=== PATIENT | female | born 1965 | race Caucasian/White ===

== ENCOUNTER → 2022-12-29 07:23 | Outpatient (BNVA) | payer MEDICARE, MEDICAID, SELFPAY | PROVIDERS: PCP Nurse Practitioner Family; Visit Provider Student in an Organized Health Care Education/Training Program | DX: L40.50 Arthropathic psoriasis, unspecified (principal); Z13.1 Encounter for screening for diabetes mellitus | CPT/HCPCS: 36415; 80053; 80061; 83036; 84550; 85025; 85652; 86140; 86481; 86704; 86706; 86709; 86803; 87340; 99202 ==

== ENCOUNTER 2022-12-29 08:34 | Outpatient (REF) | payer MEDICARE, MEDICAID, SELFPAY ==
[2022-12-29 11:01] LABS: MANUAL DIFF FLAG NO
[2022-12-29 11:20] LABS: Basophils Percent Auto 0.7 % (0-2); Eosinophils Absolute Auto 0.2 X10*3/uL (0.0-0.4); Eosinophils Percent Auto 2.5 % (0-4); Hematocrit 38.2 % (37.0-47.0); Hemoglobin 12.5 g/dl (12.0-16.0); Imm Gran Abs Auto 0.02 X10*3/uL (0.00-0.03); Imm Gran Pct Auto 0.3 % (0.0-0.4); Lymphocytes Absolute Auto 1.8 X10*3/uL (1.2-4.9); Mean Corpuscular HGB Conc 32.7 g/dl (31.0-35.0); Mean Corpuscular Hemoglobin 28.5 pg (27.0-33.0); Mean Platelet Volume 12.1 fL (9.4-12.3); Monocytes Absolute Auto 0.6 X10*3/uL (0.1-1.2); Monocytes Percent Auto 9.3 % (2-11); Neutrophils Absolute Auto 3.6 x10*3/uL (2.0-8.3); Neutrophils Percent Auto 58.2 % (45-73); Platelet Count 246 X10*3/uL (160-400); Red Blood Count 4.39 X10*6/uL (4.20-5.50); Red Cell Distribution Width 13.4 % (11.0-16.0); White Blood Count 6.1 X10*3/uL (4.8-10.8)
[2022-12-29 11:36] LABS: Alanine Aminotransferase 24 U/L (0-31); Albumin Level 4.2 g/dL (3.5-5.0); Alkaline Phosphatase 118 U/L (39-117); Anion Gap 12 (12-20); Aspartate Amino Transferase 32 U/L (5-31); Bilirubin Total 0.5 mg/dL (0.0-1.0); Blood Urea Nitrogen 9 mg/dL (9-16); C Reactive Protein 0.36 mg/dL (< or = 0.50); Calcium 9.9 mg/dL (8.4-10.2); Carbon Dioxide 32 mmol/L (22-29); Chloride 103 mmol/L (96-108); Cholesterol 156 mg/dL; Estimated Glomerular Filt Rate > 60; Glucose Random 85 mg/dL (60-115); HDL Cholesterol 38 mg/dL; LDL Cholesterol Calculated 93 mg/dl; Sodium 143 mmol/L (135-145); Total Protein 6.7 g/dL (6.5-8.0); Triglycerides 126 mg/dL; Uric Acid 6.5 mg/dL (2.4-5.7)
[2022-12-29 11:57] LABS: Estimated Average Glucose 103 mg/dL; Hemoglobin A1c % 5.2 %
[2022-12-29 12:01] LABS: Erythrocyte Sedimentation Rate 20 MM/HR (0-20)
[2022-12-29 12:13] LABS: HBS Num1 0.11 mIU/mL (0-7.99); HBc Num1 0.11 S/CO (0.00-0.79); Hepatitis A Antibody IgM 0.19 Index (0-0.79); Hepatitis B Core Antibody Nonreactive (Nonreactive); Hepatitis B Surface Antigen Negative (Negative); ~HepC Num1 0.06 S/CO (0.00-0.79); ~Hepatitis A Antibody IgM Nonreactive (Nonreactive); ~Hepatitis B Surface Antibody NONREACTIVE (Nonreactive); ~Hepatitis C Antibody Nonreactive (Nonreactive)
[2023-01-01 07:54] LABS: TS Negative Control Passed; TS Panel A 0; TS Panel B 2; TS Positive Control Passed; TSpotTB Negative (Negative)
== END 2022-12-29 08:35 | disposition home or self-care (01) ==
LOC: HO.10HDL 08:34
PROVIDERS: Visit Provider Student in an Organized Health Care Education/Training Program
DX: Z13.89 Encounter for screening for other disorder (principal)
CPT/HCPCS: 36415; 80053; 80061; 83036; 84550; 85025; 85652; 86140; 86481; 86704; 86706; 86709; 86803; 87340

== ENCOUNTER 2023-06-09 10:27 | Outpatient (AMB) | payer MEDICARE, MEDICAID, SELFPAY ==
[2023-06-09 10:31] VITALS: BP 142/84; PULSE 77; TEMP 36.7; O2SAT 99; BMI 40.0
--- NOTE | 2023-06-09 10:31 | MHC.OFFVIS ---
Intake Vital Signs 06/09/23 10:31 Height 5 ft 4 in Weight 232 lb 12.93 oz BMI 40.0 BP 142/84 H Position Sitting Pulse 77 Pulse Source Pulse Oximeter Temp 98.1 F Pulse Oximetry (%) 99 Oxygen Delivery Method Room Air Intake Visit Reasons: PsA Intake Note: Pt presents in office as a f/u PsA. pt states hands are very stiff. 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 Required: No Allergies fluticasone Allergy (Intermediate, Verified 06/09/23 10:36) bloody nose NSAIDS (Non-Steroidal Anti-Inflamma Allergy (Intermediate, Verified 06/09/23 10:36) hyperkalemia Seasonal Allergies Allergy (Unknown, Verified 06/09/23 10:36) Unknown amlodipine Adverse Reaction (Severe, Verified 06/09/23 10:36) Swelling Sulfa (Sulfonamide Antibiotics) Adverse Reaction (Mild, Verified 06/09/23 10:36) Unknown Medication List - Last Reconciled 06/09/23 by Gelacio Callahan MD acetaminophen (Tylenol Extra Strength) 1,000 mg PO Q6H PRN albuterol sulfate 90 mcg/actuation (ProAir HFA) 2 puffs inhalation Q6H PRN apremilast (Otezla) 30 mg PO BID azelastine 1 spray intranasal BID PRN calcium carbonate-vitamin D3 600 mg-10 mcg (400 unit) (Calcium 600 + D(3)) 1 tab PO DAILY cholecalciferol (vitamin D3) 25 mcg PO DAILY docusate sodium 100 mg PO BID epinephrine (EpiPen) 0.3 mg IM Q4H PRN furosemide 20 mg PO DAILY hydromorphone 2 mg PO Q6H PRN ipratropium bromide 2 sprays intranasal BID ketotifen fumarate 0.025%(0.035%) (Allergy Eye (ketotifen)) 1 drp ophthalmic (eye) BID levocetirizine 5 mg PO DAILY levothyroxine 112 mcg PO DAILY lidocaine 5% 1 patch topical DAILY naloxone 4 mg/actuation (Narcan) 4 mg intranasal Q2M PRN polyethylene glycol 3350 (Miralax) 17 grams PO DAILY potassium chloride ER 10 mEq PO DAILY prednisone 3 mg PO DAILY pregabalin (Lyrica) 300 mg PO BID ropinirole 0.5 mg PO BEDTIME sennosides (senna) 17.2 mg PO DAILY tofacitinib ER (Xeljanz XR) 11 mg PO DAILY trospium 20 mg PO BID HPI HPI Comments History of Present Illness Details 58 year old female with psoriasis and psoriatic arthritis presents for follow-up. Patient had her right hip replaced back in January and went for a revision in February. States that her right hip is doing well currently. She was off the Otezla around the time of the surgery and her psoriasis came back. Her psoriasis improved as soon as she resumed Otezla. She has been taking Xeljanz regularly for the past 4 months or so. Continues to have pain, swelling and stiffness in her fingers. Initial history: This is a 57-year-old female with the complex past medical history presents for evaluation of psoriatic arthritis. 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 Patient was diagnosed with psoriasis around 2002 and describes numerous therapies including PUVA as well as biologics including Humira and Stelara. Patient states she could not do the injectable drugs. She is currently on Otezla 30 mg Twice daily with good control of her psoriasis. She was diagnosed with psoriatic arthritis in 2019. She failed or could not tolerate leflunomide, methotrexate and sulfasalazine. She had been on Xeljanz with relative good control of her psoriatic arthritis however it was discontinued since July 2022 prior to her left hip replacement it has not been resumed. Patient states that she has been having bilateral hand pain and morning stiffness lasting more than 1 hour. [facility] Medical History Acquired hypothyroidism Adrenal cortical hypofunction Aneurysm, splenic artery Anxiety Asthma CKD (chronic kidney disease), stage IV CTS (carpal tunnel syndrome) GERD (gastroesophageal reflux disease) Glaucoma Hypertension Hypogammaglobulinemia Iron deficiency anemia Low back pain Manic bipolar I disorder Mitral valve regurgitation Morbid obesity DENISE (obstructive sleep apnea) Osteopenia Psoriasis Schizo affective schizophrenia Screening for viral disease Spondylosis Zenker diverticulum Surgical History Deviated septum H/O total knee replacement History of appendectomy History of back surgery History of eyelid surgery History of hip replacement History of tonsillectomy Hx of breast surgery Hx of elbow surgery Hx of foot surgery Family History Father Diabetes Prostate cancer Dementia Lung cancer Brother Asthma Glaucoma Bladder cancer Mother Hypertension Arthritis Social History Household Members: Family Alcohol intake: current Alcohol intake frequency: does not drink Patient Tobacco Use Status: Former Tobacco user Quit Date: 25-30 years Current occupational status: employed 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 Review of Systems [facility] [place] Reports arthralgias, Reports joint swelling and Reports stiffness Physical Exam Vital Signs: Last Vital Signs Temp 98.1 F 06/09/23 10:31 Pulse 77 06/09/23 10:31 BP 142/84 H 06/09/23 10:31 Pulse Ox 99 06/09/23 10:31 Oxygen Delivery Method Room Air 06/09/23 10:31 BMI result Body Mass Index 40.0 Const General: cooperative, healthy appearing and comfortable Nutritional Appearance: obese morbidly obese Orientation/consciousness: patient oriented x3 Limitations: ambulation with cane HEENT Head: Yes normocephalic and Yes atraumatic Mouth: moist mucous membranes Resp Effort & Inspection: normal respiratory effort and able to speak in complete sentences Neuro General: patient oriented x3 Extrem Other: Osteoarthritic changes of both hands with prominent Denise's and Heberden's nodes Puffiness of all patient's fingers tenderness on palpation of her PIP is diffusely. Difficulty to flex all her fingers. Few tender MTPs bilaterally Assessment & Plan Assessment & Plan (1) Psoriatic arthritis: Comment: Diagnosed 2020 Leflunomide ineffective SSZ ineffective & might have caused anemia Methotrexate cause transaminitis with resolution after discontinuation Code(s): L40.50 - Arthropathic psoriasis, unspecified Plan: This is a 57-year-old female with the complex past medical history including psoriasis (dx 2002) and psoriatic arthritis, CKD, chronic anemia (undetermined origin s/p bone marrow biopsy per patient) who presents for psoriatic arthritis follow-up. Patient is currently on Xeljanz and Otezla with very good control of her psoriasis however she continues to have active synovitis affecting her fingers and toes. Will need to change DMARDs. Discussed risks and benefits of Rinvoq. Will DC Xeljanz and start prior authorization for Rinvoq. Continue Otezla 30 mg bid Check x-rays of hands and feet for erosive disease. Labs today and before next visit in 3 month Plan I spent 26 minutes reviewing patient's chart, evaluating patient, ordering diagnostic workup, counseling patient and documenting in the chart Orders: Orders XR hand wrist LT Today L40.50 - Arthropathic psoriasis, unspecified XR hand wrist RT Today L40.50 - Arthropathic psoriasis, unspecified XR ankle LT min 3V Today L40.50 - Arthropathic psoriasis, unspecified XR ankle RT min 3V Today L40.50 - Arthropathic psoriasis, unspecified XR foot LT min 3V Today L40.50 - Arthropathic psoriasis, unspecified XR foot RT min 3V Today L40.50 - Arthropathic psoriasis, unspecified Comprehensive Met. Panel 3 Months L40.50 - Arthropathic psoriasis, unspecified C Reactive Protein 3 Months L40.50 - Arthropathic psoriasis, unspecified Complete Blood Count Auto Diff 3 Months L40.50 - Arthropathic psoriasis, unspecified Erythrocyte Sedimentation Rate 3 Months L40.50 - Arthropathic psoriasis, unspecified Coding Level of Care Code Est Pt Level 4 (34425) Diagnoses Psoriatic arthritis L40.50
== END 2023-06-09 11:10 | disposition home or self-care (01) ==
PROVIDERS: PCP Nurse Practitioner Family; Visit Provider Student in an Organized Health Care Education/Training Program
DX: L40.50 Arthropathic psoriasis, unspecified (principal)
CPT/HCPCS: 99214

== ENCOUNTER → 2023-06-09 10:27 | Outpatient (BNVA) | payer MEDICARE, MEDICAID, SELFPAY | PROVIDERS: Visit Provider Student in an Organized Health Care Education/Training Program | DX: L40.50 Arthropathic psoriasis, unspecified (principal) | CPT/HCPCS: 99212 ==

== ENCOUNTER 2023-06-27 13:59 | Outpatient (REF) | payer MEDICARE, MEDICAID, SELFPAY ==
--- NOTE | ~2023-06-27 | XR_ITS ---
EXAMINATION: Bilateral hand and wrist x-rays CLINICAL INFORMATION: Psoriatic arthritis COMPARISON: None TECHNIQUE: 4 views of each hand and wrist FINDINGS: Right: Bone alignment is normal. No fracture or dislocation. Arthritis at the IP joints with joint space narrowing and osteophyte formation. Mild arthritis at the first MCP and DETENTION joints with joint space narrowing. Soft tissues are unremarkable. Left: Bone alignment is normal. No fracture or dislocation is seen. Osteoarthritis at the IP joints with joint space narrowing and osteophyte formation. Mild osteoarthritis with joint space and small osteophytes narrowing at the first MCP, and first DETENTION joints. There is also joint space narrowing at the second through fifth MCP joints. Soft tissues are unremarkable. 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 There is also joint space narrowing at the left MCP joints.
--- NOTE | ~2023-06-27 | XR_ITS ---
EXAMINATION: XR FOOT, RIGHT XR FOOT, LEFT XR ANKLE, RIGHT XR Ankle, left CLINICAL INFORMATION: Psoriatic arthritis. COMPARISON: None. TECHNIQUE: 3 views of each foot and ankle. FINDINGS: LEFT FOOT: There is surgical hardware post arthrodesis of the 2nd and 3rd MTP joints. There is ulnar deviation of the 2nd and 3rd toes at the MTP joints. Bone alignment is otherwise normal. No fracture or dislocation. Large calcaneal spurs. LEFT ANKLE: Bone alignment is normal. No fracture or dislocation. Normal ankle mortise. Normal soft tissues. RIGHT FOOT: There is mild hallux valgus deformity at the 1st MTP joint. There is ulnar deviation of the 2nd and 3rd toes at the MTP joints. Bone alignment is otherwise normal. There is mild joint space narrowing at the 1st MTP joint. Joint spaces are otherwise normal. Old healed fracture of the proximal phalanx of the 5th toe. No acute fracture. Large calcaneal spurs. RIGHT ANKLE: Bone alignment is normal. No fracture or dislocation. Normal ankle mortise. Normal soft tissues. XR/XR ankle LT min 3V IMPRESSION: Left foot and ankle: Postsurgical arthrodesis of the 2nd and 3rd MTP joints. Ulnar deviation of the 2nd and 3rd toes at the MTP joints. Large calcaneal spurs. Right foot and ankle: Mild hallux valgus deformity and degenerative change at the 1st MTP joint. Ulnar deviation of the 2nd and 3rd toes at the MTP joint. Healed proximal phalanx 5th toe fracture. Large calcaneal spurs.
--- NOTE | ~2023-06-27 | XR_ITS ---
EXAMINATION: XR FOOT, RIGHT XR FOOT, LEFT XR ANKLE, RIGHT XR Ankle, left CLINICAL INFORMATION: Psoriatic arthritis. COMPARISON: None. TECHNIQUE: 3 views of each foot and ankle. FINDINGS: LEFT FOOT: There is surgical hardware post arthrodesis of the 2nd and 3rd MTP joints. There is ulnar deviation of the 2nd and 3rd toes at the MTP joints. Bone alignment is otherwise normal. No fracture or dislocation. Large calcaneal spurs. LEFT ANKLE: Bone alignment is normal. No fracture or dislocation. Normal ankle mortise. Normal soft tissues. RIGHT FOOT: There is mild hallux valgus deformity at the 1st MTP joint. There is ulnar deviation of the 2nd and 3rd toes at the MTP joints. Bone alignment is otherwise normal. There is mild joint space narrowing at the 1st MTP joint. Joint spaces are otherwise normal. Old healed fracture of the proximal phalanx of the 5th toe. No acute fracture. Large calcaneal spurs. RIGHT ANKLE: Bone alignment is normal. No fracture or dislocation. Normal ankle mortise. Normal soft tissues. XR/XR foot RT min 3V IMPRESSION: Left foot and ankle: Postsurgical arthrodesis of the 2nd and 3rd MTP joints. Ulnar deviation of the 2nd and 3rd toes at the MTP joints. Large calcaneal spurs. Right foot and ankle: Mild hallux valgus deformity and degenerative change at the 1st MTP joint. Ulnar deviation of the 2nd and 3rd toes at the MTP joint. Healed proximal phalanx 5th toe fracture. Large calcaneal spurs.
--- NOTE | ~2023-06-27 | XR_ITS ---
EXAMINATION: XR FOOT, RIGHT XR FOOT, LEFT XR ANKLE, RIGHT XR Ankle, left CLINICAL INFORMATION: Psoriatic arthritis. COMPARISON: None. TECHNIQUE: 3 views of each foot and ankle. FINDINGS: LEFT FOOT: There is surgical hardware post arthrodesis of the 2nd and 3rd MTP joints. There is ulnar deviation of the 2nd and 3rd toes at the MTP joints. Bone alignment is otherwise normal. No fracture or dislocation. Large calcaneal spurs. LEFT ANKLE: Bone alignment is normal. No fracture or dislocation. Normal ankle mortise. Normal soft tissues. RIGHT FOOT: There is mild hallux valgus deformity at the 1st MTP joint. There is ulnar deviation of the 2nd and 3rd toes at the MTP joints. Bone alignment is otherwise normal. There is mild joint space narrowing at the 1st MTP joint. Joint spaces are otherwise normal. Old healed fracture of the proximal phalanx of the 5th toe. No acute fracture. Large calcaneal spurs. RIGHT ANKLE: Bone alignment is normal. No fracture or dislocation. Normal ankle mortise. Normal soft tissues. XR/XR foot LT min 3V IMPRESSION: Left foot and ankle: Postsurgical arthrodesis of the 2nd and 3rd MTP joints. Ulnar deviation of the 2nd and 3rd toes at the MTP joints. Large calcaneal spurs. Right foot and ankle: Mild hallux valgus deformity and degenerative change at the 1st MTP joint. Ulnar deviation of the 2nd and 3rd toes at the MTP joint. Healed proximal phalanx 5th toe fracture. Large calcaneal spurs.
--- NOTE | ~2023-06-27 | XR_ITS ---
EXAMINATION: XR FOOT, RIGHT XR FOOT, LEFT XR ANKLE, RIGHT XR Ankle, left CLINICAL INFORMATION: Psoriatic arthritis. COMPARISON: None. TECHNIQUE: 3 views of each foot and ankle. FINDINGS: LEFT FOOT: There is surgical hardware post arthrodesis of the 2nd and 3rd MTP joints. There is ulnar deviation of the 2nd and 3rd toes at the MTP joints. Bone alignment is otherwise normal. No fracture or dislocation. Large calcaneal spurs. LEFT ANKLE: Bone alignment is normal. No fracture or dislocation. Normal ankle mortise. Normal soft tissues. RIGHT FOOT: There is mild hallux valgus deformity at the 1st MTP joint. There is ulnar deviation of the 2nd and 3rd toes at the MTP joints. Bone alignment is otherwise normal. There is mild joint space narrowing at the 1st MTP joint. Joint spaces are otherwise normal. Old healed fracture of the proximal phalanx of the 5th toe. No acute fracture. Large calcaneal spurs. RIGHT ANKLE: Bone alignment is normal. No fracture or dislocation. Normal ankle mortise. Normal soft tissues. XR/XR ankle RT min 3V IMPRESSION: Left foot and ankle: Postsurgical arthrodesis of the 2nd and 3rd MTP joints. Ulnar deviation of the 2nd and 3rd toes at the MTP joints. Large calcaneal spurs. Right foot and ankle: Mild hallux valgus deformity and degenerative change at the 1st MTP joint. Ulnar deviation of the 2nd and 3rd toes at the MTP joint. Healed proximal phalanx 5th toe fracture. Large calcaneal spurs.
--- NOTE | ~2023-06-27 | XR_ITS ---
EXAMINATION: Bilateral hand and wrist x-rays CLINICAL INFORMATION: Psoriatic arthritis COMPARISON: None TECHNIQUE: 4 views of each hand and wrist FINDINGS: Right: Bone alignment is normal. No fracture or dislocation. Arthritis at the IP joints with joint space narrowing and osteophyte formation. Mild arthritis at the first MCP and RETIREMENT joints with joint space narrowing. Soft tissues are unremarkable. Left: Bone alignment is normal. No fracture or dislocation is seen. Osteoarthritis at the IP joints with joint space narrowing and osteophyte formation. Mild osteoarthritis with joint space and small osteophytes narrowing at the first MCP, and first RETIREMENT joints. There is also joint space narrowing at the second through fifth MCP joints. Soft tissues are unremarkable. XR/XR hand wrist LT IMPRESSION: Bilateral osteoarthritis at the IP, first MCP and RETIREMENT joints. There is also joint space narrowing at the left MCP joints.
== END 2023-06-27 14:00 | disposition home or self-care (01) ==
LOC: HO.XRAY 13:59
PROVIDERS: PCP Nurse Practitioner Family; Visit Provider Student in an Organized Health Care Education/Training Program
DX: L40.50 Arthropathic psoriasis, unspecified (principal)
CPT/HCPCS: 73110; 73130; 73610; 73630

== ENCOUNTER 2023-09-05 13:34 | Outpatient (REF) | payer MEDICARE, MEDICAID, SELFPAY ==
[2023-09-05 13:49] LABS: MANUAL DIFF FLAG NO
[2023-09-05 14:15] LABS: Basophils Absolute Auto 0.1 X10*3/uL (0.0-0.2); Basophils Percent Auto 0.9 % (0-2); Eosinophils Absolute Auto 0.1 X10*3/uL (0.0-0.4); Eosinophils Percent Auto 1.5 % (0-4); Hematocrit 37.7 % (37.0-47.0); Hemoglobin 12.4 g/dl (12.0-16.0); Imm Gran Abs Auto 0.02 X10*3/uL (0.00-0.03); Imm Gran Pct Auto 0.4 % (0.0-0.4); Lymphocytes Absolute Auto 1.1 X10*3/uL (1.2-4.9); Lymphocytes Percent Auto 19.8 % (20-40); Mean Corpuscular HGB Conc 32.9 g/dl (31.0-35.0); Mean Corpuscular Hemoglobin 31.4 pg (27.0-33.0); Mean Corpuscular Volume 95.4 fL (80.0-98.0); Mean Platelet Volume 12.4 fL (9.4-12.3); Monocytes Absolute Auto 0.6 X10*3/uL (0.1-1.2); Neutrophils Absolute Auto 3.7 x10*3/uL (2.0-8.3); Neutrophils Percent Auto 67.4 % (45-73); Platelet Count 173 X10*3/uL (160-400); Red Blood Count 3.95 X10*6/uL (4.20-5.50); Red Cell Distribution Width 12.9 % (11.0-16.0); White Blood Count 5.5 X10*3/uL (4.8-10.8)
[2023-09-05 14:45] LABS: Alanine Aminotransferase 21 U/L (0-31); Albumin Level 4.3 g/dL (3.5-5.0); Alkaline Phosphatase 110 U/L (39-117); Anion Gap 16 (12-20); Aspartate Amino Transferase 33 U/L (5-31); Bilirubin Total 0.6 mg/dL (0.0-1.0); Blood Urea Nitrogen 9 mg/dL (9-16); C Reactive Protein < 0.10 mg/dL (< or = 0.50); Calcium 10.3 mg/dL (8.4-10.2); Carbon Dioxide 29 mmol/L (22-29); Chloride 103 mmol/L (96-108); Estimated Glomerular Filt Rate > 60; Glucose Random 97 mg/dL (60-115); Potassium 3.8 mmol/L (3.3-5.1); Sodium 144 mmol/L (135-145)
[2023-09-05 14:52] LABS: Erythrocyte Sedimentation Rate 13 MM/HR (0-20)
== END 2023-09-05 13:35 | disposition home or self-care (01) ==
LOC: HO.LAB 13:34
PROVIDERS: PCP Nurse Practitioner Family; Visit Provider Student in an Organized Health Care Education/Training Program
DX: L40.50 Arthropathic psoriasis, unspecified (principal)
CPT/HCPCS: 36415; 80053; 85025; 85652; 86140

== ENCOUNTER 2023-09-08 10:22 | Outpatient (AMB) | payer MEDICARE, MEDICAID, SELFPAY ==
[2023-09-08 10:26] VITALS: BP 122/68; PULSE 87; TEMP 36.2; O2SAT 99; BMI 38.6
--- NOTE | 2023-09-08 10:26 | A.OFFVIS_ITS ---
Intake Vital Signs 09/08/23 10:26 Height 5 ft 4 in Weight 224 lb 13.944 oz BMI 38.6 BP 122/68 Blood Pressure Location Rt brachial Position Sitting Pulse 87 Pulse Source Pulse Oximeter Temp 97.2 F Temp Source Skin Pulse Oximetry (%) 99 Intake Visit Reasons: 3 mnts f/u for PsA Intake Note: Pt last seen 06/09/23, presents today for follow up and test results. Currently on Otezla and rinvoq. Would like to discuss continued use of rinvoq, feels it is not doing anything different than xeljanz. Casing Builder Required: No Accompanied by: Self / Same As Patient Allergies fluticasone Allergy (Intermediate, Verified 09/08/23 10:30) bloody nose NSAIDS (Non-Steroidal Anti-Inflamma Allergy (Intermediate, Verified 09/08/23 10:30) hyperkalemia Seasonal Allergies Allergy (Unknown, Verified 09/08/23 10:30) Unknown amlodipine Adverse Reaction (Severe, Verified 09/08/23 10:30) Swelling Sulfa (Sulfonamide Antibiotics) Adverse Reaction (Mild, Verified 09/08/23 10:30) Unknown Medication List - Last Reconciled 09/08/23 by Gelacio Callahan MD acetaminophen (Tylenol Extra Strength) 1,000 mg PO Q6H PRN albuterol sulfate 90 mcg/actuation (ProAir HFA) 2 puffs inhalation Q6H PRN apremilast (Otezla) 30 mg PO BID azelastine 1 spray intranasal BID PRN calcium carbonate-vitamin D3 600 mg-10 mcg (400 unit) (Calcium 600 + D(3)) 1 tab PO DAILY cholecalciferol (vitamin D3) 25 mcg PO DAILY docusate sodium 100 mg PO BID epinephrine (EpiPen) 0.3 mg IM Q4H PRN furosemide 20 mg PO DAILY hydromorphone 2 mg PO Q6H PRN ipratropium bromide 2 sprays intranasal BID ketotifen fumarate 0.025%(0.035%) (Allergy Eye (ketotifen)) 1 drp ophthalmic (eye) BID levocetirizine 5 mg PO DAILY levothyroxine 112 mcg PO DAILY lidocaine 5% 1 patch topical DAILY naloxone 4 mg/actuation (Narcan) 4 mg intranasal Q2M PRN polyethylene glycol 3350 (Miralax) 17 grams PO DAILY potassium chloride ER 10 mEq PO DAILY prednisone 3 mg PO DAILY pregabalin (Lyrica) 300 mg PO BID Rinvoq ER (upadacitinib) 15 mg PO DAILY NS ropinirole 0.5 mg PO BEDTIME sennosides (senna) 17.2 mg PO DAILY trospium 20 mg PO BID HPI HPI Comments History of Present Illness Details 58 year old female with psoriasis and ps oriatic arthritis presents for follow-up. She is on Otezla and Rinvoq. States that she does not feel any different since starting switching from Xeljanz to Rinvoq 3 months ago. She continues to have pain and stiffness in her fingers. Gets intermittent triggering of some of her fingers as well. States that her psoriasis is very well controlled. Initial history: This is a 57-year-old female with the complex past medical history presents for evaluation of psoriatic arthritis. 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 Patient was diagnosed with psoriasis around 2002 and describes numerous therapies including PUVA as well as biologics including Humira and Stelara. Patient states she could not do the injectable drugs. She is currently on Otezla 30 mg Twice daily with good control of her psoriasis. She was diagnosed with psoriatic arthritis in 2019. She failed or could not tolerate leflunomide, methotrexate and sulfasalazine. She had been on Xeljanz with relative good control of her psoriatic arthritis however it was discontinued since July 2022 prior to her left hip replacement it has not been resumed. Patient states that she has been having bilateral hand pain and morning stiffness lasting more than 1 hour. [facility] Medical History (Updated 09/08/23 @ 11:06 by Gelacio Callahan MD) Low back pain Spondylosis Psoriasis Zenker diverticulum GERD (gastroesophageal reflux disease) Asthma CKD (chronic kidney disease), stage IV Osteopenia Aneurysm, splenic artery Mitral valve regurgitation Hypertension Glaucoma CTS (carpal tunnel syndrome) DENISE (obstructive sleep apnea) Anxiety Manic bipolar I disorder Schizo affective schizophrenia Iron deficiency anemia Hypogammaglobulinemia Morbid obesity Adrenal cortical hypofunction Acquired hypothyroidism Surgical History Deviated septum History of eyelid surgery Hx of elbow surgery History of appendectomy Hx of breast surgery History of tonsillectomy History of back surgery Hx of foot surgery H/O total knee replacement History of hip replacement Family History Father Diabetes Prostate cancer Dementia Lung cancer Brother Asthma Glaucoma Bladder cancer Mother Hypertension Arthritis Social History Household Members: Family Alcohol intake: current Alcohol intake frequency: does not drink Patient Tobacco Use Status: Former Tobacco user Quit Date: 25-30 years Current occupational status: employed 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 [facility] [place] Reports arthralgias and Reports stiffness Physical Exam Vital Signs: Last Vital Signs Temp 97.2 F 09/08/23 10:26 Pulse 87 09/08/23 10:26 BP 122/68 09/08/23 10:26 Pulse Ox 99 09/08/23 10:26 BMI result Body Mass Index 38.6 Const General: cooperative, healthy appearing and comfortable Nutritional Appearance: obese morbidly obese Orientation/consciousness: patient oriented x3 Limitations: ambulation with cane HEENT Head: Yes normocephalic and Yes atraumatic Mouth: moist mucous membranes Resp Effort & Inspection: normal respiratory effort and able to speak in complete sentences Neuro General: patient oriented x3 Extrem Other: Osteoarthritic changes of both hands with prominent Denise's and Heberden's nodes, tender to palpation Difficulty to flex all her fingers. Triggering of right index, left index finger Assessment & Plan Assessment & Plan (1) Psoriatic arthritis: Comment: Diagnosed 2019 Leflunomide ineffective SSZ ineffective & might have caused anemia Methotrexate cause transaminitis with resolution after discontinuation [employer] had many bruises with self injection Xeljanz switched to Rinvoq 06/2023 Code(s): L40.50 - Arthropathic psoriasis, unspecified Plan: 58-year-old female with psoriasis and psoriatic arthritis returns for follow-up. On Rinvoq 15 mg daily and Otezla 30 mg Twice daily. He had been on Rinvoq for 3 months now. Does not feel any difference. Upon evaluation. I do not see any active synovitis. Her bilateral hand x-rays show significant bilateral hand osteoarthritis. Inflammatory markers are normal. At this point I believe patient's symptoms are likely due to significant hand osteoarthritis rather than psoriatic arthritis. We discussed different treatment options for hand osteoarthritis such as occupational therapy, Tylenol, NSAIDs. Patient states that she cannot use any oral or topical NSAIDs. She takes Tylenol. She is not interested in occupational therapy. Not interested in buying a paraffin wax machi Continue Rinvoq 15 mg daily. Continue Otezla 30 mg Twice daily In the future can consider reducing Rinvoq to 1 tab every other day Labs before next visit in 4 months. (2) Trigger finger: Code(s): M65.30 - Trigger finger, unspecified finger Qualifiers: Trigger finger location: unspecified finger Laterality: unspecified laterality Qualified Code(s): M65.30 - Trigger finger, unspecified finger Plan: Triggering of multiple fingers. Patient not interested injection today. Can consider injection in the future (3) Immunization counseling: Code(s): Z71.85 - Encounter for immunization safety counseling Plan: Discussed ACR vaccination guidelines for adults with autoimmune rheumatic disease on immune suppression. Patient received the flu vaccine and COVID booster for this season. Plan I spent 35 minutes reviewing patient's chart, evaluating patient, ordering diagnostic workup, counseling patient and documenting in the chart Orders: Orders Complete Blood Count Auto Diff 4 Months L40.50 - Arthropathic psoriasis, unspecified C Reactive Protein 4 Months L40.50 - Arthropathic psoriasis, unspecified Erythrocyte Sedimentation Rate 4 Months L40.50 - Arthropathic psoriasis, unspecified Comprehensive Met. Panel 4 Months L40.50 - Arthropathic psoriasis, unspecified Coding Level of Care Code Est Pt Level 4 (81336) Diagnoses Psoriatic arthritis L40.50 Trigger finger, unspecified finger, unspecified laterality M65.30 Trigger finger location: unspecified finger Laterality: unspecified laterality Immunization counseling Z71.85
== END 2023-09-08 11:01 | disposition home or self-care (01) ==
PROVIDERS: PCP Nurse Practitioner Family; Visit Provider Student in an Organized Health Care Education/Training Program
DX: L40.50 Arthropathic psoriasis, unspecified (principal); M65.30 Trigger finger, unspecified finger; Z71.85 Encounter for immunization safety counseling
CPT/HCPCS: 99214

== ENCOUNTER → 2023-09-08 10:22 | Outpatient (BNVA) | payer MEDICARE, MEDICAID, SELFPAY | PROVIDERS: PCP Nurse Practitioner Family; Visit Provider Student in an Organized Health Care Education/Training Program | DX: L40.50 Arthropathic psoriasis, unspecified (principal); M65.30 Trigger finger, unspecified finger; Z71.85 Encounter for immunization safety counseling | CPT/HCPCS: 99212 ==

== ENCOUNTER 2024-01-06 15:48 | Outpatient (REF) | payer MEDICARE, MEDICAID, SELFPAY ==
[2024-01-06 16:06] LABS: MANUAL DIFF FLAG NO
[2024-01-06 17:38] LABS: Basophils Percent Auto 0.7 % (0-2); Eosinophils Percent Auto 0.5 % (0-4); Hematocrit 37.3 % (37.0-47.0); Hemoglobin 12.4 g/dl (12.0-16.0); Imm Gran Abs Auto 0.01 X10*3/uL (0.00-0.03); Imm Gran Pct Auto 0.2 % (0.0-0.4); Lymphocytes Absolute Auto 0.9 X10*3/uL (1.2-4.9); Lymphocytes Percent Auto 21.3 % (20-40); Mean Corpuscular HGB Conc 33.2 g/dl (31.0-35.0); Mean Corpuscular Hemoglobin 31.8 pg (27.0-33.0); Mean Corpuscular Volume 95.6 fL (80.0-98.0); Mean Platelet Volume 12.3 fL (9.4-12.3); Monocytes Absolute Auto 0.5 X10*3/uL (0.1-1.2); Monocytes Percent Auto 11.6 % (2-11); Neutrophils Absolute Auto 2.8 x10*3/uL (2.0-8.3); Neutrophils Percent Auto 65.7 % (45-73); Platelet Count 173 X10*3/uL (160-400); Red Cell Distribution Width 13.2 % (11.0-16.0); White Blood Count 4.2 X10*3/uL (4.8-10.8)
[2024-01-06 18:09] LABS: Alanine Aminotransferase 20 U/L (0-31); Albumin Level 4.2 g/dL (3.5-5.0); Alkaline Phosphatase 102 U/L (39-117); Anion Gap 13 (12-20); Aspartate Amino Transferase 31 U/L (5-31); Bilirubin Total 0.6 mg/dL (0.0-1.0); Blood Urea Nitrogen 8 mg/dL (9-16); C Reactive Protein < 0.04 mg/dL (< or = 0.50); Calcium 9.7 mg/dL (8.4-10.2); Carbon Dioxide 31 mmol/L (22-29); Chloride 105 mmol/L (96-108); Estimated Glomerular Filt Rate 53; Glucose Random 84 mg/dL (60-115); Potassium 3.8 mmol/L (3.3-5.1); Sodium 145 mmol/L (135-145); Total Protein 6.7 g/dL (6.5-8.0)
[2024-01-06 20:39] LABS: Erythrocyte Sedimentation Rate 8 MM/HR (0-20)
== END 2024-01-06 15:49 | disposition home or self-care (01) ==
LOC: HO.LAB 15:48
PROVIDERS: PCP Nurse Practitioner Family; Visit Provider Student in an Organized Health Care Education/Training Program
DX: L40.50 Arthropathic psoriasis, unspecified (principal)
CPT/HCPCS: 36415; 80053; 85025; 85652; 86140

== ENCOUNTER 2024-01-11 13:10 | Outpatient (AMB) | payer MEDICARE, MEDICAID, SELFPAY ==
--- NOTE | 2024-01-11 13:13 | MHC.OFFVIS ---
Intake Vital Signs 01/11/24 13:14 Height 5 ft 4 in Weight 217 lb 6.012 oz BMI 37.3 BP 140/78 H Blood Pressure Location Lt brachial Position Sitting Pulse 90 Pulse Source Pulse Oximeter Pulse Oximetry (%) 97 Oxygen Delivery Method Room Air Intake Visit Reasons: PsA Intake Note: Patient last seen 09/08/23 presents today for follow up and test results. 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 Tracer Required: No Accompanied by: Self / Same As Patient Allergies fluticasone Allergy (Intermediate, Verified 09/08/23 10:30) bloody nose NSAIDS (Non-Steroidal Anti-Inflamma Allergy (Intermediate, Verified 09/08/23 10:30) hyperkalemia Seasonal Allergies Allergy (Unknown, Verified 09/08/23 10:30) Unknown amlodipine Adverse Reaction (Severe, Verified 09/08/23 10:30) Swelling Sulfa (Sulfonamide Antibiotics) Adverse Reaction (Mild, Verified 09/08/23 10:30) Unknown Medication List - Last Reconciled 01/11/24 by Gelacio Callahan MD acetaminophen (Tylenol Extra Strength) 1,000 mg PO Q6H PRN albuterol sulfate 90 mcg/actuation (ProAir HFA) 2 puffs inhalation Q6H PRN apremilast (Otezla) 30 mg PO BID azelastine 1 spray intranasal BID PRN calcium carbonate-vitamin D3 600 mg-10 mcg (400 unit) (Calcium 600 + D(3)) 1 tab PO DAILY cholecalciferol (vitamin D3) 25 mcg PO DAILY docusate sodium 100 mg PO BID epinephrine (EpiPen) 0.3 mg IM Q4H PRN furosemide 20 mg PO DAILY hydromorphone 2 mg PO Q6H PRN ipratropium bromide 2 sprays intranasal BID ketotifen fumarate 0.025%(0.035%) (Allergy Eye (ketotifen)) 1 drp ophthalmic (eye) BID levocetirizine 5 mg PO DAILY levothyroxine 112 mcg PO DAILY lidocaine 5% 1 patch topical DAILY naloxone 4 mg/actuation (Narcan) 4 mg intranasal Q2M PRN polyethylene glycol 3350 (Miralax) 17 grams PO DAILY potassium chloride ER 10 mEq PO DAILY prednisone 3 mg PO DAILY pregabalin (Lyrica) 300 mg PO BID Rinvoq ER (upadacitinib) 15 mg PO DAILY NS ropinirole 0.5 mg PO BEDTIME sennosides (senna) 17.2 mg PO DAILY trospium 20 mg PO BID HPI HPI Comments History of Present Illness Details 58 year old female with psoriasis and psoriatic arthritis presents for follow-up. She is on Otezla and Rinvoq. She states that recently she has been dropping things from her left hand. She mentioned that she had nerve testing of her arms years ago and was told that she has mild carpal tunnel. She had wrist splints at home but she lost them. She has been having splits of her right thumb. This usually happens during wintertime when it is more dry. Sometimes the splits take a very long time to heal and is painful. She applies moisturizers and antibiotics as well as Band-Aids. But they keep recurring. He has been having lower back pain as well as pain on the outside of her right hip recently. She has not been sick over the fall and winter. Initial history: This is a 57-year-old female with the complex past medical history presents for evaluation of psoriatic arthritis. She also has history of CKD, (anemia of undetermined origin s/p bone marrow biopsy per patient) Her previous patient resource specialist left the practice. Patient was diagnosed with psoriasis around 2002 and describes numerous therapies including PUVA as well as biologics including Humira and Stelara. Patient states she could not do the injectable drugs. She is currently on Otezla 30 mg Twice daily with good control of her psoriasis. She was diagnosed with psoriatic arthritis in 2019. She failed or could not tolerate leflunomide, methotrexate and sulfasalazine. She had been on Xeljanz with relative good control of her psoriatic arthritis however it was discontinued since July 2022 prior to her left hip replacement it has not been resumed. Patient states that she has been having bilateral hand pain and morning stiffness lasting more than 1 hour. [facility] Medical History Low back pain Spondylosis Psoriasis Zenker diverticulum GERD (gastroesophageal reflux disease) Asthma CKD (chronic kidney disease), stage IV Osteopenia Aneurysm, splenic artery Mitral valve regurgitation Hypertension Glaucoma CTS (carpal tunnel syndrome) DENISE (obstructive sleep apnea) Anxiety Manic bipolar I disorder Schizo affective schizophrenia Iron deficiency anemia Hypogammaglobulinemia Morbid obesity Adrenal cortical hypofunction Acquired hypothyroidism Surgical History Deviated septum History of eyelid surgery Hx of elbow surgery History of appendectomy Hx of breast surgery History of tonsillectomy History of back surgery Hx of foot surgery H/O total knee replacement History of hip replacement Family History Father Diabetes Prostate cancer Dementia Lung cancer Brother Asthma Glaucoma Bladder cancer Mother Hypertension Arthritis Social History Household Members: Family Alcohol intake: current Alcohol intake frequency: does not drink Patient Tobacco Use Status: Former Tobacco user Quit Date: 25-30 years Current occupational status: employed Current occupation: [employer] Reports back pain, Reports arthralgias and Reports numbness Skin/Breast Reports non-healing lesions Neuro Reports numbness Physical Exam Vital Signs: Last Vital Signs Pulse 90 01/11/24 13:14 BP 140/78 H 01/11/24 13:14 Pulse Ox 97 01/11/24 13:14 Oxygen Delivery Method Room Air 01/11/24 13:14 BMI result Body Mass Index 37.3 Const General: cooperative, healthy appearing and comfortable Nutritional Appearance: obese morbidly obese Orientation/consciousness: patient oriented x3 Limitations: ambulation with cane HEENT Head: Yes normocephalic and Yes atraumatic Mouth: moist mucous membranes Resp Effort & Inspection: normal respiratory effort and able to speak in complete sentences Auscultation: clear to auscultation bilaterally Cardio Rate: regular rate Rhythm: regular rhythm Skin Other: Longitudinal open wounds on right thumb does not look infected Neuro General: patient oriented x3 Extrem Other: Osteoarthritic changes of both hands with no active synovitis Positive Tinel sign on the left Bilateral lower lumbar paraspinal muscle tenderness Right trochanteric bursa area tenderness Assessment & Plan Assessment & Plan (1) Psoriatic arthritis: Comment: Diagnosed 2019 Leflunomide ineffective SSZ ineffective & might have caused anemia Methotrexate cause transaminitis with resolution after discontinuation [employer] had many bruises with self injection Xeljanz switched to Rinvoq 06/2023 effective Code(s): L40.50 - Arthropathic psoriasis, unspecified Plan: 58-year-old female with psoriasis and psoriatic arthritis returns for follow-up. On Rinvoq 15 mg daily and Otezla 30 mg Twice daily. Doing well overall with no active synovitis. Inflammatory markers are normal. Labs showed mild lymphopenia. Reduce Rinvoq to 15 mg every other day Continue with Otezla 30 mg Twice daily Patient is on 3 mg of prednisone for adrenal insufficiency. She is monitored by an endocrinology Advised patient to call the clinic if she develops any new or worsening symptoms Labs before next visit in 4 months. (2) Left carpal tunnel syndrome: Code(s): G56.02 - Carpal tunnel syndrome, left upper limb Plan: Prescribed a wrist splint (3) Dry skin: Code(s): L85.3 - Xerosis cutis Plan: Advised patient to use moisturizers regularly, cover the open wound with cloth based Band-Aids, can use topical antibiotics as needed. Can wear gloves on affected hand Plan I spent 35 minutes reviewing patient's chart, evaluating patient, ordering diagnostic workup, counseling patient and documenting in the chart Orders: Orders Complete Blood Count Auto Diff 4 Months L40.50 - Arthropathic psoriasis, unspecified Comprehensive Met. Panel 4 Months L40.50 - Arthropathic psoriasis, unspecified C Reactive Protein 4 Months L40.50 - Arthropathic psoriasis, unspecified Erythrocyte Sedimentation Rate 4 Months L40.50 - Arthropathic psoriasis, unspecified Medications: New [wrist splint] use nightly & as much as possible throughout the day 1 ea 0RF G56.02 - Carpal tunnel syndrome, left upper limb [wrist splint] use nightly & as much as possible throughout the day 1 ea 0RF G56.02 - Carpal tunnel syndrome, left upper limb Coding Level of Care Code Est Pt Level 4 (37900) Diagnoses Psoriatic arthritis L40.50 Left carpal tunnel syndrome G56.02 Dry skin L85.3
[2024-01-11 13:14] VITALS: BP 140/78; PULSE 90; O2SAT 97; BMI 37.3
== END 2024-01-11 13:47 | disposition home or self-care (01) ==
PROVIDERS: PCP Nurse Practitioner Family; Visit Provider Student in an Organized Health Care Education/Training Program
DX: L40.50 Arthropathic psoriasis, unspecified (principal); G56.02 Carpal tunnel syndrome, left upper limb; L85.3 Xerosis cutis
CPT/HCPCS: 99214

== ENCOUNTER → 2024-01-11 13:10 | Outpatient (BNVA) | payer MEDICARE, MEDICAID, SELFPAY | PROVIDERS: PCP Nurse Practitioner Family; Visit Provider Student in an Organized Health Care Education/Training Program | DX: L40.50 Arthropathic psoriasis, unspecified (principal); L85.3 Xerosis cutis; G56.02 Carpal tunnel syndrome, left upper limb | CPT/HCPCS: 99212 ==

== ENCOUNTER 2024-05-07 12:33 | Outpatient (REF) | payer MEDICARE, MEDICAID, SELFPAY ==
[2024-05-07 12:58] LABS: MANUAL DIFF FLAG NO
[2024-05-07 13:52] LABS: Basophils Percent Auto 0.8 % (0-2); Eosinophils Absolute Auto 0.1 X10*3/uL (0.0-0.4); Eosinophils Percent Auto 2.3 % (0-4); Hematocrit 39.1 % (37.0-47.0); Hemoglobin 12.3 g/dl (12.0-16.0); Imm Gran Abs Auto 0.01 X10*3/uL (0.00-0.03); Imm Gran Pct Auto 0.3 % (0.0-0.4); Lymphocytes Absolute Auto 0.9 X10*3/uL (1.2-4.9); Lymphocytes Percent Auto 22.2 % (20-40); Mean Corpuscular HGB Conc 31.5 g/dl (31.0-35.0); Mean Corpuscular Hemoglobin 31.1 pg (27.0-33.0); Mean Corpuscular Volume 98.7 fL (80.0-98.0); Monocytes Absolute Auto 0.4 X10*3/uL (0.1-1.2); Neutrophils Absolute Auto 2.5 x10*3/uL (2.0-8.3); Neutrophils Percent Auto 63.4 % (45-73); Platelet Count 150 X10*3/uL (160-400); Red Blood Count 3.96 X10*6/uL (4.20-5.50); Red Cell Distribution Width 13.1 % (11.0-16.0); White Blood Count 3.9 X10*3/uL (4.8-10.8)
[2024-05-07 14:16] LABS: Alanine Aminotransferase 22 U/L (0-31); Alkaline Phosphatase 121 U/L (39-117); Anion Gap 11 (12-20); Aspartate Amino Transferase 28 U/L (5-31); Bilirubin Total 0.5 mg/dL (0.0-1.0); Blood Urea Nitrogen 7 mg/dL (9-16); C Reactive Protein 1.86 mg/dL (< or = 0.50); Calcium 9.4 mg/dL (8.4-10.2); Carbon Dioxide 29 mmol/L (22-29); Chloride 107 mmol/L (96-108); Estimated Glomerular Filt Rate 51; Glucose Random 95 mg/dL (60-115); Potassium 4.4 mmol/L (3.3-5.1); Sodium 143 mmol/L (135-145); Total Protein 6.7 g/dL (6.5-8.0)
[2024-05-07 14:31] LABS: Erythrocyte Sedimentation Rate 23 MM/HR (0-20)
== END 2024-05-07 12:34 | disposition home or self-care (01) ==
LOC: HO.LAB 12:33
PROVIDERS: PCP Nurse Practitioner Family; Visit Provider Student in an Organized Health Care Education/Training Program
DX: L40.50 Arthropathic psoriasis, unspecified (principal)
CPT/HCPCS: 36415; 80053; 85025; 85652; 86140

== ENCOUNTER 2024-05-15 09:54 | Outpatient (AMB) | payer MEDICARE, MEDICAID, SELFPAY ==
--- NOTE | 2024-05-15 09:58 | MHC.OFFVIS ---
Vital Signs 05/15/24 10:09 Height 5 ft 4 in Weight 220 lb 7.396 oz BMI 37.8 BP 132/62 Blood Pressure Location Rt brachial Position Sitting Pulse 79 Pulse Source Pulse Oximeter Pulse Oximetry (%) 99 Oxygen Delivery Method Room Air Intake Visit Reasons: PsA/CM Intake Note: Patient presents for PsA. Hands very stiff and swollen. Allergies fluticasone Allergy (Intermediate, Verified 05/15/24 10:02) bloody nose NSAIDS (Non-Steroidal Anti-Inflamma Allergy (Intermediate, Verified 05/15/24 10:02) hyperkalemia Seasonal Allergies Allergy (Unknown, Verified 05/15/24 10:02) Unknown amlodipine Adverse Reaction (Severe, Verified 05/15/24 10:02) Swelling Sulfa (Sulfonamide Antibiotics) Adverse Reaction (Mild, Verified 05/15/24 10:02) Unknown Medication List - Last Reconciled 05/15/24 by Gelacio Callahan MD acetaminophen (Tylenol Extra Strength) 1,000 mg PO Q6H PRN albuterol sulfate 90 mcg/actuation (ProAir HFA) 2 puffs inhalation Q6H PRN apremilast (Otezla) 30 mg PO BID azelastine 1 spray intranasal BID PRN calcium carbonate-vitamin D3 600 mg-10 mcg (400 unit) (Calcium 600 + D(3)) 1 tab PO DAILY cholecalciferol (vitamin D3) 25 mcg PO DAILY hydromorphone 2 mg PO Q6H PRN ipratropium bromide 2 sprays intranasal BID ketotifen fumarate 0.025%(0.035%) (Allergy Eye (ketotifen)) 1 drp ophthalmic (eye) BID levocetirizine 5 mg PO DAILY levothyroxine 112 mcg PO DAILY lidocaine 5% 1 patch topical DAILY naloxone 4 mg/actuation (Narcan) 4 mg intranasal Q2M PRN oxycodone 5 mg PO DAILY PRN prednisone 3 mg PO DAILY pregabalin (Lyrica) 300 mg PO BID Rinvoq ER (upadacitinib) 15 mg PO DAILY NS HPI Comments Details: 59 year old female with psoriasis and psoriatic arthritis presents for follow-up. Last visit we lowered her Rinvoq to 15 mg every other day due to mild lymphopenia. She remains on Otezla 30 mg Twice daily prescribed by vehicle maintenance technician. She states that she feels much more swelling and stiffness of her fingers. Morning stiffness of her fingers lasts hours. Has pain in her feet. Has not had any infections recently Initial history: This is a 57-year-old female with the complex past medical history presents for evaluation of psoriatic arthritis. She also has history of CKD, (anemia of undetermined origin s/p bone marrow biopsy per patient) Her previous celery packer left the practice. Patient was diagnosed with psoriasis around 2002 and describes numerous therapies including PUVA as well as biologics including Humira and Stelara. Patient states she could not do the injectable drugs. She is currently on Otezla 30 mg Twice daily with good control of her psoriasis. She was diagnosed with psoriatic arthritis in 2019. She failed or could not tolerate leflunomide, methotrexate and sulfasalazine. She had been on Xeljanz with relative good control of her psoriatic arthritis however it was discontinued since July 2022 prior to her left hip replacement it has not been resumed. Patient states that she has been having bilateral hand pain and morning stiffness lasting more than 1 hour. [facility] [place] Medical History Low back pain Spondylosis Psoriasis Zenker diverticulum GERD (gastroesophageal reflux disease) Asthma CKD (chronic kidney disease), stage IV Osteopenia Aneurysm, splenic artery Mitral valve regurgitation Hypertension Glaucoma CTS (carpal tunnel syndrome) DENISE (obstructive sleep apnea) Anxiety Manic bipolar I disorder Schizo affective schizophrenia Iron deficiency anemia Hypogammaglobulinemia Morbid obesity Adrenal cortical hypofunction Acquired hypothyroidism Surgical History Deviated septum History of eyelid surgery Hx of elbow surgery History of appendectomy Hx of breast surgery History of tonsillectomy History of back surgery Hx of foot surgery H/O total knee replacement History of hip replacement Family History Father Diabetes Prostate cancer Dementia Lung cancer Brother Asthma Glaucoma Bladder cancer Mother Hypertension Arthritis Social History Household Members: Family Alcohol intake: current Alcohol intake frequency: does not drink Patient Tobacco Use Status: Former Tobacco user Current occupational status: employed 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 [employer] Reports back pain, Reports arthralgias, Reports joint swelling, Reports numbness and Reports stiffness Neuro Reports numbness Physical Exam Vital Signs: Last Vital Signs Pulse 79 05/15/24 10:09 BP 132/62 05/15/24 10:09 Pulse Ox 99 05/15/24 10:09 Oxygen Delivery Method Room Air 05/15/24 10:09 BMI result Body Mass Index 37.8 Const General: cooperative, healthy appearing and comfortable Nutritional Appearance: obese morbidly obese Orientation/consciousness: patient oriented x3 Limitations: ambulation with cane HEENT Head: Yes normocephalic and Yes atraumatic Mouth: moist mucous membranes Resp Effort & Inspection: normal respiratory effort and able to speak in complete sentences Auscultation: clear to auscultation bilaterally Cardio Rate: regular rate Rhythm: regular rhythm Skin Other: Bilateral athlete's foot Neuro General: patient oriented x3 Extrem Other: Significant Osteoarthritic changes of both. Right 1st PIP swelling and tenderness Right 3rd MCP swelling and tenderness Right 3rd flexor tendon tenderness Left 3rd and 4th MCP swelling and tenderness Assessment & Plan Assessment & Plan (1) Psoriatic arthritis: Comment: Diagnosed 2019 Leflunomide ineffective SSZ ineffective & might have caused anemia Methotrexate cause transaminitis with resolution after discontinuation Javierrickie & ben had many bruises with self injection Xeljanz switched to Rinvoq 06/2023 effective Code(s): L40.50 - Arthropathic psoriasis, unspecified Category: Medical Plan: 58-year-old female with psoriasis and psoriatic arthritis returns for follow-up. Last visit we reduced her Rinvoq to 15 mg every other day due to mild lymphopenia. She remains on Otezla 30 mg Twice daily prescribed by Dermatology Today there is active synovitis on exam of multiple fingers and MCPs. Increase Rinvoq back to 15 mg p.o. daily Continue with Otezla 30 mg Twice daily Patient is on 3 mg of prednisone for adrenal insufficiency. She is monitored by an endocrinology We will continue to watch her lymphopenia. Patient has not had any serious infections. She received the Shingrix vaccine Labs before next visit in 3 months Plan I spent 25 minutes reviewing patient's chart, evaluating patient, ordering diagnostic workup, counseling patient and documenting in the chart Orders: Orders Complete Blood Count Auto Diff 3 Months L40.50 - Arthropathic psoriasis, unspecified C Reactive Protein 3 Months L40.50 - Arthropathic psoriasis, unspecified Erythrocyte Sedimentation Rate 3 Months L40.50 - Arthropathic psoriasis, unspecified Comprehensive Met. Panel 3 Months L40.50 - Arthropathic psoriasis, unspecified Coding Level of Care Code Est Pt Level 4 (41152) Diagnoses Psoriatic arthritis L40.50
[2024-05-15 10:09] VITALS: BP 132/62; PULSE 79; O2SAT 99; BMI 37.8
== END 2024-05-15 10:35 | disposition home or self-care (01) ==
PROVIDERS: PCP Nurse Practitioner Family; Visit Provider Student in an Organized Health Care Education/Training Program
DX: L40.50 Arthropathic psoriasis, unspecified (principal)
CPT/HCPCS: 99214

== ENCOUNTER → 2024-05-15 09:54 | Outpatient (BNVA) | payer MEDICARE, MEDICAID, SELFPAY | PROVIDERS: PCP Nurse Practitioner Family; Visit Provider Student in an Organized Health Care Education/Training Program | DX: L40.50 Arthropathic psoriasis, unspecified (principal) | CPT/HCPCS: 99212 ==

== ENCOUNTER 2024-08-07 11:25 | Outpatient (REF) | payer MEDICARE, MEDICAID, SELFPAY ==
[2024-08-07 11:55] LABS: MANUAL DIFF FLAG NO
[2024-08-07 12:28] LABS: Basophils Percent Auto 0.8 % (0-2); Eosinophils Percent Auto 0.8 % (0-4); Hematocrit 40.8 % (37.0-47.0); Hemoglobin 13.1 g/dl (12.0-16.0); Lymphocytes Absolute Auto 1.4 X10*3/uL (1.2-4.9); Lymphocytes Percent Auto 39.1 % (20-40); Mean Corpuscular HGB Conc 32.1 g/dl (31.0-35.0); Mean Corpuscular Hemoglobin 31.2 pg (27.0-33.0); Mean Corpuscular Volume 97.1 fL (80.0-98.0); Mean Platelet Volume 11.7 fL (9.4-12.3); Monocytes Absolute Auto 0.5 X10*3/uL (0.1-1.2); Monocytes Percent Auto 13.4 % (2-11); Neutrophils Absolute Auto 1.6 x10*3/uL (2.0-8.3); Neutrophils Percent Auto 45.9 % (45-73); Platelet Count 183 X10*3/uL (160-400); Red Cell Distribution Width 13.1 % (11.0-16.0); White Blood Count 3.6 X10*3/uL (4.8-10.8)
[2024-08-07 12:47] LABS: Alanine Aminotransferase 28 U/L (0-31); Albumin Level 4.3 g/dL (3.5-5.0); Alkaline Phosphatase 82 U/L (39-117); Anion Gap 12 (12-20); Aspartate Amino Transferase 51 U/L (5-31); Bilirubin Total 0.6 mg/dL (0.0-1.0); Blood Urea Nitrogen 13 mg/dL (9-16); C Reactive Protein < 0.04 mg/dL (< or = 0.50); Calcium 10.1 mg/dL (8.4-10.2); Carbon Dioxide 27 mmol/L (22-29); Chloride 107 mmol/L (96-108); Estimated Glomerular Filt Rate 35; Glucose Random 120 mg/dL (60-115); Potassium 4.1 mmol/L (3.3-5.1); Sodium 142 mmol/L (135-145); Total Protein 6.7 g/dL (6.5-8.0)
[2024-08-07 13:16] LABS: Erythrocyte Sedimentation Rate 5 MM/HR (0-20)
== END 2024-08-07 11:26 | disposition home or self-care (01) ==
LOC: HO.LAB 11:25
PROVIDERS: PCP Nurse Practitioner Family; Visit Provider Student in an Organized Health Care Education/Training Program
DX: L40.50 Arthropathic psoriasis, unspecified (principal)
CPT/HCPCS: 36415; 80053; 85025; 85652; 86140

== ENCOUNTER 2024-08-14 09:50 | Outpatient (AMB) | payer MEDICARE, MEDICAID, SELFPAY ==
--- NOTE | 2024-08-14 09:52 | A.OFFVIS_ITS ---
Vital Signs 08/14/24 09:57 Height 5 ft 4 in Weight 217 lb 2.485 oz BMI 37.3 BP 136/64 Blood Pressure Location Rt brachial Position Sitting Pulse 68 Pulse Source Pulse Oximeter Pulse Oximetry (%) 100 Oxygen Delivery Method Room Air Intake Visit Reasons: PsA Intake Note: Patient presents for PsA. Allergies fluticasone Allergy (Intermediate, Verified 08/14/24 09:55) bloody nose NSAIDS (Non-Steroidal Anti-Inflamma Allergy (Intermediate, Verified 08/14/24 09:55) hyperkalemia Seasonal Allergies Allergy (Unknown, Verified 08/14/24 09:55) Unknown amlodipine Adverse Reaction (Severe, Verified 08/14/24 09:55) Swelling Sulfa (Sulfonamide Antibiotics) Adverse Reaction (Mild, Verified 08/14/24 09:55) Unknown Medication List - Last Reconciled 08/14/24 by Gelacio Callahan MD acetaminophen (Tylenol Extra Strength) 1,000 mg PO Q6H PRN albuterol sulfate 90 mcg/actuation (ProAir HFA) 2 puffs inhalation Q6H PRN apremilast (Otezla) 30 mg PO BID azelastine 1 spray intranasal BID PRN calcium carbonate-vitamin D3 600 mg-10 mcg (400 unit) (Calcium 600 + D(3)) 1 tab PO DAILY cholecalciferol (vitamin D3) 25 mcg PO DAILY hydromorphone 2 mg PO Q6H PRN ipratropium bromide 2 sprays intranasal BID ketotifen fumarate 0.025%(0.035%) (Allergy Eye (ketotifen)) 1 drp ophthalmic (ey e) BID levocetirizine 5 mg PO DAILY levothyroxine 112 mcg PO DAILY lidocaine 5% 1 patch topical DAILY naloxone 4 mg/actuation (Narcan) 4 mg intranasal Q2M PRN oxycodone 5 mg PO DAILY PRN prednisone 3 mg PO DAILY pregabalin (Lyrica) 300 mg PO BID Rinvoq ER (upadacitinib) 15 mg PO DAILY NS HPI Comments Details: 59 year old female with psoriasis and psoriatic arthritis presents for follow- up. She is on Otezla 30 mg Twice daily and Rinvoq 15 mg p.o. daily. She is doing quite well with no flare-ups of psoriatic arthritis or psoriasis. She has not having worsening symptoms of left knee osteoarthritis and scheduled for left knee replacement next week. She has been having worsening symptoms of bilateral hand osteoarthritis and she was evaluated by hand surgeon and joint replacement of 1 of her fingers was suggested. Initial history: This is a 57-year-old female with the complex past medical history presents for evaluation of psoriatic arthritis. She also has history of CKD, (anemia of undetermined origin s/p bone marrow biopsy per patient) Her previous regional production manager left the practice. Patient was diagnosed with psoriasis around 2002 and describes numerous therapies including PUVA as well as biologics including Humira and Stelara. Patient states she could not do the injectable drugs. She is currently on Otezla 30 mg Twice daily with good control of her psoriasis. She was diagnosed with psoriatic arthritis in 2019. She failed or could not tolerate leflunomide, methotrexate and sulfasalazine. She had been on Xeljanz with relative good control of her psoriatic arthritis however it was discontinued since July 2022 prior to her left hip replacement it has not been resumed. Patient states that she has been having bilateral hand pain and morning stiffness lasting more than 1 hour. [facility] Medical History Low back pain Spondylosis Psoriasis Zenker diverticulum GERD (gastroesophageal reflux disease) Asthma CKD (chronic kidney disease), stage IV Osteopenia Aneurysm, splenic artery Mitral valve regurgitation Hypertension Glaucoma CTS (carpal tunnel syndrome) DENISE (obstructive sleep apnea) Anxiety Manic bipolar I disorder Schizo affective schizophrenia Iron deficiency anemia Hypogammaglobulinemia Morbid obesity Adrenal cortical hypofunction Acquired hypothyroidism Surgical History Deviated septum History of eyelid surgery Hx of elbow surgery History of appendectomy Hx of breast surgery History of tonsillectomy History of back surgery Hx of foot surgery H/O total knee replacement History of hip replacement Family History Father Diabetes Prostate cancer Dementia Lung cancer Brother Asthma Glaucoma Bladder cancer Mother Hypertension Arthritis Social History Household Members: Family Alcohol intake: current Alcohol intake frequency: does not drink Patient Tobacco Use Status: Former Tobacco user Current occupational status: employed 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 Review of Systems [facility] Reports arthralgias and Reports stiffness Skin/Breast Denies rash Physical Exam Vital Signs: Last Vital Signs Pulse 68 08/14/24 09:57 BP 136/64 08/14/24 09:57 Pulse Ox 100 08/14/24 09:57 Oxygen Delivery Method Room Air 08/14/24 09:57 BMI result Body Mass Index 37.3 Const General: cooperative, healthy appearing and comfortable Nutritional Appearance: obese morbidly obese Orientation/consciousness: patient oriented x3 Limitations: ambulation with cane HEENT Head: Yes normocephalic and Yes atraumatic Mouth: moist mucous membranes Resp Effort & Inspection: normal respiratory effort and able to speak in complete sentences Cardio Rate: regular rate Rhythm: regular rhythm Skin Other: No active psoriasis rashes noted Neuro General: patient oriented x3 Extrem Other: Significant Osteoarthritic changes of both hands with multiple trigger fingers No active synovitis today Left knee warmth crepitus and pain with range of motion Assessment & Plan Assessment & Plan (1) Psoriatic arthritis: Comment: Diagnosed 2019 Leflunomide ineffective SSZ ineffective & might have caused anemia Methotrexate cause transaminitis with resolution after discontinuation [place] had many bruises with self injection Xeljanz switched to Rinvoq 06/2023 effective Code(s): L40.50 - Arthropathic psoriasis, unspecified Category: Medical Plan: 59-year-old female with psoriasis and psoriatic arthritis returns for follow-up. On Otezla 30 mg Twice daily prescribed by Dermatology and Rinvoq 15 mg p.o. daily. She is doing well with no active synovitis and no active psoriasis rashes Continue with Otezla 30 mg Twice daily and Rinvoq 15 mg p.o. daily. Mild bump in creatinine but creatinine clearance remains above 15, continue to monitor her kidney and liver function Patient is on 3 mg of prednisone for adrenal insufficiency. She is monitored by an endocrinology Patient has not had any serious infections. She received the Shingrix vaccine Labs before next visit in 3 months (2) Osteoarthritis of hands, bilateral: Code(s): M19.041 - Primary osteoarthritis, right hand; M19.042 - Primary osteoarthritis, left hand Category: Medical Qualifiers: Osteoarthritis type: primary Qualified Code(s): M19.041 - Primary osteoarthritis, right hand; M19.042 - Primary osteoarthritis, left hand Plan: Follow-up with hand surgeon Referred to OT. Consider finger splints (3) Pre-op evaluation: Code(s): Z01.818 - Encounter for other preprocedural examination Category: Medical Plan: Patient going for left knee replacement next week Was evaluated by disposition clerk and stress dose steroids was suggested perioperatively Rinvoq to be held 3 days before surgery, patient has a follow-up appointment 2 weeks after surgery, if there are signs of reasonable wound healing with no signs of infection patient can restart Rinvoq Otezla can be continued throughout (4) Trigger finger: Code(s): M65.30 - Trigger finger, unspecified finger Category: Medical Qualifiers: Trigger finger location: unspecified finger Laterality: unspecified laterality Qualified Code(s): M65.30 - Trigger finger, unspecified finger Plan: Referred to OT. Consider finger splints Follow-up with hand surgery Plan I spent 45 minutes reviewing patient's chart, evaluating patient, ordering diagnostic workup, counseling patient and documenting in the chart Orders: Orders Complete Blood Count Auto Diff 3 Months L40.50 - Arthropathic psoriasis, unspecified Comprehensive Met. Panel 3 Months L40.50 - Arthropathic psoriasis, unspecified Erythrocyte Sedimentation Rate 3 Months L40.50 - Arthropathic psoriasis, unspecified OT Evaluation and Treatment Today M19.041 - Primary osteoarthritis, right hand, M19.042 - Primary osteoarthritis, left hand, M65.30 - Trigger finger, unsp ecified finger C Reactive Protein 3 Months L40.50 - Arthropathic psoriasis, unspecified Coding Level of Care Code Est Pt Level 5 (50419) Diagnoses Psoriatic arthritis L40.50 Primary osteoarthritis of both hands M19.041; M19.042 Osteoarthritis type: primary Pre-op evaluation Z01.818 Trigger finger, unspecified finger, unspecified laterality M65.30 Trigger finger location: unspecified finger Laterality: unspecified laterality
[2024-08-14 09:57] VITALS: BP 136/64; PULSE 68; O2SAT 100; BMI 37.3
== END 2024-08-14 10:23 | disposition home or self-care (01) ==
PROVIDERS: PCP Nurse Practitioner Family; Visit Provider Student in an Organized Health Care Education/Training Program
DX: L40.50 Arthropathic psoriasis, unspecified (principal); M19.041 Primary osteoarthritis, right hand; M19.042 Primary osteoarthritis, left hand; Z01.818 Encounter for other preprocedural examination; M65.30 Trigger finger, unspecified finger
CPT/HCPCS: 99215

== ENCOUNTER → 2024-08-14 09:50 | Outpatient (BNVA) | payer MEDICARE, MEDICAID, SELFPAY | PROVIDERS: PCP Nurse Practitioner Family; Visit Provider Student in an Organized Health Care Education/Training Program | DX: Z01.818 Encounter for other preprocedural examination (principal); L40.50 Arthropathic psoriasis, unspecified; M19.041 Primary osteoarthritis, right hand; M19.042 Primary osteoarthritis, left hand; M65.30 Trigger finger, unspecified finger | CPT/HCPCS: 99212 ==

== ENCOUNTER 2024-11-20 10:02 | Outpatient (AMB) | payer MEDICARE, MEDICAID, SELFPAY ==
--- NOTE | 2024-11-20 10:03 | MHC.OFFVIS ---
Vital Signs 11/20/24 10:08 Height 5 ft 4 in Weight 202 lb 13.204 oz BMI 34.8 BP 134/80 Blood Pressure Location Lt brachial Position Sitting Pulse 68 Pulse Source Pulse Oximeter Pulse Oximetry (%) 97 Oxygen Delivery Method Room Air Intake Visit Reasons: PSA Intake Note: Patient presents for PsA. Allergies fluticasone Allergy (Intermediate, Verified 11/20/24 10:07) bloody nose NSAIDS (Non-Steroidal Anti-Inflamma Allergy (Intermediate, Verified 11/20/24 10:07) hyperkalemia Seasonal Allergies Allergy (Unknown, Verified 11/20/24 10:07) Unknown amlodipine Adverse Reaction (Severe, Verified 11/20/24 10:07) Swelling Sulfa (Sulfonamide Antibiotics) Adverse Reaction (Mild, Verified 11/20/24 10:07) Unknown Medication List - Last Reconciled 11/20/24 by Gelacio Callahan MD acetaminophen (Tylenol Extra Strength) 1,000 mg PO Q6H PRN albuterol sulfate 90 mcg/actuation (ProAir HFA) 2 puffs inhalation Q6H PRN apremilast (Otezla) 30 mg PO BID azelastine 1 spray intranasal BID PRN calcium carbonate-vitamin D3 600 mg-10 mcg (400 unit) (Calcium 600 + D(3)) 1 tab PO DAILY cholecalciferol (vitamin D3) 25 mcg PO DAILY hydromorphone 2 mg PO Q6H PRN ipratropium bromide 2 sprays intranasal BID ketotifen fumarate 0.025%(0.035%) (Allergy Eye (ketotifen)) 1 drp ophthalmic (eye) BID levocetirizine 5 mg PO DAILY levothyroxine 112 mcg PO DAILY lidocaine 5% 1 patch topical DAILY naloxone 4 mg/actuation (Narcan) 4 mg intranasal Q2M PRN oxycodone 5 mg PO DAILY PRN prednisone 3 mg PO DAILY pregabalin (Lyrica) 300 mg PO BID Rinvoq ER (upadacitinib) 15 mg PO DAILY NS HPI Comments Details: 59 year old female with psoriasis and psoriatic arthritis presents for follow-up. She is on Otezla 30 mg Twice daily and Rinvoq 15 mg p.o. daily. She is doing quite well with no flare-ups of psoriatic arthritis or psoriasis. She is s/p left knee replacement and her knee is doing well. She has been going to occupational therapy for her hand osteoarthritis and trigger fingers without much improvement. She continues to have intermittent pain and achiness of her fingers as well as intermittent triggering. She mentions that 3 weeks ago she had a sinus infection for about 6 days that resolved, she was not eating well at the time, since then she has not been having a good appetite, she denies any diarrhea or vomiting. Her PCP is looking into her weight loss Initial history: This is a 57-year-old female with the complex past medical history presents for evaluation of psoriatic arthritis. 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 Patient was diagnosed with psoriasis around 2002 and describes numerous therapies including PUVA as well as biologics including Humira and Stelara. Patient states she could not do the injectable drugs. She is currently on Otezla 30 mg Twice daily with good control of her psoriasis. She was diagnosed with psoriatic arthritis in 2019. She failed or could not tolerate leflunomide, methotrexate and sulfasalazine. She had been on Xeljanz with relative good control of her psoriatic arthritis however it was discontinued since July 2022 prior to her left hip replacement it has not been resumed. Patient states that she has been having bilateral hand pain and morning stiffness lasting more than 1 hour. [facility] Medical History Low back pain Spondylosis Psoriasis Zenker diverticulum GERD (gastroesophageal reflux disease) Asthma CKD (chronic kidney disease), stage IV Osteopenia Aneurysm, splenic artery Mitral valve regurgitation Hypertension Glaucoma CTS (carpal tunnel syndrome) DENISE (obstructive sleep apnea) Anxiety Manic bipolar I disorder Schizo affective schizophrenia Iron deficiency anemia Hypogammaglobulinemia Morbid obesity Adrenal cortical hypofunction Acquired hypothyroidism Surgical History Deviated septum History of eyelid surgery Hx of elbow surgery History of appendectomy Hx of breast surgery History of tonsillectomy History of back surgery Hx of foot surgery H/O total knee replacement History of hip replacement Family History Father Diabetes Prostate cancer Dementia Lung cancer Brother Asthma Glaucoma Bladder cancer Mother Hypertension Arthritis Social History Household Members: Family Alcohol intake: current Alcohol intake frequency: does not drink Patient Tobacco Use Status: Former Tobacco user Current occupational status: employed 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 Review of Systems Const Reports weight loss Musc Reports arthralgias and Reports stiffness Skin/Breast Denies rash Physical Exam Vital Signs: Last Vital Signs Pulse 68 11/20/24 10:08 BP 134/80 11/20/24 10:08 Pulse Ox 97 11/20/24 10:08 Oxygen Delivery Method Room Air 11/20/24 10:08 BMI result Body Mass Index 34.8 Const General: cooperative, healthy appearing and comfortable Nutritional Appearance: obese morbidly obese Orientation/consciousness: patient oriented x3 Limitations: ambulation with cane HEENT Head: Yes normocephalic and Yes atraumatic Mouth: moist mucous membranes Resp Effort & Inspection: normal respiratory effort and able to speak in complete sentences Cardio Rate: regular rate Rhythm: regular rhythm Skin Other: No active psoriasis rashes noted Neuro General: patient oriented x3 Extrem Other: Significant Osteoarthritic changes of both hands with multiple tender joints but nothing swollen multiple trigger fingers No active synovitis today Assessment & Plan Assessment & Plan (1) Psoriatic arthritis: Comment: Diagnosed 2019 Leflunomide ineffective SSZ ineffective & might have caused anemia Methotrexate cause transaminitis with resolution after discontinuation [employer] had many bruises with self injection Xeljanz switched to Rinvoq 06/2023 effective Code(s): L40.50 - Arthropathic psoriasis, unspecified Category: Medical Plan: 59-year-old female with psoriasis and psoriatic arthritis returns for follow-up. On Otezla 30 mg Twice daily prescribed by Dermatology and Rinvoq 15 mg p.o. daily. She is doing well with no active synovitis and no active psoriasis rashes Continue with Otezla 30 mg Twice daily and Rinvoq 15 mg p.o. daily. Patient is on 3 mg of prednisone for adrenal insufficiency. She is monitored by an endocrinology Patient has not had any serious infections. She received the Shingrix vaccine Labs before next visit in 4 months (2) Osteoarthritis of hands, bilateral: Code(s): M19.041 - Primary osteoarthritis, right hand; M19.042 - Primary osteoarthritis, left hand Category: Medical Qualifiers: Osteoarthritis type: primary Qualified Code(s): M19.041 - Primary osteoarthritis, right hand; M19.042 - Primary osteoarthritis, left hand Plan: Has been going to OT, has not noticed much improvement, follow-up with hand surgeon (3) Trigger finger: Code(s): M65.30 - Trigger finger, unspecified finger Category: Medical Qualifiers: Trigger finger location: unspecified finger Laterality: unspecified laterality Qualified Code(s): M65.30 - Trigger finger, unspecified finger Plan: Referred to OT has been doing OT with little improvement, has received steroid injections in the past with mixed results, follow-up with hand surgeon (4) High risk medication use: Code(s): Z79.899 - Other intermodal customer service (current) drug therapy Category: Medical Plan: Patient has been on Rinvoq since 2022 without side effects Plan I spent 45 minutes reviewing patient's chart, evaluating patient, ordering diagnostic workup, counseling patient and documenting in the chart Orders: Orders Complete Blood Count Auto Diff 4 Months L40.50 - Arthropathic psoriasis, unspecified, Z79.899 - Other intermodal customer service (current) drug therapy Comprehensive Met. Panel 4 Months L40.50 - Arthropathic psoriasis, unspecified, Z79.899 - Other assisted (current) drug therapy C Reactive Protein 4 Months L40.50 - Arthropathic psoriasis, unspecified, Z79.899 - Other assisted (current) drug therapy Erythrocyte Sedimentation Rate 4 Months L40.50 - Arthropathic psoriasis, unspecified, Z79.899 - Other assisted (current) drug therapy Hepatitis A,B,C Profile 4 Months Z11.59 - Encounter for screening for other viral diseases T Spot TB 4 Months Z11.7 - Encounter for testing for latent tuberculosis infection Coding Level of Care Code Est Pt Level 4 (76610) Complex EM visit Add On G2211 Diagnoses Psoriatic arthritis L40.50 Primary osteoarthritis of both hands M19.041; M19.042 Osteoarthritis type: primary Trigger finger, unspecified finger, unspecified laterality M65.30 Trigger finger location: unspecified finger Laterality: unspecified laterality High risk medication use Z79.899
[2024-11-20 10:08] VITALS: BP 134/80; PULSE 68; O2SAT 97; BMI 34.8
--- OUTSIDE RECORDS SUMMARY | 2024-11-20 11:25 | XMS_ITS | Continuity of Care Document ---
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 Lab None record ed. Referral None record ed. Procedures None record ed. Surgeries None record ed. Imaging None record ed. Medication Orders None record ed. Patient TargetsNo targets recorded. Patient InstructionsNo instructions recorded. Reason for Referral None Reported. Problems Name Problem SNOMED Code Status Onset Date Resolution Date Notes Provider Name and Address Organization Details Recorded Time Secondary osteoarthri tis 347763769 Active 2019 SYLVIA Coffey [address] [facility], [address], [place], [address], [facility] 0 16:03:23 Chronic insomnia 345235920 Active 2019 SYLVIA Coffey [address] [facility], [address], [place], [address], [facility] [employer] 0 16:09:57 Allergic rhinitis 80875306 Active 2019 COLLIN CoffeyP [address], [address], [place], [address], [facility] 0 16:16:24 Acute adrenal insufficien cy 657536861 Active 2019 COLLIN CoffeyP [address], [address], [place], [address], [facility] 0 16:17:27 Osteoarthri tis of right hip joint 4294963840775 07 Active 2022 SYLVIA Mohamud [address], [address], [place], [address], [facility] 3 07:46:12 Psoriatic arthritis 834031744 Active 2022 SYLVIA Mohamud [address], [address], [place], [address], [facility] 3 08:25:10 Neuropathy 247135141 Active [address], [address], [place], [address], [facility] 3 10:59:44 Osteoarthri tis 067808299 Active 2023 [facility] [address], [place], [address], [facility] 4 10:37:30 Migraine 43001886 Active 2023 [facility]IANA [facility], [place], [address], [facility] 4 10:40:56 Neurogenic claudicatio n co-occurren t and due to spinal stenosis of lumbar region Active 2018 SYLVIA Mohamud [address], [address], [place], [address], [facility] 9 07:54:24 Essential hypertensio n 65191565 Active 2018 SYLVIA Mohamud [address], [address], [place], [address], [facility] 9 07:55:02 Chronic depression 431780891 Active 2018 Kenna CaroCOLLINP [address] [facility], [address], [place], [address], [facility] 9 07:55:29 Asthma without status asthmaticus 94585844 Active [address] [facility] [address] [facility], [address], [place], [address], [facility] 9 07:55:41 Gastroesoph ageal reflux disease without esophagitis 850842310 Active [address], [address], [place], [address], [facility] 9 07:56:42 Hypothyroid ism 68668043 Active 2018 MEHREEN LORD [address] [place] [address], [address], [place], [address], [facility] 9 08:50:40 Problem Notes None recorded. Procedures Surgical History Date Name Laterality Status Provider Name and Address Organization Details Recorded Time Cataract Surgery completed Evie Delarosaangélica tellez [facility] [address] [facility], [address], [place], [address], [facility] 09/06/2020 15:50:12 Arthrd ant ntrbd min dsc lum completed Evie Delarosayassinelucretia [address], [address], [place], [address], [facility] 09/06/2020 15:50:23 endoscopic excision of tissue of esophagus completed Evie Delarosamarylu [facility] [address] [facility], [address], [place], [address], [facility] [facility] 09/06/2020 15:51:00 Tonsillectomy completed Evie Delarosamarylu [address], [address], [place], [address], [facility] [place] [facility] 09/06/2020 15:51:10 Imaging Results None recorded. Procedure Notes None recorded. Medical Equipment None Reported. Allergies Allergen ID Allergen Name Allergen Category Reaction Reaction Severity Criticality Documentation Date Start Date Code Code System Note Provider Name and Address Organization Details Recorded Time [id number] 2824e fluticaso ne Not available Not available Not available Not available 07/14/2019 81385 RxNorm Not Available Not Available Not Available [id number] 2824e Non-stero idal anti-infl ammatory agent (product) medicatio n Not available Not available Not available 09/06/2020 59689 005 SNOMED Not Available Not Available Not Available [id number] 2824e amlodipin e medicatio n Not available Not available Not available 01/29/2023 25552 RxNorm Not Available Not Available Not Available Medications Name Sig Start Date Stop Date Status Note LastModified by Organization Details LastModified Time tramadol 50 mg tablet 1 po q 6 hrs prn mild pain and 2 po q 6 hrs prn moderate pain 023 active Not Available Not Available Not Avai lable Dilaudid 4 mg tablet Take 1 tablet every 3 hours by oral route as needed. 023 active Not Available Not Available Not Avai lable morphine 15 mg immediate release tablet 2 tabs PO q 4 hours PRN pain 024 active Not Available Not Available Not Avai lable Lyrica 50 mg capsule Take 1 capsule every day by oral route at noon. 023 active Not Available Not Available Not Avai lable Lyrica 150 mg capsule Take 1 capsule twice a day by oral route. 023 active Not Available Not Available Not Avai lable Lyrica 300 mg capsule Take 1 capsule twice a day by oral route. 024 active Not Available Not Available Not Avai lable Vitals None Recorded Social History Question Answer Notes LastModified by Organization Details LastModified Time Tobacco Smoking Status Former Smoker smoked 1981- Kate Kowalski MD [address] [facility], [address], [place], [address], [facility] [employer] 08/30/2024 16:08:14 Do You Have An Advance Directive? Yes Information not available 08/30/2024 What Is Your Level Of Alcohol Consumption? None [id number] Information not available 09/02/2020 How Much Tobacco Do You Chew? None [id number] Information not available 09/02/2020 What Is Your Code Status? Full Code Information not available 08/30/2024 Do You Or Have You Ever Used E-cigarettes Or Vape? Never Used Electronic Cigarettes [id number] Information not available 09/02/2020 Where Do You Live? SingleLevelHouse With Mother, 2 Brothers And Daughter Information not available 08/30/2024 Legal Guardian? No Informati on not available 08/30/2024 Do You Have A Medical Power Of Instrument [employer]? Yes Information not available 08/30/2024 What Was The Date Of Your Most Recent Tobacco Screening? 08/30/2024 Information not available 08/30/2024 Do You Have An Out Of Hospital DNR? No Information not available 08/30/2024 Do You Or Have You Ever Used Smokeless Tobacco? Never Used Smokeless Tobacco [id number] Information not available 09/02/2020 How Much Tobacco Do You Smoke? No [id number] Information not available 09/02/2020 Do You Use Any Illicit Or Recreational Drugs? No Information not available 08/30/2024 Has Tobacco Cessation Counseling Been Provided? No N/a As Pt No Longer Smokes Information not available 08/30/2024 How Many Years Have You Smoked Tobacco? 2 Information not available 02/21/2023 Do You Or Have You Ever Used Any Other Forms Of Tobacco Or Nicotine? No Information not available 02/21/2023 Sex: Unknown Functional Status None recorded. Mental Status None recorded. Family History Relationship Description Onset Age of this Age Resolved Age Notes LastModified by Organization Details LastModified Time Mother Hypertensive disorder glord Not available 2022 06:11:55 Mother Atrial fibrillation glord Not available 06:12:00 Father Diabetes mellitus glord Not available 2022 06:12:12 Father Cerebrovascu lar accident glord Not available 06:12:18 Father Malignant tumor of colon glord Not available 2022 06:12:27 Father Malignant tumor of lung glord Not available 2022 06:12:37 Maternal Grandmother Diabetes mellitus glord Not available 2022 06:12:48 Maternal Grandfather Diabetes mellitus glord Not available 2022 06:13:01 Paternal Grandfather Diabetes mellitus glord Not available 2022 06:13:15 Paternal Grandfather Chronic obstructive pulmonary disease glord Not available 2022 06:13:31 Daughter Disorder of respiratory system glord Not available 2022 06:14:05 Notes:N/C Medical History No medical history recorded. Gynecological HistoryNo gynecological history recorded. Obstetrics History GPAL:G 0 P 0 0 0 0 Immunizations Vaccine Type Date Status Note Provider Nam e and Address Organization Details Recorded Time COVID-19, mRNA, LNP-S, PF, 30 mcg/0.3 mL dose 1 completed [facility] 08/19/2022 14:27:14 COVID-19, mRNA, LNP-S, PF, 30 mcg/0.3 mL dose 1 completed [facility] 08/19/2022 14:27:23 COVID-19, mRNA, LNP-S, PF, 30 mcg/0.3 mL dose 1 completed [facility] 08/19/2022 14:27:33 COVID-19, mRNA, LNP-S, PF, 30 mcg/0.3 mL dose 2 completed [facility] 08/19/2022 14:27:41 COVID-19, mRNA, LNP-S, PF, 30 mcg/0.3 mL dose 2 completed [facility] 08/19/2022 14:27:49 influenza, unspecified formulation 2 completed [facility] 01/31/2023 14:35:01 influenza, unspecified formulation 1 completed Chula [facility] 01/31/2023 14:35:10 Pneumococcal conjugate PCV 13 9 completed Chula [facility] 01/31/2023 14:35:37 pneumococcal polysaccharide PPV23 2 completed Chula Espino[facility] 01/31/2023 14:35:58 Td(adult) unspecified formulation 3 completed Chula [facility] 01/31/2023 14:36:12 Tdap 0 completed hCula Espinoza [facility] 01/31/2023 14:36:25 Tdap 2 completed Chula [facility] 01/31/2023 14:36:35 zoster recombinant 1 completed Chula [facility] 01/31/2023 14:36:54 zoster recombinant 1 completed Chula [facility] 01/31/2023 14:37:02 zoster recombinant 1 completed Chula [facility]ino[facility] 01/31/2023 14:37:10 influenza, unspecified formulation 3 completed Chula [facility] 01/12/2024 15:11:43 SARS-COV-2 (COVID-19) vaccine, UNSPECIFIED [address] [facility] 01/12/2024 15:12:14 SARS-COV-2 (COVID-19) vaccine, UNSPECIFIED 3 completed Chula [facility] 01/12/2024 15:12:32 Past Encounters Encounter ID Performer Location Encounter Start Date Encounter Closed Date Diagnosis/Indication Diagnosis SNOMED-CT Code Diagnosis ICD10 Code Diagnosis Note [id number] MEHREEN [place]TON [address] [place] [address] 08/24/2024 10:30:49 08/27/2024 14:14:36 Osteoarthritis 294411268 M19.90 s/p left TKRWBAT, PT/OT eval and treatmonit or pain controllea ve surgical dressing in place until follow upcontinue tramadol 50 mg q 6 hours PRNmorphin e 15 mg q 4 hours PRN Neuropathy 691210290 G62 .9 lyrica 300 mg BIDtramado l prnmorphin e prn Asthma wit hout status asthmaticus 32506831 J45.20 stablepro air 2 puffs q 4 hr prnxyzal 5 mg qd Essential hypertension 71384145 I10 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 Gastroesop hageal reflux disease without esophagitis 225815944 K21.9 protonix 40 mg qdmonitor for reflux Hypothyroidism 70611213 E01.8 levothyrox ine 44 mcg qd on otweiy77 mcg M-Sttsh prn Chronic depression 51613 0009 F34.1 mood stable Psoriatic arthritis 1563 16946 L40.50 otezla 30 mgxeljanz xr 11 mg qdpredniso ne 3 mg qdf/u rheumatolo gist as out pt Migraine 76925576 G43.90 9 sumatripta n prnmonitor for headaches [id number] MEHREEN LORD BRANDON WALTON [address] [place] [address] 08/27/2024 10:10:14 08/29/2024 08:57:06 Osteoarthritis 091032135 M19.90 s/p left TKRcontinu e WBAT, with PTensure pain meds are given on timeleave surgical dressing in place until follow upcontinue tramadol 50 mg q 6 hours PRNmorphin e 15 mg q 4 hours PRN [id number] MD BRANDON Resendiz [address] [place] [address] 08/30/2024 15:29:34 09/04/2024 08:47:54 Osteoarthritis 676283074 M15.0 Z96.652 s/p left TKRContinu e tramadol 50-100 mg q 6 hrs prn, MSIR 15 mg q 4 hrs prn, and APAP 650 mg q 6 hrs scheduled. Continue ASA 325 mg BID for DVT prophylaxi s.Continue PT/OT for strengthen ing, balance, gait training, safety and function.C ontinue fall precaution s.Monitor for safety.F/U with ortho as planned. Neuropathy 298779341 G62 .89 Continue meds as above and lyrica 300 mg BIDMonitor sxs. Asthma wit hout status asthmaticus 62221245 J45.20 At baseline.C ontinue levocetiri zine 5 mg qd, azelastine nasal spray 2 sprays each nostril qd prn, and albuterol MDI or nebs q 4 hr prn.Monito r resp status. Essential hypertension 04377459 I10 High since here, but also with uncontroll ed pain.On no meds for this.No changes at this time.Monit or BP and labs. Gastroesop hageal reflux disease without esophagitis 492974971 K21.9 No current sxs.Contin ue pantoprazo le 40 mg qdMonitor GI sxs. Hypothyroidism 00089131 E01.8 TSH WNL on 08/24/24.C ontinue levothyrox ine 44 mcg qd on sundays and 88 mcg qd all other days.Monit or TSH as outpt. Chronic depression 49953 0009 F34.1 Mood good today.On no meds currentlyM onitor mood.Consu lt psych prn Psoriatic arthritis 1563 76425 L40.52 Continue otezla 30 mg BID, Rinvoq 15 mg qd, prednisone 3 mg qd and pain meds as above.F/U with rheum as planned. Migraine 32771924 G43.80 9 Continue sumatripta n 50 mg qd prnMonitor sxs Bradycardia 71914348 R00 .1 With continued intermitte nt bradycardi a.Asymptom atic.Will f/u with cardio as outpt. [id number] MEHREEN WALTON [address] [place] [address] 09/04/2024 13:23:36 09/05/2024 12:31:10 Osteoarthritis 949324336 M15.0 Z96.652 s/p left TKRContinu e tramadol 50-100 mg q 6 hrs prn, MSIR 15 mg q 4 hrs prn, and APAP 650 mg q 6 hrs scheduled. - would not increase, pain is likely due to edema which is acuteConti nue ASA 325 mg BID for DVT prophylaxi s.Continue PT/OT for strengthen ing, balance, gait training, safety and function.C ontinue fall precaution s.Monitor for safety.F/U with ortho as planned. Edema of l ower extremity 348751721 R60.0 obtain US to rule out DVT of LLElikely just post op swelling Health Concerns Section Related Observation LastModified by Organization Detai ls LastModified Time None Recorded Concern Status LastModified by Organization Details LastModified Time None Recorded Payers Encounter Date Sequence Insurance Name Policy Number Policy Saez Covered Member ID Saez Member ID Guarantor Name 09/04/2024 1 [place] [employer] Marisol Howard [id number] Marisol Howard 09/04/2024 2 [place] [facility] [id number] Marisol Howard Notes Date Note Type Note Provider Name and Address Organization Details Recorded Time 09/04/2024 text/html This is a complicated 59 yo woman who is here for rehab after an elective LTKR for ESOA/psoriatic arthritis unresponsive to conservative tx. Since here she has been working with rehab. Progress has been limited by pain. She was also noted to have increased LLE swelling yest which got better overnight but now she feels its worse. On eval leg very edematous and tight with increased pain. Likely just post op swelling and now with increased PT getting worse but will order US to rule out DVT. Her PMH includes HTN, bradycardia, psoriatic arthritis, OA, asthma, hypothyroidism, depression/anxiety, adrenal insufficiency, migraines, lumbar radiculopathy s/p surgery in 2019, DENISE not on CPAP, s/p bilateral THRs, s/p left TKR, and insomnia. MEHREEN HI [address] [place] [address], [address], [place], [address], [facility] [employer] 09/04/2024 13:27:08 OBGyn Episode No OBEpisode recorded.
--- OUTSIDE RECORDS SUMMARY | 2024-11-20 11:25 | XMS_ITS | Continuity of Care Document ---
Author Organization [facility], BRANDON WALTON Address [address] [place] [phone] Care Team Providers Care Phone Manager Name Role Phone BRANDON WALTON ([place]) OTHER CALVIN MOREAU Primary Care Provider Assessment Encounter Date Assessment Date Assessment LastModified by Organization Details LastModified Time 09/10/2024 09/10/202408/24: wbc 3.52, hgb 9.6, hct 29.4, na 140, k 4.6, bun 13, creat 0.80 08/27/24-WBC- 4.12, H/H-9.8/31, plts-198, BUN/Cr-10/0.8 , GFR-84, Na+141, K+4.0, glu-104, alb-3.3 glord Not available 09/10/2024 09:16:46 Plan of Treatment Reminders Order Date Submit [...] Organization Details Recorded Time Secondary osteoarthri tis 147139376 Active 2019 SYLVIA Coffey [address] [facility], [address], [place], [address], [facility] [employer] 0 16:03:23 Chronic insomnia 966326790 Active 2019 SYLVIA Coffey [address] [facility], [address], [place], [address], [facility] [employer] 0 16:09:57 Allergic rhinitis 89431091 Active 2019 COLLIN CoffeyP [address], [address], [place], [address], [facility] 0 16:16:24 Acute adrenal insufficien cy 481834575 Active 2019 COLLIN CoffeyP [address], [address], [place], [address], [facility] 0 16:17:27 Osteoarthri tis of right hip joint 7128010079297 07 Active 2022 SYLVIA Mohamud [address], [address], [place], [address], [facility] 3 07:46:12 Psoriatic arthritis 906275831 Active 2022 SYLVIA Mohamud [address], [address], [place], [address], [facility] 3 08:25:10 Neuropathy 273985310 Active [address], [address], [place], [address], [facility] 3 10:59:44 Osteoarthri tis 571431256 Active 2023 [facility], [place], [address], [facility] 4 10:37:30 Migraine 36031783 Active 2023 [facility], [place], [address], [facility] 4 10:40:56 Neurogenic claudicatio n co-occurren t and due to spinal stenosis of lumbar region Active 2018 SYLVIA Mohamud [address], [address], [place], [address], [facility] 9 07:54:24 Essential hypertensio n 93036089 Active 2018 SYLVIA Mohamud [address], [address], [place], [address], [facility] 9 07:55:02 Chronic depression 164132260 Active 2018 Kenna CaroCOLLINP [address] [facility], [address], [place], [address], [facility] 9 07:55:29 Asthma without status asthmaticus 35849214 Active 2018 Kennasera Caro [facility] [address] [facility], [address], [place], [address], [facility] 9 07:55:41 Gastroesoph ageal reflux disease without esophagitis 929661024 Active [address], [address], [place], [address], [facility] 9 07:56:42 Hypothyroid ism 01357388 Active 2018 MEHREEN LORD [address] [place] [address], [address], [place], [address], [facility] [employer] [facility] 9 08:50:40 Problem Notes None recorded. Procedures Surgical History Date Name Laterality Status Provider Name and Address Organization Details Recorded Time Cataract Surgery completed Evie Delarosaangélica tellez [facility] [address] [facility], [address], [place], [address], [facility] 09/06/2020 15:50:12 Arthrd ant ntrbd min dsc lum completed Evie Delarosayassinelucretia [address], [address], [place], [address], [facility] [employer] [facility] 09/06/2020 15:50:23 endoscopic excision of tissue of esophagus completed Evie Delarosamarylu [facility] [address] [facility], [address], [place], [address], [facility] [employer] [facility] 09/06/2020 15:51:00 Tonsillectomy completed Evie Delarosamarylu [address], [address], [place], [address], [facility] [employer] [facility] 09/06/2020 15:51:10 Imaging Results None recorded. Procedure Notes None recorded. Medical Equipment None Reported. Allergies Allergen ID Allergen Name Allergen Category Reaction Reaction Severity Criticality Documentation Date Start Date Code Code System Note Provider Name and Address Organization Details Recorded Time [id number] 2824e fluticaso ne Not available Not available Not available Not available 07/14/2019 62212 RxNorm Not Available Not Available Not Available [id number] 5300469y2 2824e Non-stero idal anti-infl ammatory agent (product) medicatio n Not available Not available Not available 09/06/2020 09131 005 SNOMED Not Available Not Available Not Available [id number] [id number] 3048602i4 2824e amlodipin e medicatio n Not available Not available Not available 01/29/2023 88311 RxNorm Not Available Not Available Not Available [...] Available Not Available Not Avai lable Vitals Date Recorded Body height Body mass index (BMI) Body weight Provider Name and Address Organization Details Last Updated DateTime 09/10/2024 165.1 cm 35.9 kg/m2 11148.95 g MEHREEN HI [address] [facility] [address], [place], [address], [place] [employer] 09/10/2024 09:32:22 Social History Question Answer Notes LastModified by Organization Details LastModified Time Tobacco Smoking Status Former Smoker smoked 1981- Kate Kowalski MD [address] [facility] [address], [place], [address], [facility] - [facility] 08/30/2024 16:08:14 Do You Have An Advance Directive? Yes Information not available 08/30/2024 What Is Your Level Of Alcohol Consumption? None [id number] Information not available 09/02/2020 How Much Tobacco Do You Chew? None [id number] Information not available 09/02/2020 What Is Your Code Status? Full Code Information not available 08/30/2024 Do You Or Have You Ever Used E-cigarettes Or Vape? Never Used Electronic Cigarettes [id number] Information not available 09/02/2020 Where Do You Live? SingleLevelHouse With Mother, 2 Brothers And Daughter Information not available 08/30/2024 Legal Guardian? 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 08/30/2024 Information not available 08/30/2024 Do You Have An Out Of Hospital DNR? No Information not available 08/30/2024 Do You Or Have You Ever Used Smokeless Tobacco? Never Used Smokeless Tobacco [id number] Information not available 09/02/2020 How Much Tobacco Do You Smoke? No [id number] Information not available 09/02/2020 Do You Use [...] mcg/0.3 mL dose 1 completed Chula King [facility] 08/19/2022 14:27:14 COVID-19, mRNA, LNP-S, PF, 30 mcg/0.3 mL dose 1 completed Chula King [facility] 08/19/2022 14:27:23 COVID-19, mRNA, LNP-S, PF, 30 mcg/0.3 mL dose 1 [facility] 14:27:33 COVID-19, mRNA, LNP-S, PF, 30 mcg/0.3 mL dose 2 completed Chula Alexis [facility] 08/19/2022 14:27:41 COVID-19, mRNA, LNP-S, PF, 30 mcg/0.3 mL dose 2 completed Chula Alexis [facility] 08/19/2022 14:27:49 influenza, unspecified formulation 2 completed Chula King [facility] 01/31/2023 14:35:01 influenza, unspecified formulation 1 completed Chula Espinoza null, [facility] 01/31/2023 14:35:10 Pneumococcal conjugate PCV [address] [facility], [facility] 01/31/2023 14:35:37 pneumococcal polysaccharide PPV23 [address] [facility], [facility] 01/31/2023 14:35:58 Td(adult) unspecified formulation 3 completed Chula Espinoza null, [facility] 01/31/2023 14:36:12 Tdap 0 completed Chula Espinoza [facility] 01/31/2023 14:36:25 Tdap 2 completed Chula Espinoza [facility] 01/31/2023 14:36:35 zoster recombinant [address] [facility], [facility] 01/31/2023 14:36:54 zoster recombinant 1 completed Chula Espinoza [facility] 01/31/2023 14:37:02 zoster recombinant 1 completed Chula Espinoza null, [facility] 01/31/2023 14:37:10 influenza, unspecified formulation 3 completed Chula Espinoza [facility] 01/12/2024 15:11:43 SARS-COV-2 (COVID-19) vaccine, UNSPECIFIED [address] [facility], [facility] 01/12/2024 15:12:14 SARS-COV-2 (COVID-19) vaccine, UNSPECIFIED 3 completed Chula Espinoza [facility] 01/12/2024 15:12:32 Past Encounters Encounter ID Performer Location Encounter Start Date Encounter Closed Date Diagnosis/Indication Diagnosis SNOMED-CT Code Diagnosis ICD10 Code Diagnosis Note [id number] MEHREEN WALTON [address] [place] [address] 08/24/2024 10:30:49 08/27/2024 14:14:36 Osteoarthritis 379988077 M19.90 s/p left TKRWBAT, PT/OT eval and treatmonit or pain controllea ve surgical dressing in place until follow upcontinue tramadol 50 mg q 6 hours PRNmorphin e 15 mg q 4 hours PRN Neuropathy 229492074 G62 .9 lyrica 300 mg BIDtramado l prnmorphin e prn Asthma wit hout status asthmaticus 92125037 J45.20 stablepro air 2 puffs q 4 hr prnxyzal 5 mg qd Essential hypertension 05490899 I10 used to be ok lasixmonit or carrier blower Gastroesop hageal reflux disease without esophagitis 460432521 K21.9 protonix 40 mg qdmonitor for reflux Hypothyroidism 15444806 E01.8 levothyrox ine 44 mcg qd on mcg M-Sttsh prn Chronic depression 57116 0009 F34.1 mood stable Psoriatic arthritis 1563 90227 L40.50 otezla 30 mgxeljanz xr 11 mg qdpredniso ne 3 mg qdf/u rheumatolo gist as out pt Migraine 15795894 G43.90 9 sumatripta n prnmonitor for headaches [id number] MEHREEN LORD BRANDON WALTON [address] [place] [address] 08/27/2024 10:10:14 08/29/2024 08:57:06 Osteoarthritis 898081037 M19.90 s/p left TKRcontinu e WBAT, with PTensure pain meds are given on timeleave surgical dressing in place until follow upcontinue tramadol 50 mg q 6 hours PRNmorphin e 15 mg q 4 hours PRN [id number] MD BRANDON Resendiz [address] [place] [address] 08/30/2024 15:29:34 09/04/2024 08:47:54 Osteoarthritis 386911240 M15.0 Z96.652 s/p left TKRContinu e tramadol 50-100 mg q 6 hrs prn, MSIR 15 mg q 4 hrs prn, and APAP 650 mg q 6 hrs scheduled. Continue ASA 325 mg BID for DVT prophylaxi s.Continue PT/OT for strengthen ing, balance, gait training, safety and function.C ontinue fall precaution s.Monitor for safety.F/U with ortho as planned. Neuropathy 787500538 G62 .89 Continue meds as above and lyrica 300 mg BIDMonitor sxs. Asthma wit hout status asthmaticus 84235527 J45.20 At baseline.C ontinue levocetiri zine 5 mg qd, azelastine nasal spray 2 sprays each nostril qd prn, and albuterol MDI or nebs q 4 hr prn.Monito r resp status. Essential hypertension 38253356 I10 High since here, but also with uncontroll ed pain.On no meds for this.No changes at this time.Monit or BP and labs. Gastroesop hageal reflux disease without esophagitis 513580903 K21.9 No current sxs.Contin ue pantoprazo le 40 mg qdMonitor GI sxs. Hypothyroidism 38877964 E01.8 TSH WNL on 08/24/24.C ontinue levothyrox ine 44 mcg qd on sundays and 88 mcg qd all other days.Monit or TSH as outpt. Chronic depression 31349 0009 F34.1 Mood good today.On no meds currentlyM onitor mood.Consu lt psych prn Psoriatic arthritis 1563 71832 L40.52 Continue otezla 30 mg BID, Rinvoq 15 mg qd, prednisone 3 mg qd and pain meds as above.F/U with rheum as planned. Migraine 21113808 G43.80 9 Continue sumatripta n 50 mg qd prnMonitor sxs Bradycardia 30367018 R00 .1 With continued intermitte nt bradycardi a.Asymptom atic.Will f/u with cardio as outpt. [id number] MEHREEN WALTON [address] [place] [address] 09/04/2024 13:23:36 09/05/2024 12:31:10 Osteoarthritis 126618085 M15.0 Z96.652 s/p left TKRContinu e tramadol [...] as planned. Edema of l ower extremity 903647840 R60.0 obtain US to rule out DVT of LLElikely just post op swelling [id number] MEHREEN WALTON [address] [place] [place] [address] 09/06/2024 10:10:36 09/07/2024 11:21:33 Edema of lower extremity 684658955 R60.0 negative for DVTelevate as much as possibleco ntinue PTconsider LAURY [id number] MEHREEN WALTON [address] [place], [place] [address] 09/10/2024 09:13:16 09/11/2024 14:15:34 Edema of lower extremity 862150522 R60.0 stablecont inue to monitor Osteoarthritis 211645276 M15.0 Z96.652 s/p left TKRdecreas e tramadol to 50 mg q 6 hours PRNcontinu e morphine as scheduledC ontinue ASA 325 mg BID for DVT prophylaxi s.now WBAT, do not soak incisionCo ntinue fall precaution s.Monitor for safety. Health Concerns Section Related Observation LastModified by Organization Detai ls LastModified Time None Recorded Concern Status LastModified by Organization Details LastModified Time None Recorded Payers Encounter Date Sequence Insurance Name Policy Number Policy Saez Covered Member ID Saez Member ID Guarantor Name 09/10/2024 1 [place] [employer] Marisol Howard [id number] Marisol Howard 09/10/2024 2 [place] [facility] Marisol Howard [id number] Marisol Howard Notes Date Note Type Note Provider Name and Address Organization Details Recorded Time 09/10/2024 text/html This is a complicated 59 yo woman who is here for rehab after an elective LTKR for ESOA/psoriatic arthritis unresponsive to conservative tx. Patient went out to ortho on 09/07. SHe was made WBAT with no restrictions. She is to continue to elevate legs as much as possible and continue PT. Her bandage was removed with no issue and steri strips put into place. She told them she is having increased pain, they recommended morphine q 3 hours PRN if needed. Her PMH includes HTN, bradycardia, psoriatic arthritis, OA, asthma, hypothyroidism, depression/anxiety, adrenal insufficiency, migraines, lumbar radiculopathy s/p surgery in 2019, DENISE not on CPAP, s/p bilateral THRs, s/p left TKR, and insomnia. MEHREEN HI [address] [place] [address], [address], [place], [address], [facility] [employer] 09/10/2024 09:32:48 OBGyn Episode No OBEpisode recorded.
== END 2024-11-20 10:42 | disposition home or self-care (01) ==
PROVIDERS: PCP Nurse Practitioner Family; Visit Provider Student in an Organized Health Care Education/Training Program
DX: L40.50 Arthropathic psoriasis, unspecified (principal); M19.041 Primary osteoarthritis, right hand; M19.042 Primary osteoarthritis, left hand; M65.30 Trigger finger, unspecified finger; Z79.899 Other long term (current) drug therapy
CPT/HCPCS: 99214; G2211

== ENCOUNTER → 2024-11-20 10:02 | Outpatient (BNVA) | payer MEDICARE, MEDICAID, SELFPAY | PROVIDERS: PCP Nurse Practitioner Family; Visit Provider Student in an Organized Health Care Education/Training Program | DX: L40.50 Arthropathic psoriasis, unspecified (principal); M19.041 Primary osteoarthritis, right hand; M19.042 Primary osteoarthritis, left hand; M65.30 Trigger finger, unspecified finger; Z79.899 Other long term (current) drug therapy | CPT/HCPCS: 99212 ==

== ENCOUNTER 2024-11-28 12:35 | Outpatient (RCR) | payer MEDICARE, MEDICAID, SELFPAY ==
--- NOTE | 2024-10-19 15:22 | MHC.OT.EP ---
[address] [phone] Occupational Therapy Plan of Care Patient Name: Marisol Howard Date of Evaluation: 10/19/24 Diagnosis: Bilateral osteoarthritis and trigger fingers Pain Location: bilateral hand achiness/throbbing and stabbing pain in IPj Pain Score: 5 Pain Scale Used: Numeric (0 - 10) Aggravating Factors: Cold weather, lifting anything even a full coffee cups Alleviating Factors: Heat/hot water Assessment: 59 y/o (F) presents with decreased overall function and pain in the bilateral hands. Patient has visible grade 2 triggers of the (L), RF SF (R) IF, and MF. Patient does report a grade 3 level trigger in those fingers as well where she is unable to straighten them on their own and she needs to pull them into extension. Patient has Heberden's nodes and Denise's nodes present on bilateral hands. It is noted patient has a small mobile nodule on the DORSAL PIP of her (R) IF that causes her pain that the doctor is aware of. Patient will benefit from skilled OT services to implement splinting and education on the trigger fingers, and educate on self management strategies for her arthritis to decrease her overall pain and improve function. Frequency and Duration: The patient will be seen 2x week for 4 weeks Short Term Goals: Patient will be compliant w/ oval 8 wear and care schedule Patient will be IND and compliant with HEP Patient will be IND w/the implementation of JPT Occupational Nurse Goals: Patient will complete a full composite fist with no report of pain Patient will report 2/10 pain during work related tasks Patient will be IND w/ JPT during work related tasks Treatment Plan: Therapeutic Exercise Therapeutic Activity Home Exercise Program Splinting Patient Education Edema Control ADL Training Ultrasound NMES Iontophoresis Paraffin Fluidotherapy MHP Cold Packs Joint Mobilization Soft Tissue Mobilization Kinesiotaping Skilled OT and treat Electronically Signed By: Mary Kay Gross OT/s; GASPER VEGA OTR/Angie Please Sign and return to therapist. Thank you once again for your referral.
--- NOTE | 2024-11-28 14:37 | MHC.OT.DC ---
[address] [phone] F: [phone] Occupational Therapy Discharge Note Patient Name: Marisol Howard Provider: Gelacio Callahan Diagnosis: Bilateral osteoarthritis and trigger fingers Date of Evaluation: 10/19/24 Date of Discharge: 11/28/24 Treatments to Date: 7 Discharge Status: Achieved Goals Independent with HEP Recommend MD Follow-up Discharge Summary: MS HOWARD IS IND WITH HEP WITH FREQUENT EDUCATION PROVIDED ON USE OF OVAL 8s; SELF MANAGEMENT OF OA AND TRIGGER FINGER. READY FOR D/C TO HOME BASED PROGRAM. WILL SEE DR CHAPMAN TOMORROW 11/29/24 TO FURTHER DISCUSS ONGOING HAND PAIN. Electronically Signed By: KUSHAL BENJAMIN/Angie Reviewed/agree with student documentation: N/A Therapist: Please Sign and return to therapist, thank you for your referral.
== END 2024-11-28 14:35 | disposition home or self-care (01) ==
LOC: HO.OT 12:35
PROVIDERS: PCP Nurse Practitioner Family; Visit Provider Student in an Organized Health Care Education/Training Program
DX: M19.041 Primary osteoarthritis, right hand (principal); M19.042 Primary osteoarthritis, left hand; M65.30 Trigger finger, unspecified finger
CPT/HCPCS: 97018; 97035; 97110; 97140; 97165; 97760

== ENCOUNTER 2025-03-22 10:19 | Outpatient (REF) | payer MEDICARE, MEDICAID, SELFPAY ==
[2025-03-22 10:35] LABS: MANUAL DIFF FLAG NO
--- OUTSIDE RECORDS SUMMARY | 2025-03-22 10:39 | XMS_ITS | Data Portability ---
Author Organization [facility], [facility] Address [address] [place] [address] Care Team Providers Care Stuffer Name Role Phone CALVIN MOREAU Referring Provider CALVIN MOREAU Primary Care Provider Assessment Encounter Date Assessment Date Assessment LastModified by Organization Details LastModified Time 02/08/2025 02/08/2025 I am seeing the patient today under the supervision of Dr. Palencia who was available but who did not see the patient. HPI: Patient is a 59-year-old female presenting today for evaluation of left knee pain is approximately 6 months status post left total knee arthroplasty performed by Dr. Johnson. She has had a few falls over the past 2 months which have led to increased approximately 2 weeks ago and recommended hinged knee brace as well as topical anti-inflammator y. Feeling more pain in the back of the knee with more pain in trying to actively flex her knee. Infection labs were ordered prior to the visit and reveal an ESR of 4, CRP of less than 0.1 mg/dL, and a WBC of 3.3 . Concern for infection is low at this time. PMH/PSH/MEDS/ALL /FMH/SOC HX/ROS all reviewed in detail per my medical intake sheet. ROS: the patient denies fevers or chills Exam: Vitals signs as noted. Alert and oriented x3. Appears well and in no acute distress. Extremities: Incision is well-healed. Calves are soft and nontender. No evidence of DVT. No lower extremity edema. Neurovascular status at baseline. Left knee: Tenderness to palpation about the distal hamstrings and pes anserine bursa. Patient has pain with isometric flexion of her knee. Range of motion is 0-120. Ligaments are stable to varus and valgus stresses. No significant effusion. Quad strength is 5/5. X-rays were ordered, obtained and reviewed NEOS. 3 views of the left knee demonstrate a total joint arthroplasty with good interfaces and alignment. No evidence of any lysis or loosening. No acute fractures appreciated. No change with previous radiographs. Assessment: The patient is approximately 6 months s/p TKA. Distal Hamstring tendinitis, left knee Plan: I explained the nature of the diagnosis with the patient and its treatment options both conservative and surgical. Conservative measures were discussed at length including but not limited to physical therapy, bracing, anti-inflammator ies. Would like her to continue to use Voltaren gel for the knee. We also discussed the role of physical therapy and I offered to provide a prescription for this today, the patient declined and a home exercise program was given instead. Will follow up as scheduled for further evaluation. The patient understands and agrees with the plan. They know to call if they have any further questions or concerns regarding their symptoms, or to follow up sooner if needed. [email or web address] Not available 02/08/2025 12:12:08 Plan of Treatment Reminders Order Date Submit Date Provider Last Modified By Organization Details Last Modified Time Details Appointments NEW PATIENT 15 2024 02:30P Yan Torre PA-C Not available Not available Not available MUST SEE 15 2024 08:15A M Sary Leal MD Not available Not available Not available Lab None recorded . Referral None recorded . Procedures None recorded . Surgeries None recorded . Imaging XR, knee, 3 view - rm 102 3V left knee pain S/P LTKR 4 MO 2024 025 [email or web address] [facility] Office, [address], [address], [place], [address], 02/08/2025 09:28:58 XR, foot, 3 or more view - 111 left foot 3v 2024 025 [email or web address] [employer] [employer] Office, [address], [address], [place], [address], 01/11/2025 08:51:57 Medication Orders None recorded . Patient TargetsNo targets recorded. Patient Instructions Encounter Date Encounter Id Patient Instructions Last Modified By Organization Details Last Modified Time 02/08/2025 [id number] hamstring strain : rehab exercises [email or web address] Not available 02/08/2025 09:35:15 Reason for Referral None Reported. Results Created Date Observation Date Name Description Value Unit Range Abnormal Flag Note LastModifiedBy Organization Detail LastModifiedTime 02/07/2002/07/2025 CBC WITH DIFFE RENTI AL/PL ATELE T WBC 3.3 x10e3 /uL 3.4-10 .8 below low normal Not Available [facility] ([facility]) [address] [place], [address], 02/07/2025 08:07:40 02/07/20 25 02/07/2025 CBC WITH DIFFE RENTI AL/PL ATELE T RBC 3.77 x10e6 /uL 3.77-5 .28 normal Not Available [facility] ([facility]) [address] [place], [address], 02/07/2025 08:07:40 02/07/20 25 02/07/2025 CBC WITH DIFFE RENTI AL/PL ATELE T hemoglobin 11.6 g/dL 11.1-1 5.9 normal Not Available [facility] ([facility]) [address] [place], [address], 02/07/2025 08:07:40 02/07/20 25 02/07/2025 CBC WITH DIFFE RENTI AL/PL ATELE T hematocrit 37.9 % 34.0-4 6.6 normal Not Available [facility] ([facility]) [address] [place], [address], 02/07/2025 08:07:40 02/07/20 25 02/07/2025 CBC WITH DIFFE RENTI AL/PL ATELE T MCV 101 fL 79-97 above high normal Not Available [facility] ([facility]) [address] [place], [address], 02/07/2025 08:07:40 02/07/20 25 02/07/2025 CBC WITH DIFFE RENTI AL/PL ATELE T MCH 30.8 pg 26.6-3 3.0 normal Not Available [facility] ([facility]) [address] [place], [address], 02/07/2025 08:07:40 02/07/20 25 02/07/2025 CBC WITH DIFFE RENTI AL/PL ATELE T MCHC 30.6 g/dL 31.5-3 5.7 below low normal Not Available [facility] ([facility]) [address] [place], [address], 02/07/2025 08:07:40 02/07/20 25 02/07/2025 CBC WITH DIFFE RENTI AL/PL ATELE T RDW 15.0 % 11.7-1 5.4 Not Available [facility] ([facility]) [address] [place], [address], 02/07/2025 08:07:40 02/07/20 25 02/07/2025 CBC WITH DIFFE RENTI AL/PL ATELE T platelets 225 x10e3 /uL 150-45 0 normal Not Available [facility] ([facility]) [address] [place], [address], 02/07/2025 08:07:40 02/07/20 25 02/07/2025 CBC WITH DIFFE RENTI AL/PL ATELE T neutrophils 59 % not estab. normal Not Available [facility] ([facility]) [address] [place], [address], 02/07/2025 08:07:40 02/07/20 25 02/07/2025 CBC WITH DIFFE RENTI AL/PL ATELE T lymphs 30 % not estab. normal Not Available [facility] ([facility]) [address] [place], [address], 02/07/2025 08:07:40 02/07/20 25 02/07/2025 CBC WITH DIFFE RENTI AL/PL ATELE T monocytes 11 % not estab. normal Not Available [facility] ([facility]) [address] [facility], [place], [address], 02/07/2025 08:07:40 02/07/20 25 02/07/2025 CBC WITH DIFFE RENTI AL/PL ATELE T eos 0 % not estab. normal Not Available [facility] ([facility]) [address] [facility], [place], [address], 02/07/2025 08:07:40 02/07/20 25 02/07/2025 CBC WITH DIFFE RENTI AL/PL ATELE T basos 0 % not estab. normal Not Available [facility] ([facility]) [address] [place], [address], 02/07/2025 08:07:40 02/07/20 25 02/07/2025 CBC WITH DIFFE RENTI AL/PL ATELE T immature cells THREAD SEPARATOR Not Available [facility] ([facility]) [address] [place], [address], 02/07/2025 08:07:40 02/07/20 25 02/07/2025 CBC WITH DIFFE RENTI AL/PL ATELE T neutrophils (absolute) 2.0 x10e3 /uL 1.4-7. 0 normal Not Available [facility] ([facility]) [address] [place], [address], 02/07/2025 08:07:40 02/07/20 25 02/07/2025 CBC WITH DIFFE RENTI AL/PL ATELE T lymphs (absolute) 1.0 x10e3 /uL 0.7-3. 1 normal Not Available [facility] ([facility]) [address] [place], [address], 02/07/2025 08:07:40 02/07/20 25 02/07/2025 CBC WITH DIFFE RENTI AL/PL ATELE T monocytes(ab solute) 0.4 x10e3 /uL 0.1-0. 9 normal Not Available [facility] ([facility]) [address] [facility], [place], [address], 02/07/2025 08:07:40 02/07/20 25 02/07/2025 CBC WITH DIFFE RENTI AL/PL ATELE T eos (absolute) 0.0 x10e3 /uL 0.0-0. 4 normal Not Available [facility] ([facility]) [address] [facility], [place], [address], 02/07/2025 08:07:40 02/07/20 25 02/07/2025 CBC WITH DIFFE RENTI AL/PL ATELE T baso (absolute) 0.0 x10e3 /uL 0.0-0. 2 normal Not Available [facility] ([facility]) [address] [facility], [place], [address], 02/07/2025 08:07:40 02/07/20 25 02/07/2025 CBC WITH DIFFE RENTI AL/PL ATELE T immature granulocytes 0 % not estab. Not Available [facility] ([facility]) [address] [facility], [place], [address], 02/07/2025 08:07:40 02/07/20 25 02/07/2025 CBC WITH DIFFE RENTI AL/PL ATELE T immature grans (abs) 0.0 x10e3 /uL 0.0-0. 1 Not Available [facility] ([facility]) [address] [place], [address], 02/07/2025 08:07:40 02/07/20 25 02/07/2025 CBC WITH DIFFE RENTI AL/PL ATELE T NRBC THREAD SEPARATOR Not Available [facility] ([facility]) [address] [place], [address], 02/07/2025 08:07:40 02/07/20 25 02/07/2025 CBC WITH DIFFE RENTI AL/PL ATELE T hematology comments: THREAD SEPARATOR Not Available [facility] ([facility]) [address] [facility], [place], [address], 02/07/2025 08:07:40 02/07/20 25 02/07/2025 SEDIM ENTAT ION RATE- WESTE RGREN sedimentatio n rate-westerg paul 4 mm/HR 0-40 normal Not Available [facility] ([facility]) [address] [facility], [place], [address], 02/07/2025 08:07:41 02/07/20 25 02/07/2025 C-DEISY CTIVE PROTE IN, QUANT C-reactive protein, quant <1 mg/L 0-10 Not Available [facility] ([facility]) [address] [facility], [place], [address], 02/07/2025 08:07:42 01/01/20 25 01/01/2025 XR, foot, 3 or more view http:/ [email or web address] ?Encry pted=s hAaTro YD8dLq bEUv6g %2BXZw aYqtaq 0bqfl% 2Fg9IQ a4ajBk vP9nXo QUaueC m3YtLR FvZlgJ JJ8mAn HZtai3 7o2263 AC0Kqb X6DV6W nKiQtr MwF INTERFACE [facility] [address], [place], [address], 01/01/2025 11:02:28 01/01/20 25 01/01/2025 XR, foot, 3 or more view [email or web address]:/ [email or web address] ?Encry pted=s hAaTro YD8dLq bEUv6g %2BXZw aYqtaq 0bqfl% 2Fg9IQ a4ajBk vP9nXo QUaueC m3YtLR FvZlgJ JJ8mAn HZtai3 7f5922 AC0Kqb X6DV6W nKiQtr MwF INTERFACE [facility] [address], [place], [address], 01/01/2025 11:02:30 01/25/20 25 01/24/2025 XR, knee, 3 view [email or web address]:/ [email or web address] ?Encry pted=s hAaTro YD8dLq bEUv6g %2BXZw aYqtaq 0bqfl% 2Fg9IQ a4ajBk vP9nXo QUaueC m3YtLR FvZlgJ JJ8mAn HZtai3 3l1160 AC0KqY nmDWaq nKiQtr MwF INTERFACE [facility] [address], [place], [address], 01/24/2025 09:04:45 01/25/20 25 01/24/2025 XR, knee, 3 view [email or web address]:/ [email or web address] ?Encry pted=s hAaTro YD8dLq bEUv6g %2BXZw aYqtaq 0bqfl% 2Fg9IQ a4ajBk vP9nXo QUaueC m3YtLR FvZlgJ JJ8mAn HZtai3 3n6471 AC0KqY nmDWaq nKiQtr MwF INTERFACE [facility] [address], [place], [address], 01/24/2025 09:04:47 Result Notes None recorded. Problems Name Problem SNOMED Code Status Onset Date Resolution Date Notes Provider Name and Address Organization Details Recorded Time Pain of left knee joint 5283256360849 07 Active 2023 DAFNE oh [place] - [facility] 09:45:55 Toe joint rigid 395250928 Active 2024 JINNY WALKER PA-C [address], [place], [address] , [facility] 5 11:28:35 Acquired hammer toes of bilateral feet 5814452373911 9104 Active 2024 JINNY WALKER PA-C [address], [place], [address] , [facility] 5 11:28:43 Cavovarus deformity of foot 466535381 Active 2024 JINNY WALKER PA-C [address], [place], [address] , [facility] 5 11:28:54 Left foot drop 7371342592751 05 Active 2024 JINNY WALKER PA-C [address], [place], [address] , [facility] 5 11:29:22 Pain of right knee joint 3410848361499 00 Active 2020 Status : 'A'; Not Available [facility] 4 11:14:20 Problem Notes None recorded. Procedures Surgical History Date Name Laterality Status Provider Name and Address Organization Details Recorded Time 4 12459: Therapeutic Activities (1:1) completed Kendy Calderon PTA [address], [place], [address], [facility] 10/22/2024 11:06:34 4 84138: Therapeutic Activities (1:1) completed Kendy Calderon PTA [address], [place], [address], [facility] 10/18/2024 09:32:52 4 29932 Therapeutic Exercise (1:1) completed Kendy Calderon PTA [address], [place], [address], [facility] 10/18/2024 09:32:48 4 85020: Therapeutic Activities (1:1) completed Christin Harrington, PT [address], [place], [address], [facility] 10/16/2024 06:59:40 4 25040 Therapeutic Exercise (1:1) completed Christin Harrington, PT [address], [place], [address], [facility] 10/16/2024 06:59:40 4 97026: Therapeutic Activities (1:1) completed Kendy Calderon [employer]ATIONS REPRESENTATIVE [address], [place], [address], [facility] 10/12/2024 14:42:39 4 59244 Therapeutic Exercise (1:1) completed Kendy Calderon G[employer]ATIONS REPRESENTATIVE [address], [place], [address], [facility] 10/12/2024 14:42:39 4 95894: Therapeutic Activities (1:1) completed Kendy Calderon [employer]UE[employer] RELATIONS REPRESENTATIVE [address], [place], [address], [facility] 10/09/2024 15:39:34 4 83585 Therapeutic Exercise (1:1) completed Kendy Calderon PTA [address], [place], [address], [facility] 10/09/2024 15:39:29 4 14472 Therapeutic Exercise (1:1) completed Kendy Calderon PTA [address], [place], [address], [facility] 10/03/2024 11:52:34 4 Hip Kenalog 1cc Injection, L/R completed Luis E Richard MD [address], [place], [address], [facility] 10/16/2024 06:55:44 4 21477 Therapeutic Exercise (1:1) completed Christin Harrington, PT [address], [place], [address], [facility] 09/27/2024 09:35:47 4 04871 Therapeutic Exercise (1:1) completed Kendy Calderon, GUE[employer] RELATIONS REPRESENTATIVE [address], [place], [address], [facility] 09/20/2024 10:14:29 4 54208 Therapeutic Exercise (1:1) completed Christin Harrington, PT [address], [place], [address], [facility] 09/19/2024 09:10:41 4 06679: Low complexity PT Eval completed Christin Harrington, PT [address], [place], [address], [facility] 09/19/2024 09:10:33 4 G8417 BMI Above Upper Parameters, F/U Documented completed Christin Harrintgon, PT [address], [place], [address], [facility] 09/19/2024 09:13:51 4 G8427 Current Medication Documented completed Christin Harrington, PT [address], [place], [address], [facility] 09/19/2024 09:13:55 4 95826 Therapeutic Exercise (1:1) cancelled Christin Harrington, PT [address], [place], [address], [facility] 08/29/2024 14:22:01 4 79029: Low complexity PT Eval cancelled Christin Harrington, PT [address], [place], [address], [facility] 08/29/2024 14:22:01 4 41265 Therapeutic Exercise (1:1) completed Christin Harrington, PT [address], [place], [address], [facility] 07/18/2024 07:03:18 4 77361: Low complexity PT Eval completed Christin Harrington, PT [address], [place], [address], [facility] 07/18/2024 07:04:23 4 G8417 BMI Above Upper Parameters, F/U Documented completed Christin Harrington, PT [address], [place], [address], [facility] 07/18/2024 07:08:16 4 G8427 Current Medication Documented completed Christin Harrington, PT [address], [place], [address], [facility] 07/18/2024 07:09:47 4 09678 Therapeutic Exercise (1:1) completed Christin Harrington, PT [address], [place], [address], [facility] 06/27/2024 08:12:26 4 58661 Therapeutic Exercise (1:1) completed Christin Harrington, PT [address], [place], [address], [facility] 06/12/2024 14:08:25 4 57337 Therapeutic Exercise (1:1) completed Kendy Calderon, GUE[employer] RELATIONS REPRESENTATIVE [address], [place], [address], [facility] 06/05/2024 14:27:56 4 87237 Therapeutic Exercise (1:1) completed Kendy Calderon, GUE[employer] RELATIONS REPRESENTATIVE [address], [place], [address], [facility] 06/01/2024 15:21:40 4 26225 Therapeutic Exercise (1:1) completed Kendy Calderon, GUEST RELATIONS REPRESENTATIVE [address], [place], [address], [facility] 05/24/2024 13:51:11 4 45285: Moderate complexity PT eval completed Christin Harrington, PT [address], [place], [address], [facility] 05/23/2024 19:18:19 4 G8417 BMI Above Upper Parameters, F/U Documented completed Christin Harrington, PT [address], [place], [address], [facility] 05/23/2024 19:33:24 4 G8427 Current Medication Documented completed Christin Harrington, PT [address], [place], [address], [facility] 05/23/2024 19:33:29 4 Hip Kenalog 1cc Injection, L/R completed Luis E Richard MD [address] [facility], [place], [address], [facility] 01/31/2024 07:03:51 4 Sports Knee 4&1 completed Luis E Richard MD [address] [facility], [place], [address], [facility] 01/30/2024 07:28:20 Imaging Results Imaging Date Name Status LastModified by Organiz ation Details LastModified Time 01/01/2025 XR, foot, 3 or more view completed INTERFACE [facility] [address], [place], [address], 01/01/2025 11:02:28 01/01/2025 XR, foot, 3 or more view completed INTER[facility] [address], [place], [address], 01/01/2025 11:02:30 01/24/2025 XR, knee, 3 view completed INTERFACE [facility] [address], [place], [address], 01/24/2025 09:04:45 01/24/2025 XR, knee, 3 view completed INTERFACE [facility] [address] [facility] [address], [place], [address], 01/24/2025 09:04:47 Procedure Notes None recorded. Medical Equipment None Reported. Allergies Allergen ID Allergen Name Allergen Category Reaction Reaction Severity Criticality Documentation Date Start Date Code Code System Note Provider Name and Address Organization Details Recorded Time 690929 amlodipin e medicatio n [place] [facility] 01/24/2024 77049 RxNorm JUANJOSE AZOMOLLY [facility] 4 14:40:33 [id number] fluticaso ne Not available other Not available [facility] 01/24/2024 47637 RxNorm JUANJOSE EZ [facility] 4 14:42:03 23285 amlodipin e besylate medicatio n Not available Not available Not available 01/09/20242022 86013 6 RxNorm Not Available [facility] 4 13:40:05 54654 Non-stero idal anti-infl ammatory agent (product) medicatio n Not available Not available Not available 01/09/20242019 20427 005 SNOMED Not Available [facility] 4 13:40:05 Medications Name Sig Start Date Stop Date Status Note LastModified by Organization Details LastModified Time Prescriptio n - Prior Authorizati on Request active Not Available Not Available N ot Available [facility] active Not Available Not Available Not Available amoxicillin 500 mg capsule TAKE 4 CAPSULES 1 HOUR PRIOR TO PROCEDURE active Not Available Not Available No t Available prednisone 10 mg tablet PLEASE SEE ATTACHED FOR DETAILED DIRECTION S active Not Available Not Available No t Available azithromyci n 250 mg tablet TAKE 2 TABLETS BY MOUTH TODAY, THEN TAKE 1 TABLET DAILY FOR 4 DAYS DIRECTED active Not Available Not Available No t Available ketotifen 0.025 % (0.035 %) eye drops INSTILL 1 DROP BOTH EYES TWICE A DAY NEEDED active Not Available Not Available No t Available famotidine 40 mg tablet TAKE 1 TABLET BY MOUTH EVERYDAY AT BEDTIME active Not Available Not Available No t Available sumatriptan 50 mg tablet active Not Available Not Available Not Available potassium chloride ER 10 mEq tablet,exte nded release TAKE 1 TABLET BY MOUTH EVERY DAY active Not Available Not Available No t Available tramadol 50 mg tablet 02/08 completed Not Available Not Available Not Available cefadroxil 500 mg capsule TAKE 1 CAPSULE BY MOUTH EVERY 12 HOURS FOR 14 DAYS 07/03 completed Not Available Not Available Not Available terbinafine HCl 250 mg tablet TAKE 1 TABLET BY MOUTH EVERY DAY FOR 14 DAYS active Not Available Not Available No t Available levothyroxi ne 88 mcg tablet TAKE 1 TABLET BY MOUTH EVERY DAY active Not Available Not Available No t Available hydromorpho ne 2 mg tablet TAKE 1 TABLET BY MOUTH FOUR TIMES A DAY FOR NEEDED FOR 28 DAYS 02/08 completed Not Available Not Available Not Available lorazepam 0.5 mg tablet TAKE 1-2 TABLETS BY MOUTH 1 HOUR PRIOR TO INJECTION 07/03 completed Not Available Not Available Not Available aspirin 325 mg tablet,tigre yed release TAKE 1 TABLET BY MOUTH TWICE A DAY FOR 30 DAYS ONLY. MEDICATIO N TO BE STARTED AFTER SURGERY. 07/03 completed Not Available Not Available Not Available prednisone 1 mg tablet TAKE 3 TABLETS BY MOUTH EVERY MORNING. DOUBLE DOSE IN TIMES OF ILLNESS OR STRESS. active Not Available Not Available No t Available morphine 30 mg immediate release tablet TAKE 1 TABLET BY MOUTH EVERY 4 HOURS NEEDED FOR 5 DAYS 02/08 completed Not Available Not Available Not Available econazole nitrate 1 % topical cream APPLY TWICE DAILY TO AFFECTED TOES/WEBS PACES UNTIL RESOLVED. REPEAT NEEDED FOR RECURRENC E. active Not Available Not Available No t Available cephalexin 500 mg capsule TAKE 1 CAPSULE BY MOUTH THREE TIMES A DAY FOR 7 DAYS active Not Available Not Available No t Available pantoprazol e 40 mg tablet,tigre yed release TAKE 1 TABLET BY MOUTH ONCE A DAY 30 MIN TO 1 HOUR BEFORE MORNING MEAL active Not Available Not Available No t Available pseudoephed rine-guaife nesin ER 80-700 mg tablet,exte nded release DO NOT DRIVE WHILE ON THIS MEDICATIO N 08/25 completed Statu s: 'Disc ontin ued'; Not Available Not Available Not Available triamcinolo ne acetonide 0.1 % topical ointment PLEASE SEE ATTACHED FOR DETAILED DIRECTION S active Not Available Not Available No t Available ropinirole 0.5 mg tablet TAKE 1 TABLET BY MOUTH EVERYDAY AT BEDTIME active Not Available Not Available No t Available clotrimazol e-betametha sone 1 %-0.05 % topical cream APPLY TO AFFECTED AREA & SURROUNDI NG AREAS TWICE A DAY IN THE MORNING AND IN THE EVENING FOR 2 WEEKS active Not Available Not Available No t Available bisacodyl 5 mg tablet,tigre yed release TAKE 4 TABLETS BY MOUTH DAILY FOR 1 DAY 07/03 completed Not Available Not Available Not Available furosemide 20 mg tablet TAKE 1 TABLET BY MOUTH EVERY DAY 07/03 completed Not Available Not Available Not Available azelastine 137 mcg (0.1 %) nasal spray SPRAY 1 SPRAY INTO EACH NOSTRIL TWICE A DAY active Not Available Not Available No t Available albuterol sulfate HFA 90 mcg/actuati on aerosol inhaler INHALE 2 PUFFS EVERY 4 HOURS BY INHALATIO N ROUTE NEEDED active Not Available Not Available No t Available ketoconazol e 2 % topical cream APPLY CREAM TO RASH ON TRUNK, EXTREMITI ES, AND GROIN TWICE A DAY UNTIL RASH RESOLVES. active Not Available Not Available No t Available hydromorpho ne 4 mg tablet TAKE 1/2 TABLET BY MOUTH 4 TIMES A DAY NEEDED 02/08 completed Not Available Not Available Not Available morphine 15 mg immediate release tablet TAKE 1 TABLET BY MOUTH THREE TIMES A DAY NEEDED FOR 28 DAYS active Not Available Not Available No t Available hydroxyzine HCl 10 mg tablet TAKE 1 TABLET BY MOUTH EVERY 8 HOURS NEEDED active Not Available Not Available No t Available ondansetron 4 mg disintegrat ing tablet TAKE 1 TABLET BY MOUTH EVERY 8 HOURS NEEDED FOR NAUSEA 07/03 completed Not Available Not Available Not Available doxycycline hyclate 100 mg tablet TAKE 2 TABLETS BY MOUTH ONCE active Not Available Not Available No t Available loratadine 10 mg tablet TAKE 1 TABLET BY MOUTH EVERY DAY FOR 14 DAYS 07/03 completed Not Available Not Available Not Available levothyroxi ne 112 mcg tablet TAKE 1 TABLET BY MOUTH EVERY DAY 07/03 completed Not Available Not Available Not Available amoxicillin 875 mg-potassiu m clavulanate 125 mg tablet TAKE 1 TABLET BY MOUTH EVERY 12 HOURS FOR 7 DAYS active Not Available Not Available No t Available calcipotrie ne 0.005 % topical ointment PLEASE SEE ATTACHED FOR DETAILED DIRECTION S active Not Available Not Available No t Available oxycodone 5 mg tablet TAKE 1 TABLET BY MOUTH EVERY 6 HOURS NEEDED FOR 28 DAYS active Not Available Not Available No t Available olmesartan 20 mg tablet TAKE 1 TABLET BY MOUTH EVERY DAY active Not Available Not Available No t Available ciclopirox 1 % shampoo APPLY AND LATHER TO RASH ON TRUNK, EXTREMITI ES, GROIN TWICE A DAY UNTIL VISIBLY RESOLVED. active Not Available Not Available No t Available trospium 20 mg tablet TAKE 1 TABLET BY MOUTH TWICE A DAY active Not Available Not Available No t Available Gas Relief Extra Strength 125 mg chewable tablet TAKE 3 TABLETS BY MOUTH WHILE DRINKING PREP FOR 1 DAY 07/03 completed Not Available Not Available Not Available pregabalin 150 mg capsule active Not Available Not Available Not Available pregabalin 300 mg capsule TAKE 1 CAPSULE BY MOUTH TWICE A DAY active Not Available Not Available No t Available chlorhexidi ne gluconate 0.12 % mouthwash RINSE 15 ML'S 3 TIMES A DAY AFTER MEALS FOLLOWING BRUSHING AND FLOSSING AND SPIT 07/03 completed Not Available Not Available Not Available melatonin Melatonin 1MG Tablet 08/25 completed Statu s: 'Disc ontin ued'; Not Available Not Available Not Available oxcarbazepi ne OXcarbaze pine 600MG Tablet 03/06 completed Statu s: 'Disc ontin ued'; Not Available Not Available Not Available budesonide- formoterol HFA 160 mcg-4.5 mcg/actuati on aerosol inhaler INHALE 2 PUFFS TWICE A DAY ( IN THE MORNING AND IN THE EVENING ) active Not Available Not Available No t Available levocetiriz ine 5 mg tablet TAKE 1 TABLET BY MOUTH EVERY DAY active Not Available Not Available No t Available oxycodone HCl-oxycodo ne-ASA PRN PAINDO NOT DRIVE WHILE TAKING THIS MEDICATIO N 08/25 completed Statu s: 'Disc ontin ued'; Not Available Not Available Not Available GaviLyte-G 236 gram-22.74 gram-6.74 gram-5.86 gram oral solution DRINK DIRECTED PER INSTRUCTI ONS PROVIDED BY [facility] OFFICE 07/03 completed Not Available Not Available Not Available Otezla 30 mg tablet active Not Available Not Available No t Available naloxone 4 mg/actuatio n nasal spray PLEASE SEE ATTACHED FOR DETAILED DIRECTION S active Not Available Not Available No t Available Rinvoq 15 mg tablet,exte nded release active Not Available Not Available Not Available Vitals Date Recorded Body height Body mass index (BMI) Body weight Provider Name and Address Organization Details Last Updated DateTime 01/22/2025 163.83 cm 35.8 kg/m2 66798.58 g CLAYTON ALVAREZ [facility] 01/22/2025 10:54:12 Date Recorded Body height Provider Name an d Address Organization Details Last Updated DateTime 01/24/2025 163.83 cm VANDANA DUNCANCALLUM [facility] 01/24/2025 08:54:10 Date Recorded Body height Body mass index (BMI) Body weight Provider Name and Address Organization Details Last Updated DateTime 02/08/2025 163.83 cm 33.1 kg/m2 29360.1 g Sarai Crawford [facility] 02/08/2025 09:10:10 Date Recorded Body height Body mass index (BMI) Body weight Provider Name and Address Organization Details Last Updated DateTime 03/19/2025 163.83 cm 33.1 kg/m2 75603.1 g Kathryn Hayes [facility] 03/19/2025 10:52:58 Social History None recorded. Functional Status None recorded. Mental Status None recorded. Family History Nothing Reported. Medical History Condition Response Anxiety/Depression Y Inflammatory Joint disease Y Kidney/Bladder Problems Y Arthritis Y Sleep Apnea Y Acid Reflux (GERD) Y Headaches Y Asthma Y Gynecological HistoryNo gynecological history recorded. Obstetrics History GPAL:G 0 P 0 0 0 0 Past Encounters Encounter ID Performer Location Encounter Start Date Encounter Closed Date Diagnosis/Indication Diagnosis SNOMED-CT Code Diagnosis ICD10 Code Diagnosis Note [id number] MD Jessica Amor [address] [place] [address] 01/24/2024 14:15:15 02/09/2024 08:44:40 Osteoarthritis of left knee joint 4628724193 68982 M17.12 Pain of le ft knee joint 5242846403 86819 M25.345 [id number] Luis E Richard MD [facility] [address] [address] 01/30/2024 10:27:33 02/14/2024 08:30:23 History of total replacement of right hip joint 1361997739 74142 Z96.641 Trochanter ic bursitis of right hip 9537045969 16556 M70.61 [id number] MD Jessica Prajapati [address] [place] [address] 02/24/2024 15:47:10 03/15/2024 08:18:14 Foot pain 58997121 M79.672 Left foot drop 053810969 1 49154 M21.372 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 6035724076 972415 M21.6X2 [id number] MD Jessica Amor [address] [place] [address] 03/26/2024 11:48:35 04/06/2024 16:21:13 History of total replacement of right hip joint 6732378074 15218 Z96.952 [id number] MD Jessica Amor [address] [place] [address] 04/17/2024 08:37:24 05/07/2024 14:53:01 History of total replacement of right hip joint 7525479549 52933 Z96.641 Strain of hamstring tendon 448955499 S76.311A [id number] Christin Harrington, [facility] on PT [address] [place] [address] 05/22/2024 09:37:15 05/22/2024 10:46:05 Pain of right hip joint 2567560764 89880 M25.165 [id number] Kendy Calderon, [facility] on PT [address] [place] [address] 05/24/2024 12:57:11 05/24/2024 13:52:48 Pain of right hip joint 5117241515 27803 M25.515 [id number] MD Jessica Prajapati [address] [place] [address] 05/25/2024 12:28:26 06/14/2024 15:05:22 Foot pain 99791422 M79.672 Left foot drop 980984243 1 30762 M21.372 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 0784339774 194512 M21.6X2 [id number] Kendy Calderon, [employer] [facility] [address] [place] [address] 06/01/2024 14:23:14 06/01/2024 15:33:39 Pain of right hip joint 5929979364 31331 M25.743 [id number] Kendy Claderon, [employer] [facility] [address] [place] [address] 06/05/2024 13:21:15 06/05/2024 14:46:36 Pain of right hip joint 0382131970 20399 M25.323 [id number] Christin Harrington, [facility] [address] [place] [address] 06/12/2024 12:59:18 06/12/2024 14:17:15 Pain of right hip joint 2924522750 53724 M25.098 [id number] GODFREY Ruiz [address] [place] [address] 06/20/2024 14:33:19 07/18/2024 10:47:43 Osteoarthritis of left knee joint 6894298534 23544 M17.12 [id number] Christin Harrington, PT [facility] [address] [place] [address] 06/26/2024 13:04:49 06/27/2024 09:15:07 Pain of right hip joint 1785379684 99684 M25.554 [id number] MD Jessica Amor [address] [place] [address] 07/03/2024 16:14:43 07/25/2024 11:02:02 Pain of left knee joint 9706361193 45243 M25.562 Osteoarthr itis of left knee joint 8360379134 71637 M17.12 [id number] Christin Harrington, [facility] [address] [place] [address] 07/16/2024 12:38:47 07/16/2024 14:53:56 Osteoarthritis of knee 594527588 M17.12 [id number] Swati Rosario, ISMA[facility] [address] [place] [address] 08/09/2024 11:27:52 09/06/2024 04:06:54 [id number] Keith Trinh PA-C [facility] [address] [place] [address] 09/07/2024 13:24:22 09/27/2024 06:09:44 History of total knee arthroplasty 1602253493 105 Z96.894 [id number] Christin Harrington, PT [facility] on [address] [place] [address] 09/18/2024 14:10:05 09/18/2024 15:35:54 History of left total knee replacement 3799242203 274060 Z96.652 Z47.1 [id number] Kendy Yumiko, [facility] on [address] [place] [address] 09/20/2024 09:08:36 09/20/2024 10:31:23 History of left total knee replacement 8940743160 450610 Z96.652 Z47.1 [id number] Christin Harrington, [facility] on [address] [place] [address] 09/27/2024 08:25:29 09/27/2024 09:49:55 History of left total knee replacement 7336462011 864602 Z96.652 Z47.1 [id number] Rosendo Escalera PA-C [facility] [address] [place] [address] 09/25/2024 08:46:13 10/15/2024 13:26:18 Pain of left knee joint 3354212513 00492 M25.316 [id number] Luis E Richard MD [facility] [address] [place] [address] 10/02/2024 08:45:19 10/24/2024 10:03:57 History of total knee arthroplasty 3209650990 105 Z96.652 Trochanter ic bursitis of left hip 9564867611 36863 M70.62 [id number] Kendy Calderon, [employer] [facility] [address] [place] [address] 10/03/2024 10:51:39 10/03/2024 12:47:01 History of left total knee replacement 1013551770 630486 Z96.652 Z47.1 [id number] Kendy Calderon [employer] [facility] [address] [place] [address] 10/09/2024 14:50:39 10/09/2024 16:01:39 History of left total knee replacement 1452041928 429685 Z96.652 Z47.1 [id number] Kendy Calderon [employer] [facility] [address] [place] [address] 10/12/2024 13:15:27 10/12/2024 14:29:27 History of left total knee replacement 5365990088 325766 Z96.652 Z47.1 [id number] Christinbassam Harrington, PT [facility] [address] [place] [address] 10/16/2024 08:20:21 10/16/2024 10:21:30 History of left total knee replacement 4936414543 170661 Z96.652 Z47.1 [id number] Kendy Calderon, [employer] [facility] [address] [place] [address] 10/18/2024 08:36:31 10/18/2024 09:41:26 History of left total knee replacement 1577533260 718182 Z96.652 Z47.1 [id number] Kendy Calderon, [employer] [facility] [address] [place] [address] 10/22/2024 10:07:33 10/22/2024 11:30:06 History of left total knee replacement 8263735488 670728 Z96.652 Z47.1 [id number] Christin Harrington, PT [facility] [address] [place] [address] 10/25/2024 09:54:31 10/25/2024 11:35:08 History of left total knee replacement 5324439341 711070 Z96.652 Z47.1 [id number] Kendy Calderon, [employer] [facility] [address] [place] [address] 10/30/2024 09:25:46 10/30/2024 10:34:33 History of left total knee replacement 1893789075 801063 Z96.652 Z47.1 [id number] Kendy Calderon, [employer] [facility] [address] [place] [address] 11/01/2024 09:24:38 11/01/2024 10:53:11 History of left total knee replacement 3794925380 260688 Z96.652 Z47.1 [id number] Christin Harrington, PT [facility] [address] [place] [address] 11/06/2024 09:22:45 11/06/2024 11:07:07 History of left total knee replacement 8791535064 723285 Z96.652 Z47.1 [id number] JINNY WALKER PA-C [facility] [address] [place] [address] 01/01/2025 09:35:11 01/11/2025 08:51:57 Pain in left foot 1451679891 70369 M79.672 Sprain of left foot 1183 978577 4616955 S93.602A [id number] JINNY WALKER PA-C [facility] [address] [place] [address] 01/22/2025 10:28:23 02/05/2025 08:57:29 Sprain of left foot 5573843915 7948504 S93.602D Hammer toe 824569159 M20 .41 [id number] Sury Bowden PA-C [facility] [address] [place] [address] 01/24/2025 08:51:03 02/08/2025 09:28:58 History of left total knee replacement 8955479862 792396 Z96.302 [id number] Nic Plascencia PA-C [facility] [address] [place] [address] 02/08/2025 09:03:02 02/25/2025 09:52:55 History of left total knee replacement 9902876501 368181 Z96.856 [id number] JINNY WALKER PA-C [facility] [address] [place] [address] 03/19/2025 10:48:40 03/19/2025 11:29:40 Toe joint rigid 736283542 M20.22 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 3661149185 0398426 M20.41 M20.42 Cavovarus deformity of foot 944459088 Q66.10 Left foot drop 538484500 1 15734 M21.372 Health Concerns Section Related Observation LastModified by Organization Detai ls LastModified Time None Recorded Concern Status LastModified by Organization Details LastModified Time None Recorded Advance Directives Directive None Recorded Payers Encounter Date Sequence Insurance Name Policy Number Policy Saez Covered Member ID Saez Member ID Guarantor Name 01/01/2025 1 [place] [employer] Marisol Howard [id number] Marisol Howard 01/01/2025 2 [place] [facility] Marisol Howard [id number] Marisol Howard 01/22/2025 1 [place] [employer] Marisol Howard [id number] Marisol Howard 01/22/2025 2 [place] [facility] Marisol Howard [id number] Marisol Howard 01/24/2025 1 [place] [facility] Marisol Howard [id number] Marisol Howard 01/24/2025 2 [place] Marisol Howard [id number] Marisol Howard 02/08/2025 1 [place] [employer] Marisol Howard [id number] Marisol Howard 02/08/2025 2 [place] [facility] Marisol Howard [id number] Marisol Howard 03/19/2025 1 [place] [facility] Marisol Howard [id number] Marisol Howard 03/19/2025 2 [place] [facility] Marisol Howard [id number] Marisol Howard Notes Date Note Type Note Provider Name and Address Organization Details Recorded Time 5 text/html I am seeing this patient under the supervision of Dr. Naranjo, who was available but who did not see the patient. Chief Complaint: Left foot pain HPI: Patient is a pleasant 59-year-old female presents in office today due to increase in left foot pain. She was last seen in office by Dr. Leal 05/25/2024 potential surgical options were discussed at this appointment for lateral column overload it appears patient was lost to follow-up and has since undergone left total knee replacement with Dr. Johnson August 2024. Patient presents today stating she has had a new acute onset of pain in the left foot due to to recent falls. She is unable to recall any specific mechanism of injury to the foot or ankle but states she has had increased swelling over the dorsum of the left foot pain into the toes and pain along the dorsum of the foot. She is utilizing a cane for ambulation at this time states she has not been utilizing her AFO brace that she never got the appropriate on the Dr. Leal wanted . She occasionally notes she continues to have some dropfoot on the side. PFMSH, Meds and ROS reviewed, updated and signed by me, and is located in the patient's chart.PHYSICAL EXAMINATION: The patient is well appearing and in no apparent distress. Alert and oriented x 3. On seated examination patient has observable edema and ecchymosis along the dorsum of the forefoot. Patient has observable hammertoe deformity of the second and third digits as well as mild hallux valgus deformity. Patient is significantly tender to palpation along the distal first second and third rays at the metatarsal bases and intermetatarsal space. Active range of motion the ankle is within normal limits in dorsiflexion plantarflexion inversion eversion dorsiflexion elicits pain response. Digital range of motion is intact but painful in all 5 digits.Sensory exam- reports sensation intact to light touch SP/DP/S/S/T distributions Palpable DP/PT pulses, foot warm and well perfused, appropriate capillary refill Calf is soft, supple, non-tender RADIOLOGY: X-rays were ordered, obtained, and reviewed today in our office. 3 views weightbearing left foot indicative of intact hardware in the second and third tarsometatarsal joints dislocated hammertoes of the second and third MTP joints mild hallux valgus alignment. No acute fractures dislocations noted. IMPRESSION: Forefoot sprain PLAN: Discussed the findings and situation with the patient today. At this time I would recommend immobilization in a short cam boot as she is having significant difficulty ambulating we can give her out of work through the rest of the week allowing her to return in her boot with seated duty as needed on the following Tuesday. Patient will follow-up in office in 3 weeks. All her questions asked and answered patient expressed understanding for the plan. We did discuss at length if in the event she continues to have an effusion around her knee and pain with her total knee replacement she should call and be seen by one of our total's PAs for follow-up. The patient is ambulatory, but has weakness and/or instability of their extremity which requires stabilization from this semi-rigid/rigid orthosis to improve their function. Verbal and written instructions for the use and application of this item were given. Patient was instructed that should the brace result in increased pain, decreased sensation, increased swelling or an overall worsening of their medical condition, to please contact our office immediately. [employer] [facility] speech recognition transit mix operator software was used to create portions of this document. An attempt at proofreading has been made to minimize errors. Please call for corrections. JINNY WALKER PA-C [address] [facility] [address], [place], [address], [facility] 01/01/2025 12:39:01 5 text/html I am seeing this patient under the supervision of Dr. Ashton, who was available but who did not see the patient. Chief Complaint: Left foot pain HPI: Patient is a pleasant 59-year-old female presents in office today in follow-up for previous sprain of left foot. Patient states she weaned herself out of her tall cam boot on her own. She states she continues to have intermittent pain along the lateral aspect of the forefoot as well as under the metatarsal heads. Patient also goes on to discuss medial sided knee pain from his previous fall that she took that is lingered however she declined being seen by totals provider at previous appointment. PFMSH, Meds and ROS reviewed, updated and signed by me, and is located in the patient's chart.PHYSICAL EXAMINATION: The patient is well appearing and in no apparent distress. Alert and oriented x 3. On seated examination patient has observable edema and ecchymosis along the dorsum of the forefoot. Patient has observable hammertoe deformity of the second and third digits as well as mild hallux valgus deformity patient's fourth toe also dives under the third . Patient is significantly tender to palpation along the distal first second and third rays at the metatarsal bases and intermetatarsal space. Active range of motion the ankle is within normal limits in dorsiflexion plantarflexion inversion eversion dorsiflexion elicits pain response. Digital range of motion is intact but painful in all 5 digits.Sensory exam- reports sensation intact to light touch SP/DP/S/S/T distributionsPalpable DP/PT pulses, foot warm and well perfused, appropriate capillary refillCalf is soft, supple, non-tender RADIOLOGY: X-rays were ordered, obtained, and reviewed today in our office. 3 views weightbearing left foot indicative of intact hardware in the second and third tarsometatarsal joints dislocated hammertoes of the second and third MTP joints mild hallux valgus alignment. No acute fractures dislocations noted. IMPRESSION: Forefoot sprain, painful hammertoe forefoot deformity PLAN: Discussed the findings and situation with the patient today. At this time I would recommend continued conservative management. Patient is not of any surgical mindset at this time. Would continue with home exercise program she was given updated exercises for the foot and ankle. I did highly encourage that the patient follow-up with one of the total joint PA due to continued pain and swelling along the medial aspect of the knee from a fall. Patient was given a follow-up with this team. She will follow-up with myself in about [address] [facility] ([place], [place])[employer] [facility] speech recognition transit mix operator software was used to create portions of this document. An attempt at proofreading has been made to minimize errors. Please call for corrections. JINNY WALKER PA-C [address] [facility] [address], [place], [address], [facility] 01/22/2025 12:27:53 5 text/html I am seeing the patient today under the supervision of {{[employer] porfirio}} who was available but who did not see the patient. HPI: 59-year-old female patient presents today for left knee pain after several falls, most recently 3-4 weeks ago on the ice, onto the anterior aspect of her knee. She notes a resolving bruise at the medial aspect of the knee, pain has been improving. History of left total knee arthroplasty Dr. Johnson 08/21/24. Pain exacerbated with long periods of standing or walking and sleeping at night. She is on Prednisone 3 mg for adrenal insufficiency, unable to take NSAIDs. She has tried tylenol and leftover pain medications she had from previous surgery with mild relief. Past family, social history and review of systems has been reviewed, updated and is located in the patient? s chart. PHYS EXAM:Alert and oriented, no acute distress. Gait is mildly antalgic.Left knee: Anterior knee incision well healed. Resolving ecchymosis about the medial compartment, tender to palpation in this area. Minimal effusion. Knee ROM 0-120. Calf is soft, non-tender. Knee is stable to valgus varus stress. X-RAYS: 3v X-rays of the {{Right Left* Bilateral}} knee were ordered, obtained and reviewed today at [facility] demonstrates maintained alignment of the prosthetic components, no fractures or dislocations, excellent interface, patella tracking centrally. No changes from previous x-rays. IMPRESSION: {{Right Left* Bilateral}} knee contusion s/p total knee arthroplasty Dr. Johnson 08/21/24 after fall on ice about 3-4 weeks ago PLAN: Findings reviewed. Discussed she likely has a contusion, possibly could have irritated her nerve as well when she fell directly onto her knee. She is unable to take NSAIDs due to adrenal insufficiency. She takes prednisone 3 mg daily for this. Recommended ongoing Tylenol, ice/heat, over the counter topical voltaren cream or lidocaine patches for pain relief. She has a hinged knee brace at home, recommended wearing this over the next few weeks for some support and stability. Work note was provided to have her work reduced hours for the next 4-6 weeks. She will follow-up as symptoms dictate. All of her concerns are addressed and she understands and agrees with the plan. Speech recognition transit mix operator software was used to create portions of this document. An attempt at proofreading has been made to minimize errors. Please call for corrections. Sury Bowden PA-C [address] [facility] [address], [place], [address], [facility] [place] [facility] 01/24/2025 17:23:18 5 text/html I am seeing this patient under the supervision of Dr. Naranjo, who was available but who did not see the patient. Chief Complaint: Left foot pain HPI: Patient is a pleasant 59-year-old female presents in office today in follow-up for previous sprain of left foot. Patient presents today stating that her swelling and pain has gotten worse over time. She states that the swelling and pain is primarily between the 1st and 2nd toes. Her 2nd and 3rd hammertoes continue to be painful show her third toe is now crossing more over the fourth toe. She is followed by podiatry for callus removal she states her ammonia technician today said that that her calluses have worsened on the left foot per patient report. She does present today with a wound on the left lower extremity from walking to her bladder fibrillation that is being managed by another provider. PFMS, Meds and ROS reviewed, updated and signed by me, and is located in the patient's chart.PHYSICAL EXAMINATION: The patient is well appearing and in no apparent distress. Alert and oriented x 3. On seated examination patient has observable edema and ecchymosis along the dorsum of the forefoot. Patient has observable hammertoe deformity of the second and third digitspatient's fourth toe also dives under the third as well as mild hallux valgus deformity . Patient is significantly tender to palpation along the distal first second and third rays at the metatarsal bases and intermetatarsal space. Active range of motion the ankle is within normal limits in dorsiflexion plantarflexion inversion eversion dorsiflexion elicits pain response. Digital range of motion is intact but painful in all 5 digits.Sensory exam- reports sensation intact to light touch SP/DP/S/S/T distributionsPalpable DP/PT pulses, foot warm and well perfused, appropriate capillary refillCalf is soft, supple, non-tender RADIOLOGY: X-rays were ordered, obtained, and reviewed today in our office. 3 views weightbearing left foot indicative of intact hardware in the second and third tarsometatarsal joints, dislocated hammertoes of the second and third MTP joints, mild hallux valgus alignment. No acute fractures dislocations noted. IMPRESSION: painful hammertoe forefoot deformity, cavovarus deformity PLAN: Discussed the findings and situation with the patient today. Patient has previously met with Dr. Leal in the past treated conservatively with AFO did discuss potential surgery in the future however now patient's complaints seem to be less due to cavovarus deformity and more due to hammertoe and hallux valgus. However I do believe she continues to overload the lateral border of the foot when ambulating. Patient has requested a follow-up appointment to discuss potential for residual surgical options with Dr. Leal. This was facilitated the end of the appointment. She has failed conservative treatment with the AFO which is not significantly helpful she is having difficulty finding shoes that fit her that are comfortable at this time. Continues to have pain with ambulating and difficulty with activities of daily living and working. [facility] speech recognition transit mix operator software was used to create portions of this document. An attempt at proofreading has been made to minimize errors. Please call for corrections. JINNY WALKER PA-C [address] [facility] [address], [place], [address], [facility] [place] [facility] 03/19/2025 11:29:38 OBGyn Episode No OBEpisode recorded.
--- OUTSIDE RECORDS SUMMARY | 2025-03-22 10:39 | XMS_ITS | Clinical Summary ---
Author Organization [facility] [place] [address] Care Team Providers Care Speed Operator Name Role Phone Kaycee Rebollar AMBULANCE PARAMEDIC Primary Care Provid er Social History Tobacco Use Types Packs/Day Years Used Date Smoking Tobacco: Never Assessed Comments Unknown Sex and Gender Information Value Date Recorded Sex Assigned at Female 03/18/2025 1:35 PM EDT Legal Sex Female 3:06 PM EST Gender Identity Female 03/18/2025 1:35 PM EDT Sexual Orientation Straight 03/18/2025 1: 35 PM EDT Plan of Treatment Upcoming Encounters Date Type Department Care Team (Late st Contact Info) Description 03/28/2025 9:[address] [facility] CT Scan [address] [place] [address] Health Maintenance Due Date Last Done Comments Breast Cancer Screening 1965 DTaP,Tdap,and Td Vaccines (1 - Tdap) 02/16/1983 Cervical Cancer Screening: P ap Smear 02/16/1985 Pneumococcal Vaccine: 50+ Ye ars (1 of 1 - PCV) 02/16/2014 Zoster Vaccines (1 of 2) 02/16/2014 Colorectal Cancer Screening: Colonoscopy 10/06/2022 Depression Screening 10/06/2022 HIV Screening 10/06/2022 Hepatitis C Screening 10/06/2022 Medicare Annual Wellness Visit 10/06/2022 Social Influencers of Health Screening 10/06/2022 COVID-19 Vaccine ( - 2023-2 5 season) 2024 Influenza Vaccine (Season Ended) 2025 RSV Immunization Adult Patie nts (1 - 1-dose 75+ series) 02/16/2039 HIB Vaccines Aged Out No longer eligi ble based on patient's age to complete this topic HPV Vaccines Aged Out No longer eligi ble based on patient's age to complete this topic Hepatitis A Vaccines Aged Out No long er eligible based on patient's age to complete this topic Hepatitis B Vaccines Aged Out No long er eligible based on patient's age to complete this topic IPV Vaccines Aged Out No longer eligi ble based on patient's age to complete this topic MMR Vaccines Aged Out No longer eligi ble based on patient's age to complete this topic Meningococcal ACWY Vaccine Aged Out N o longer eligible based on patient's age to complete this topic Meningococcal B Vaccine Aged Out No l onger eligible based on patient's age to complete this topic Pneumococcal Vaccine: Pediat rics (0 to 5 Years) and At-Risk Patients (6 to 64 Years) Aged Out No longer eligible b ased on patient's age to complete this topic RSV Immunization Patients Un erin 20 months Aged Out No longer eligible b ased on patient's age to complete this topic Varicella Vaccines Aged Out No longer eligible based on patient's age to complete this topic Insurance [place] - [place] MEDICARE Advance Directives Documents on File Type Date 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
--- OUTSIDE RECORDS SUMMARY | 2025-03-22 10:40 | XMS_ITS | Continuity of Care Document ---
Author Organization [facility], [place] 1st Floor Address [address] [place] [address] Care Team Providers Care Material Attendant Name Role Phone CALVIN MOREAU Referring Provider CALVIN MOREAU Primary Care Provider Assessment No assessment recorded. Plan of Treatment Reminders Order Date Submit [...] recorded . Surgeries None recorded . Imaging None recorded . Medication Orders None recorded . Patient TargetsNo targets recorded. Patient InstructionsNo instructions recorded. Reason for Referral None Reported. Problems Name Problem SNOMED Code Status Onset Date Resolution Date Notes Provider Name and Address Organization Details Recorded Time Pain of left knee joint 9757241385344 07 Active 2023 DAFNE oh [facility] 4 09:45:55 Toe joint rigid 533146240 Active 2024 JINNY WALKER PA-C [address], [place], [address] , [facility] 5 11:28:35 Acquired hammer toes of bilateral feet 5633665388978 9104 Active 2024 JINNY WALKER PA-C [address], [place], [address] , [facility] 5 11:28:43 Cavovarus deformity of foot 890244740 Active 2024 JINNY WALKER PA-C [address], [place], [address] , [facility] 5 11:28:54 Left foot drop 5959254775747 05 Active 2024 JINNY WALKER PA-C [address], [place], [address] , [facility] 5 11:29:22 Pain of right knee joint 5468092349876 00 Active 2020 Status : 'A'; Not Available [facility] 4 11:14:20 Problem Notes None recorded. Procedures Surgical History Date Name Laterality Status Provider Name and Address Organization Details Recorded Time 4 00036: Therapeutic Activities (1:1) completed Kendy Calderon PTA [address], [place], [address], [facility] 10/22/2024 11:06:34 4 62434: Therapeutic Activities (1:1) completed Kendy Calderon PTA [address], [place], [address], [facility] 10/18/2024 09:32:52 4 94771 Therapeutic Exercise (1:1) completed Kendy Calderon PTA [address], [place], [address], [facility] 10/18/2024 09:32:48 4 16878: Therapeutic Activities (1:1) completed Christin Harrington PT [address], [place], [address], [facility] 10/16/2024 06:59:40 4 96171 Therapeutic Exercise (1:1) completed Christin Harrington PT [address], [place], [address], [facility] 10/16/2024 06:59:40 4 10576: Therapeutic Activities (1:1) completed Kendy Calderon PTA [address], [place], [address], [facility] 10/12/2024 14:42:39 4 78726 Therapeutic Exercise (1:1) completed Kendy Calderon PTA [address], [place], [address], [facility] 10/12/2024 14:42:39 4 00988: Therapeutic Activities (1:1) completed Kendy Calderon PTA [address], [place], [address], [facility] 10/09/2024 15:39:34 77613 Therapeutic Exercise (1:1) completed Kendy Calderon PTA [address], [place], [address], [facility] 10/09/2024 15:39:29 4 12603 Therapeutic Exercise (1:1) completed Kendy Calderon PTA [address], [place], [address], [facility] 10/03/2024 11:52:34 4 Hip Kenalog 1cc Injection, L/R completed Luis E Richard MD [address], [place], [address], [facility] 10/16/2024 06:55:44 4 25379 Therapeutic Exercise (1:1) completed Christin Harrington PT [address] [facility], [place], [address], [facility] 09/27/2024 09:35:47 4 77512 Therapeutic Exercise (1:1) completed Kendy Calderon PTA [address], [place], [address], [facility] 09/20/2024 10:14:29 4 07005 Therapeutic Exercise (1:1) completed Christin Harrington, PT [address], [place], [address], [facility] 09/19/2024 09:10:41 4 18712: Low complexity PT Eval completed Christin Harrington, PT [address], [place], [address], [facility] 09/19/2024 09:10:33 4 G8417 BMI Above Upper Parameters, F/U Documented completed Christin Harrington, PT [address], [place], [address], [facility] 09/19/2024 09:13:51 4 G8427 Current Medication Documented completed Christin Harrington, PT [address], [place], [address], [facility] 09/19/2024 09:13:55 4 04810 Therapeutic Exercise (1:1) cancelled Christin Harrington, PT [address], [place], [address], [facility] 08/29/2024 14:22:01 4 67425: Low complexity PT Eval cancelled Christin Harrington, PT [address], [place], [address], [facility] 08/29/2024 14:22:01 4 46730 Therapeutic Exercise (1:1) completed Christin Harrington, PT [address], [place], [address], [facility] 07/18/2024 07:03:18 4 22304: Low complexity PT Eval completed Christin Harrington, PT [address], [place], [address], [facility] 07/18/2024 07:04:23 4 G8417 BMI Above Upper Parameters, F/U Documented completed Christin Harrington, PT [address], [place], [address], [facility] 07/18/2024 07:08:16 4 G8427 Current Medication Documented completed Christin Harrington, PT [address], [place], [address], [facility] 07/18/2024 07:09:47 4 17965 Therapeutic Exercise (1:1) completed Christin Harrington, PT [address], [place], [address], [facility] 06/27/2024 08:12:26 4 98484 Therapeutic Exercise (1:1) completed Christin Harrington, PT [address], [place], [address], [facility] 06/12/2024 14:08:25 4 23844 Therapeutic Exercise (1:1) completed Kendy Calderon, COMMISSIONING MANAGER [address], [place], [address], [facility] 06/05/2024 14:27:56 4 06231 Therapeutic Exercise (1:1) completed Kendy Calderon, COMMISSIONING MANAGER [address], [place], [address], [facility] 06/01/2024 15:21:40 4 34807 Therapeutic Exercise (1:1) completed Kendy Calderon, COMMISSIONING MANAGER [address], [place], [address], [facility] 05/24/2024 13:51:11 4 05705: Moderate complexity PT eval completed Christin Harrington, PT [address], [place], [address], [facility] 05/23/2024 19:18:19 4 G8417 BMI Above Upper Parameters, F/U Documented completed Christin Harrington, PT [address], [place], [address], [facility] 05/23/2024 19:33:24 4 G8427 Current Medication Documented completed Christin Harrington, PT [address], [place], [address], [facility] 05/23/2024 19:33:29 4 Hip Kenalog 1cc Injection, L/R completed Luis E Richard MD [address], [place], [address], [facility] 01/31/2024 07:03:51 4 Sports Knee 4&1 completed Luis E Richard MD [address], [place], [address], [facility] 01/30/2024 07:28:20 Imaging Results None recorded. Procedure Notes None recorded. Medical Equipment None Reported. Allergies Allergen ID Allergen Name Allergen Category Reaction Reaction Severity Criticality Documentation Date Start Date Code Code System Note Provider Name and Address Organization Details Recorded Time 460970 amlodipin e medicatio n flushing severe high 01/24/2024 78147 RxNorm JUANJOSE AZOUINA [facility] 4 14:40:33 516912 fluticaso ne Not available other Not available high 01/24/2024 13674 RxNorm JUANJOSE AZOUINA [facility] 4 14:42:03 93326 amlodipin e besylate medicatio n Not available Not available Not available 01/09/20242022 15323 6 RxNorm Not Available [facility] 4 13:40:05 46858 Non-stero idal anti-infl ammatory agent (product) medicatio n Not available Not available Not available 01/09/20242019 16670 005 SNOMED Not Available [facility] 4 13:40:05 Medications Name Sig Start Date [...] Updated DateTime 03/19/2025 163.83 cm 33.1 kg/m2 71956.1 g Kathryn Hayes [place] [facility] 03/19/2025 10:52:58 Social History None recorded. Functional Status None recorded. Mental Status None recorded. Family History Nothing Reported. Medical History Condition Response Inflammatory Joint disease Y Anxiety/Depression Y Kidney/Bladder Problems Y Arthritis Y Sleep Apnea Y Acid Reflux (GERD) Y Headaches Y Asthma Y Gynecological HistoryNo gynecological history recorded. Obstetrics History GPAL:G 0 P 0 0 0 0 Past Encounters Encounter ID Performer Location Encounter Start Date Encounter Closed Date Diagnosis/Indication Diagnosis SNOMED-CT Code Diagnosis ICD10 Code Diagnosis Note [id number] [facility] SALGADO [address] [place] [address] 03/19/2025 10:48:40 03/19/2025 11:29:40 Toe joint rigid 730257619 M20.22 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 9060627739 6186274 M20.41 M20.42 Cavovarus deformity of foot 192753747 Q66.10 Left foot drop 330052779 1 08921 M21.372 Health Concerns Section Related Observation LastModified by Organization Detai ls LastModified Time None Recorded Concern Status LastModified by Organization Details LastModified Time None Recorded Payers Encounter Date Sequence Insurance Name Policy Number Policy Saez Covered Member ID Saez Member ID Guarantor Name 03/19/2025 1 [place] [employer] Marisol Howard [id number] Marisol Heredia Howard 03/19/2025 2 [place] Marisol Howard [id number] Marisol Howard Notes Date Note Type Note [...] podiatry for callus removal she states her laboratory analyst today said that that her calluses have [...] with activities of daily living and working. [facility] speech recognition manager poker software was used to create portions of this document. An attempt at proofreading has been made to minimize errors. Please call for corrections. JINNY WALKER PA-C [address], [place], [address], [facility] - [facility] 03/19/2025 11:29:38 OBGyn Episode No OBEpisode recorded.
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
--- OUTSIDE RECORDS SUMMARY | 2025-03-22 10:40 | XMS_ITS | Clinical Summary ---
Author Organization [facility] Address [address] [place] [address] Phone Care Team Providers Care Smasher Name Role Phone Kaycee Rebollar [facility] Primary Care Provider Allergies Active Allergy Reactions Criticality Noted Date Comments Amlodipine Other (see comments) 07/28/2023 Fluticasone Other (see comments) 03/26/2020 Ibuprofen Other (see comments) 03/26/2020 Potassium levels high Pt stated screws up my system: Potassium levels high Pt stated screws up my system: Sulfa Antibiotics 04/23/2021 Affects adrenal insufficiency per patient. Affects adrenal insufficiency per patient. Medications albuterol HFA (PROVENTIL HFA;VENTOLIN HFA) 108 (90 Base) MCG/ACT inhaler Ventolin HFA 90 mcg/actuation aerosol inhaler Active EPINEPHrine (EPIPEN) 0.3 MG/0.3ML injection syringe EpiPen 2-Dread 0.3 mg/0.3 mL injection, auto-injector Active levocetirizine (XYZAL) 5 MG tablet Take 1 tablet by mouth 1 (one) time each day 1 Active levothyroxine (SYNTHROID, LEVOTHROID) 88 MCG tablet Take 88 mcg by mouth 1 (one) time each day 1 Active SUMAtriptan (IMITREX) 50 MG tablet Take 1 tablet by mouth 1 (one) time each day Active pregabalin (LYRICA) 300 MG capsule Take 300 mg by mouth 2 (two) times a day Active Apremilast (Otezla) 30 MG tablet Take 30 mg by mouth twice a day 0 Active cholecalciferol (VITAMIN D-3) 25 MCG (1000 UT) tablet Take 1,000 Units by mouth 1 (one) time each day Active Azelastine HCl 137 MCG/SPRAY solution Administer 1 spray into each nostril in the morning and 1 spray in the evening. 3 Active Rinvoq 15 MG tablet sustained-relea se 24 hour Active oxyCODONE (OXY-IR) 5 MG immediate release capsule Take 5 mg by mouth every 4 (four) hours if needed for moderate pain Active Active Problems Problem Noted Date Diagnosed Date Asthma 07/28/2023 07/28/2023 Chronic back pain 07/28/2023 07/28/2023 History of clinical finding in subject 3 07/28/2023 Overview (07/28/2023): Pain relevant problem list includes: See below Hypertensive disorder 07/28/2023 07/28/2023 Hypoadrenalism 07/28/2023 07/28/2023 Hypothyroidism 07/28/2023 07/28/2023 Migraine 07/28/2023 07/28/2023 Neuropathy 07/28/2023 07/28/2023 Obese class II 07/28/2023 07/28/2023 Obstructive sleep apnea 07/28/2023 07/28/20 Psoriatic arthritis 07/28/2023 07/28/2023 Hypokalemia 10/21/2022 Edema 10/21/2022 Neck pain 06/09/2022 07/28/2023 Severe obesity 06/09/2022 07/28/2023 Somatization disorder 06/09/2022 07/28/2023 Stage 3 chronic kidney disease 09/22/2021 Chronic kidney disease, stage 2 (mild) Hyperkalemia 09/22/2021 Hypertensive renal disease 09/22/2021 Hyposmolality and/or hyponatremia 09/22/2021 Simple renal cyst 09/22/2021 Neutropenia 08/19/2020 07/28/2023 Anemia 07/28/2020 07/28/2023 Triggering of digit 06/01/2020 07/28/2023 Overview (07/28/2023): IMO 08/07/2021 Primary osteoarthritis of right hand 06/01/2020 07/28/2023 Spinal stenosis 07/10/2019 07/28/2023 Cortisol level outside reference range 8 Acute nontraumatic kidney injury Immunizations Immunization Administration Dates Next Due H1N1 Inj 11/20/2009 Influenza (IM) Preservative Free 07/30/2013 Influenza Split Preservative Free ID 08/13/2014 Influenza, Quadrivalent, Pre servative Free 07/05/2021,07/04/2020,06/28/2019,08/17,07/14/2017,07/28/2016,07/23/2015 Influenza, Unspecified 07/22/2022,2020,07/04/2020,06/28,08/17/2018,07/14/2017,07/28/2016 ,07/23/2015,08/13/2014,07/30/2013,07/08,06/29/2011,07/27/2010, 9,07/31/2008,09/07/2007,09/16/2006,,08/12/2004,08/28/2003,08/28/20 02,09/24/2001,09/27/2000 Pfizer SARS-COV-2 01/10/2022,07/05/2021 Pneumococcal Conjugate 13-Valent 11/17/2018 Pneumococcal Polysaccharide 07/17/2012 Shingrix 04/14/2021,12/16/2020,11/08/2020 Td, Unspecified 05/07/2003 Tdap 12/10/2019,07/17/2012 Family History Medical History Relation Comments Cancer Father prostate Dementia Father Diabetes Father Hypertension Mother Relation Status Comments Father Alive Mother Alive Social History Tobacco Use Types Packs/Day Years Used Date Smoking Tobacco: Never Smokeless Tobacco: Never Tobacco Cessation:Counseling Given: No Alcohol Use Standard Drinks/Week Comments No 0 (1 standard drink = 0.6 oz pur e alcohol) Comments Unknown Sex and Gender Information Value Date Recorded Sex Assigned at Female 10/20/2022 6:26 PM EST Legal Sex Female 4:46 PM EST Gender Identity Female 10/20/2022 6:26 PM EST Sexual Orientation Straight 10/20/2022 6: 26 PM EST Last Filed Vital Signs Vital Sign Reading Time Taken Comments Blood Pressure 118/63 03/29/2024 1:15 PM EDT Pulse 55 03/29/2024 1:15 PM EDT Temperature - - Respiratory Rate - - Oxygen Saturation 98% 09/23/2021 4:07 PM EST Inhaled Oxygen Concentration - - Weight 98 kg (216 lb) 03/29/2024 1:15 PM EDT Height 165.1 cm (5' 5 ) 09/23/2021 4:07 PM EST Body Mass Index 35.94 09/23/2021 4:07 PM EST Plan of Treatment Upcoming Encounters Date Type Department Care Team (Late st Contact Info) Description 04/04/2025 4:00 PM EDT Office Visit [facility] [address] [place] [id number] Jesus Manuel Ramirez MD [address] [phone] Health Maintenance Due Date Last Done Comments Breast Cancer Screening 1965 Colorectal Cancer Screening: Annual FOBT 02/16/2013 Colorectal Cancer Screening: Colonoscopy 02/16/2013 Colorectal Cancer Screening: Sigmoidoscopy 02/16/2013 Pneumococcal Vaccine: 50+ Years (3 of 3 - PPSV23, PCV20 or PCV21) 01/12/2019 11/17/2018, 07/17/2012 Influenza Vaccine (Season Ended) 2025 08/08/2023, 07/22/2022, 07/05/2021, Additional history exists Pneumococcal Vaccine: Peds (0 to 5 Years) and At-Risk Patients (6 to 49 Years) Discontinued 11/17/2018, 07/17/2012 Hepatitis B Vaccine Aged Out No longe r eligible based on patient's age to complete this topic Insurance Medicaid [place] Care Teams Smasher Relationship Specialty Start Date End Date Kaycee Rebollar FNP-BC [address] [place] [id number] PCP - General 11/17/20
--- OUTSIDE RECORDS SUMMARY | 2025-03-22 10:40 | XMS_ITS | Clinical Summary ---
Author Organization [facility] Address [address] [place] [address] Care Team Providers Care Final Block Press Operator Name Role Phone Kaycee Rebollar NP Primary Care Provider Allergies Active Allergy Reactions Criticality Noted Date Comments Amlodipine Edema,Other (see comments),Unknown,M uscle Pain,Swelling High 09/23/2022 Fluticasone Propionate Nosebleed 03/26/2020 Ibuprofen Unknown 03/26/2020 Potassium levels high Nsaids (Non-Steroidal Anti-Inflammatory Drug) Unknown 04/23/2021 Affects adrenal insufficiency per patient. Sulfa (Sulfonamide Antibiotics) Unknown 04/23/2021 Affects adrenal insufficiency per patient. Medications EPINEPHrine (EPIPEN 2-DREAD) 0.3 mg/0.3 mL injection syringe EpiPen 2-Dread 0.3 mg/0.3 mL injection, auto-injector Active levocetirizine (XYZAL) 5 mg tablet levocetirizine 5 mg tablet Active OTEZLA 30 mg tablet 0 Active SUMAtriptan (IMITREX) 100 mg tablet Take 50 mg by mouth. Active albuterol (VENTOLIN HFA) 90 mcg inhaler Ventolin HFA 90 mcg/actuation aerosol inhaler Active furosemide (LASIX) 20 mg tablet furosemide 20 mg tablet Active azelastine (ASTELIN) 137 mcg (0.1 %) nasal spray azelastine 137 mcg (0.1 %) nasal spray aerosol Active HYDROmorphone (DILAUDID) 2 mg tablet hydromorphone 2 mg tablet 9 Active NARCAN 4 mg/actuation nasal spray USE 1 SPRAY NASALLY NEEDED FOR ACCIDENTAL OVERDOSE, CALL 911 IMMEDIATELY 0 Active levothyroxine (SYNTHROID, LEVOTHROID) 175 mcg tablet Take 112 mcg by mouth daily. 9 Active trospium (SANCTURA) 20 mg tablet trospium 20 mg tablet 9 Active Rinvoq 15 mg 24 hr tablet Take 15 mg by mouth once a day. 3 Active pregabalin (LYRICA) 50 mg capsule Take 100 mg by mouth 3 times a day. TAKE 300 MG 2 TIMES A DAY Active potassium chloride (KLOR-CON) 10 mEq CR tablet Take 20 mEq by mouth once a day. 2 Active predniSONE (DELTASONE) 1 mg tablet Take 3 mg by mouth once a day. 3 Active ketotifen (ZADITOR) 0.025 % ophthalmic solution Instill 2 drops into both eyes as needed. 3 Active cholecalcifero l (VITAMIN D3) 1,000 unit tablet Take 1,000 Units by mouth once a day. Active calcium carbonate-olesya min D3 600 mg-5 mcg (200 unit) per tablet Take 1 tablet by mouth daily. 2 Active Active Problems No known active problems Social History Tobacco Use Types Packs/Day Years Used Date Smoking Tobacco: Former Smokeless Tobacco: Never Alcohol Use Standard Drinks/Week Comments Not Currently 0 (1 standard drink = 0.6 oz pur e alcohol) Comments Unknown Sex and Gender Information Value Date Recorded Sex Assigned at Female 03/23/2020 10:57 AM EDT Legal Sex Female 11:12 AM EDT Gender Identity Female 03/23/2020 10:57 AM EDT Sexual Orientation Straight 03/23/2020 10 :57 AM EDT Last Filed Vital Signs Vital Sign Reading Time Taken Comments Blood Pressure 146/84 08/18/2023 12:27 PM EDT Pulse 63 08/18/2023 12:27 PM EDT Temperature 36.8 ??C (98.3 ??F) 08/18/2023 12:27 PM E DT Respiratory Rate 16 08/18/2023 12:27 PM EDT Oxygen Saturation - - Inhaled Oxygen Concentration - - Weight 109.8 kg (242 lb) 10/07/2023 1:20 PM EST Height 165.1 cm (5' 5 ) 10/07/2023 1:20 PM EST Body Mass Index 40.27 10/07/2023 1:20 PM EST Plan of Treatment Health Maintenance Due Date Last Done Comments Cologuard 1965 Colon Cancer Screening 1965 Colonoscopy 1965 FOBT / Fit Test 1965 HIV Screening 1965 HPV and Pap Smear 1965 Hepatitis C Screening 1965 Sigmoidoscopy 1965 Medicare AWV 02/16/[address] Lung Cancer Screening (Baseline) 02/16/2014 Pneumococcal Vaccine: 50+ Years (3 of 3 - PCV20 or PCV21) 11/17/2023 11/17/2018, 07/17/2012 RSV Vaccine (60+ years old and patients) (1 - Risk 60-74 years 1-dose series) 2024 COVID-19 Vaccine ( season) 2024 08/08/2023, 03/17/2023, 07/23/2022, Additional history exists Alcohol/Substance Use Screening 11/07/2024 Depression Screening and Follow-Up 11/07/2024 Social Drivers of Health Annual Screening 11/07/2024 Cervical Cancer Screening 06/18/2025 Pap Smear 06/18/2025 06/18/2022, 06/09/2020 Influenza Vaccine (Season Ended) 2025 08/08/2023, 07/22/2022, 07/22/2022, Additional history exists DTaP,Tdap,and Td Vaccines (3 - Td or Tdap) 12/10/2029 12/10/2019, 07/17/2012, 05/07/2003 Zoster Vaccines Completed 04/14/2021, 0207/2021, 11/08/2020 Hepatitis B Vaccines Aged Out No long er eligible based on patient's age to complete this topic Insurance MEDICARE [facility] Care Teams Final Block Press Operator Relationship Specialty Start Date End Date Kaycee Rebollar NP [address] [place] [phone] PCP - General Nurse Practitioner 09/08/23
--- OUTSIDE RECORDS SUMMARY | 2025-03-22 10:40 | XMS_ITS | Referral Summary ---
Author Organization [facility] Address [address] [place] [address] Care Team Providers Care Regional Hr Manager Name Role Phone Kaycee Rebollar NP Primary [...] 10/07/2023 1:20 PM EST Plan of Treatment Not on file Insurance MEDICARE [facility] Care Teams Regional Hr Manager Relationship Specialty Start Date End Date Kaycee Rebollar NP [address] [place] [phone] PCP - General Nurse Practitioner 09/08/23
[2025-03-22 11:22] LABS: Eosinophils Percent Auto 0.3 % (0-4); Hematocrit 34.7 % (37.0-47.0); Hemoglobin 11.1 g/dl (12.0-16.0); Imm Gran Abs Auto 0.01 X10*3/uL (0.00-0.03); Imm Gran Pct Auto 0.3 % (0.0-0.4); Lymphocytes Percent Auto 32.5 % (20-40); Mean Corpuscular Hemoglobin 31.6 pg (27.0-33.0); Mean Corpuscular Volume 98.9 fL (80.0-98.0); Mean Platelet Volume 11.8 fL (9.4-12.3); Monocytes Absolute Auto 0.4 X10*3/uL (0.1-1.2); Monocytes Percent Auto 13.1 % (2-11); Neutrophils Absolute Auto 1.7 x10*3/uL (2.0-8.3); Neutrophils Percent Auto 52.8 % (45-73); Platelet Count 195 X10*3/uL (160-400); Red Blood Count 3.51 X10*6/uL (4.20-5.50); Red Cell Distribution Width 12.8 % (11.0-16.0); White Blood Count 3.1 X10*3/uL (4.8-10.8)
[2025-03-22 12:05] LABS: Alanine Aminotransferase 22 U/L (0-31); Alkaline Phosphatase 84 U/L (39-117); Anion Gap 9 (12-20); Aspartate Amino Transferase 32 U/L (5-31); Bilirubin Total 0.4 mg/dL (0.0-1.0); Blood Urea Nitrogen 9 mg/dL (9-16); C Reactive Protein < 0.10 mg/dL (< or = 0.50); Carbon Dioxide 28 mmol/L (22-29); Chloride 109 mmol/L (96-108); Estimated Glomerular Filt Rate > 60; Glucose Random 89 mg/dL (60-115); Potassium 3.4 mmol/L (3.3-5.1); Sodium 143 mmol/L (135-145); Total Protein 6.3 g/dL (6.5-8.0)
[2025-03-22 12:09] LABS: Erythrocyte Sedimentation Rate 11 MM/HR (0-20)
[2025-03-22 12:37] LABS: HBc Num1 0.05 S/CO (0.00-0.79); HBsAGNum1 0.46 S/CO (0.00-0.99); Hepatitis A Antibody IgM 0.17 Index (0-0.79); Hepatitis B Core Antibody Nonreactive (Nonreactive); Hepatitis B Surface Antigen Negative (Negative); ~HepC Num1 0.05 S/CO (0.00-0.79); ~Hepatitis A Antibody IgM Nonreactive (Nonreactive); ~Hepatitis B Surface Antibody NONREACTIVE (Nonreactive); ~Hepatitis C Antibody Nonreactive (Nonreactive)
[2025-03-25 17:03] LABS: TS Negative Control Passed; TS Panel A 0; TS Panel B 2; TS Positive Control Passed; TSpotTB Negative (Negative)
== END 2025-03-22 10:20 | disposition home or self-care (01) ==
LOC: HO.LAB 10:19
PROVIDERS: PCP Nurse Practitioner Family; Referring Provider Student in an Organized Health Care Education/Training Program; Visit Provider Student in an Organized Health Care Education/Training Program
DX: L40.50 Arthropathic psoriasis, unspecified (principal); Z79.899 Other long term (current) drug therapy; Z11.7 Encounter for testing for latent tuberculosis infection; Z11.59 Encounter for screening for other viral diseases; Z72.89 Other problems related to lifestyle
CPT/HCPCS: 36415; 80053; 85025; 85652; 86140; 86481; 86704; 86706; 86709; 86803; 87340

== ENCOUNTER 2025-03-28 12:31 | Outpatient (AMB) | payer MEDICARE, MEDICAID, SELFPAY ==
--- NOTE | 2025-03-28 12:33 | A.OFFVIS_ITS ---
Vital Signs 03/28/25 12:37 Height 5 ft 4 in Weight 198 lb 6.656 oz BMI 34.1 BP 134/80 Blood Pressure Location Lt brachial Position Sitting Respiration 16 Pulse 69 Pulse Source Pulse Oximeter Pulse Oximetry (%) 98 Oxygen Delivery Method Room Air Intake Visit Reasons: PsA Intake Note: Patient presents for PsA follow up. Allergies fluticasone Allergy (Intermediate, Verified 03/28/25 12:37) bloody nose NSAIDS (Non-Steroidal Anti-Inflamma Allergy (Intermediate, Verified 03/28/25 12:37) hyperkalemia Seasonal Allergies Allergy (Unknown, Verified 03/28/25 12:37) Unknown amlodipine Adverse Reaction (Severe, Verified 03/28/25 12:37) Swelling Sulfa (Sulfonamide Antibiotics) Adverse Reaction (Mild, Verified 03/28/25 12:37) Unknown Medication List - Last Reconciled 03/28/25 by Romelia Berg MD acetaminophen (Tylenol Extra Strength) 1,000 mg PO Q6H PRN albuterol sulfate 90 mcg/actuation (ProAir HFA) 2 puffs inhalation Q6H PRN apremilast (Otezla) 30 mg PO BID azelastine 1 spray intranasal BID PRN calcium carbonate-vitamin D3 600 mg-10 mcg (400 unit) (Calcium 600 + D(3)) 1 tab PO DAILY cholecalciferol (vitamin D3) 25 mcg PO DAILY hydromorphone 2 mg PO Q6H PRN ipratropium bromide 2 sprays intranasal BID ketotifen fumarate 0.025%(0.035%) (Allergy Eye (ketotifen)) 1 drp ophthalmic (eye) BID levocetirizine 5 mg PO DAILY levothyroxine 112 mcg PO DAILY lidocaine 5% 1 patch topical DAILY naloxone 4 mg/actuation (Narcan) 4 mg intranasal Q2M PRN oxycodone 5 mg PO DAILY PRN prednisone 3 mg PO DAILY pregabalin (Lyrica) 300 mg PO BID Rinvoq ER (upadacitinib) 15 mg PO DAILY NS HPI Comments Details: Patient is a 60-year-old female with asthma, hypothyroidism, adrenal insufficiency, polyarticular osteoarthritis (s/p bilateral knee replacement, s/p bilateral hip replacement, s/p back surgery), and psoriasis complicated by psoriatic arthritis is here today for follow up Interval History: Patient last seen 11/20/[address] Callahan. At that time she was following up for her psoriasis and psoriatic arthritis. She is on Otezla 30 mg twice a day and Rinvoq 15 mg once a day. Reported that she was doing well with no flare-ups from her arthritis or her psoriasis. We will respect to her osteoarthritis she is status post left knee replacement and was doing well. Going to OT for her hand OA and trigger fingers without much improvement. Today, Continues to do well with respect to her PsO and PsA Continues to have issues with hand OA Rheumatologic History: PsO/PsA Diagnosed 2019 Leflunomide ineffective SSZ ineffective & might have caused anemia Methotrexate cause transaminitis with resolution after discontinuation Smith & reinachano had many bruises with self injection Xeljanz switched to Rinvoq 06/2023 effective Initial history: This is a 57-year-old female with the complex past medical history presents for evaluation of psoriatic arthritis. She also has history of CKD, (anemia of undetermined origin s/p bone marrow biopsy per patient) Her previous international project manager left the practice. Patient was diagnosed with psoriasis around 2002 and describes numerous therapies including PUVA as well as biologics including Humira and Stelara. Patient states she could not do the injectable drugs. She is currently on Otezla 30 mg Twice daily with good control of her psoriasis. She was diagnosed with psoriatic arthritis in 2019. She failed or could not tolerate leflunomide, methotrexate and sulfasalazine. She had been on Xeljanz with relative good control of her psoriatic arthritis however it was di scontinued since July 2022 prior to her left hip replacement it has not been resumed. Patient states that she has been having bilateral hand pain and morning stiffness lasting more than 1 hour. Current Rheumatology Medication(s): Apremilast 30 mg twice a day Rinvoq 15 mg daily [facility] Medical History Low back pain Spondylosis Psoriasis Zenker diverticulum GERD (gastroesophageal reflux disease) Asthma CKD (chronic kidney disease), stage IV Osteopenia Aneurysm, splenic artery Mitral valve regurgitation Hypertension Glaucoma CTS (carpal tunnel syndrome) DENISE (obstructive sleep apnea) Anxiety Manic bipolar I disorder Schizo affective schizophrenia Iron deficiency anemia Hypogammaglobulinemia Morbid obesity Adrenal cortical hypofunction Acquired hypothyroidism Surgical History Deviated septum History of eyelid surgery Hx of elbow surgery History of appendectomy Hx of breast surgery History of tonsillectomy History of back surgery Hx of foot surgery H/O total knee replacement History of hip replacement Family History Father Diabetes Prostate cancer Dementia Lung cancer Brother Asthma Glaucoma Bladder cancer Mother Hypertension Arthritis Social History Household Members: Family Alcohol intake: current Alcohol intake frequency: does not drink Patient Tobacco Use Status: Former Tobacco user Current occupational status: employed Current occupation: [employer] Review of Systems Const Details: Review of Systems Constitutional: Denies fever, chills, weight loss ENT: Denies vision changes, eye pain or eye redness, dental caries, dry mouth GI: Denies nausea, vomiting, diarrhea, abdominal pain, change in BM Pulm: Denies SOB, BUENO, hemoptysis, wheezing Cards: Denies chest pain, palpitations Skin: Denies Raynaud's, rash, nail changes, photosensitivity, CLEARING INSPECTOR: Denies headaches, weakness, paresthesias, recurrent falls MSK: as per HPI All other systems reviewed and are unremarkable except noted above Physical Exam Vital Signs: Last Vital Signs Pulse 69 03/28/25 12:37 Resp 16 03/28/25 12:37 BP 134/80 03/28/25 12:37 Pulse Ox 98 03/28/25 12:37 Oxygen Delivery Method Room Air 03/28/25 12:37 BMI result Body Mass Index 34.1 Vital signs reviewed Physical Examination CONSTITUITIONAL Patient alert and cooperative. Well appearing and in no apparent painful distress HEENT Conjunctiva and sclera clear. ?Pupils equal round and reactive to light. ?No lymphadenopathy. ? CHEST/RESPIRATORY SYSTEM Normal respiratory effort and able to speak in complete sentences. ?Clear to auscultation bilaterally. ?No crackles, rales, rhonchi, wheezes heard. CARDIAC SYSTEM Regular rate and rhythm. ?S1 and S2 heard no murmurs. ?Radial pulses intact bilaterally MSK Hands: ?Able to make a fist. No synovitis noted to the MCPs, PIPs or DIPs. ?No tenderness to palpation of these joints. Prominent herbedens nodes and bouchards nodes Wrists: ?Full range of motion at the wrists without pain. ?No tenderness to palpation or synovitis noted to the wrists. Elbows: Full range of motion without pain. No tenderness, weakness, swelling, increased warmth or erythema. Shoulders: Full range of active range of motion without pain. TTP of the right subacromial bursa Knees: ?Full range of motion. ?No tenderness, swelling, increased warmth or erythema.?Crepitations Ankles: Full range of motion. ?No tenderness, swelling, increased warmth or erythema.? Feet: ?Positive squeeze test on the left. Tender points:?No tenderness to palpation of the bilateral trapezius, supraspinatus, greater trochanters, anterior costochondral junctions, bilateral gluteal areas, bilateral suboccipital muscle insertions SKIN Skin intact without rashes. Office Procedures AMB Joint Injection/Aspiration Joint Injection/Aspiration Details: Procedure was explained to the patient and consent was obtained. ? The area of interest was identified and confirmed with patient. ?This was subsequently cleaned with chlorhexidine x3. ? The area was then anesthetized using ethyl chloride spray. 40 mg Kenalog with 1 cc 1% lidocaine was injected without issue. ?Minimal to no bleeding. ?Patient tolerated procedure. Primary Site: right shoulder Prep: site was prepped using aseptic technique and ethochloride spray was applied Injected: 40 mg of, Kenalog, with 1 mL of, 1% plain lidocaine and in the subcromial space Procedure: The patient tolerated the procedure well Coding 73703 - Large joint Procedure code (CPT) selection complete Office Meds lidocaine (PF) 10 mg/mL (1 %) injection solution Performing Provider: Romelia Berg MD Performing Location: [facility] [place] Rheumatology Administered by: Romelia Berg MD on 03/28/25 13:18 Dose Route Admin Location Dispensed Lot Number Expiration Date [facility] Assistant Mechanic 1 mL Infiltration right subacromial bursa 2 mL [id number] 01/05/27 78672-241-65 [employer] Kenalog 40 mg/mL suspension for injection Performing Provider: Romelia Berg MD Performing Location: [facility] [place] Rheumatology Administered by: Romelia Berg MD on 03/28/25 13:18 Dose Route Admin Location Dispensed Lot Number Expiration Date [facility] Assistant Mechanic 40 mg intrabursal right subacromial bursa 1 mL [id number] 05/07/26 [address]-0 AMNEAL DUSTINEN Results Reviewed Results Reviewed: Laboratory Tests 03/22/25 10:32 WBC 3.1 L RBC 3.51 L Hgb 11.1 L Hct 34.7 L Plt Count 195 ESR 11 Sodium 143 Potassium 3.4 Chloride 109 H Carbon Dioxide 28 BUN 9 Creatinine 0.86 Total Bilirubin 0.4 AST 32 H ALT 22 Alkaline Phosphatase 84 C-Reactive Protein < 0.10 Infectious labs 03/22/25 10:32 Hepatitis A IgM Ab Nonreactive Hep Bs Antigen Negative Hep Bs Antibody NONREACTIVE Hep B Core Total Ab Nonreactive Hepatitis C Ab (EIA) Nonreactive TB Test (T-Spot) Com Negative Assessment & Plan Assessment & Plan (1) Psoriatic arthritis: Comment: Diagnosed 2019 Leflunomide ineffective SSZ ineffective & might have caused anemia Methotrexate cause transaminitis with resolution after discontinuation [employer] had many bruises with self injection Xeljanz switched to Rinvoq 06/2023 effective Code(s): L40.50 - Arthropathic psoriasis, unspecified Category: Medical Plan: #PsO/PsA Patient is a 60-year-old female with psoriasis complicated by psoriatic arth ritis here today for follow up. Currently in remission on apremilast and Rinvoq. Currently on prednisone 3 mg for adrenal insufficiency. This is being managed by endocrine Plan - Apremilast 30mg bid - Rinvoq 15mg daily - RTC 4 months - Labs before visit: CBC, CMP, ESR, CRP (2) Polyarticular osteoarthritis: Code(s): M15.9 - Polyosteoarthritis, unspecified Plan: #Polyarticular OA Patient with polyarticular OA, complaining specifically of hand pain and stiffness. Does not have any space at home for paraffin wax bath. Runs hands under warm water. Recommends topical diclofenac Follows with hand surgery (3) Subacromial bursitis of right shoulder joint: Code(s): M75.51 - Bursitis of right shoulder Plan: #Right subacromial bursitis s/p steroid injection (4) Long-term current use of Janus kinase inhibitor: Code(s): Z79.622 - [facility] (current) use of Janus kinase inhibitor Plan: #Long-term Use of GABRIELE inhibitor : Rinvoq Discussed with patient the benefits and risks of GABRIELE inhibitors for the manag ement of the rheumatic condition Benefits include reduce pain, maintenance of remission and reduction of flares Risks include thromboembolic events, skin cancer and nonmelanoma skin cancers, other forms of cancer, cardiovascular alcohol and mortality Advise patient that they are to hold the medication and for up to 1 week after a febrile illness or an open skin wound (5) Long-term current use of apremilast: Code(s): Z79.61 - [facility] (current) use of immunomodulator Plan: #Long-term Current Use of Apremilast Risks and benefits of Apremilast in the management of psoriatic arthritis and psoriasis discussed with the patient. Benefits include decreased joint pain and morbidity Risks include GI upset including diarrhea, hypersensitivity reactions, significant weight loss, symptoms of depression Plan I spent 30 minutes reviewing the record and labs, taking a history, examining the patient, discussing the treatment plan, ordering diagnostic work up and documenting in the medical record Orders: Orders Complete Blood Count Auto Diff 4 Months L40.50 - Arthropathic psoriasis, unspecified C Reactive Protein 4 Months L40.50 - Arthropathic psoriasis, unspecified Erythrocyte Sedimentation Rate 4 Months L40.50 - Arthropathic psoriasis, unspecified Comprehensive Met. Panel 4 Months L40.50 - Arthropathic psoriasis, unspecified AMB Joint Injection/Aspiration Today M75.51 - Bursitis of right shoulder Medications: New lidocaine (PF) 1 mL Infiltration ONCE 2 mL 0RF M75.51 - Bursitis of right shoulder Kenalog (triamcinolone acetonide) 40 mg intrabursal ONCE 1 mL 0RF NS M75.51 - Bursitis of right shoulder Refilled Rinvoq ER (upadacitinib) 15 mg PO DAILY 30 tabs 4RF NS L40.50 - Arthropathic psoriasis, unspecified Coding Level of Care Code Est Pt Level 4 (24728) Complex EM visit Add On G2211 Diagnoses Psoriatic arthritis L40.50 Polyarticular osteoarthritis M15.9 Subacromial bursitis of right shoulder joint M75.51 Long-term current use of Janus kinase inhibitor Z79.622 Long-term current use of apremilast Z79.61 CPT Codes Coding - Large joint: 36988 - Large joint ([id number])
--- OUTSIDE RECORDS SUMMARY | 2025-03-28 12:35 | XMS_ITS | Clinical Summary ---
Author Organization [facility] Address [address] [place] [address] Phone Care Team Providers Care Crayon Painter Name Role Phone Kaycee Rebollar [facility] Primary Care Provider Allergies Active Allergy Reactions [...] Office Visit [facility] [address] [place] [phone] Jesus Manuel Ramirez MD [address] [phone] Health Maintenance Due Date Last Done Comments Breast Cancer Screening 1965 Colorectal Cancer Screening: Annual FOBT 02/16/2013 Colorectal Cancer Screening: Colonoscopy 02/16/2013 Colorectal Cancer Screening: Sigmoidoscopy 02/16/2013 Pneumococcal Vaccine: 50+ Years (3 of 3 - PCV20 or PCV21) 01/12/2019 11/17/2018, 07/17/2012 Influenza Vaccine (Season Ended) 2025 08/08/2023, 07/22/2022, 07/05/2021, Additional history exists Pneumococcal Vaccine: Peds (0 to 5 Years) and At-Risk Patients (6 to 49 Years) Discontinued 11/17/2018, 07/17/2012 Hepatitis B Vaccine Aged Out No longe r eligible based on patient's age to complete this topic Insurance Medicaid [place] Medicaid [place] Medicare Care Teams Crayon Painter Relationship Specialty Start Date End Date Kaycee Rebollar FNP-BC [address] [place] [phone] PCP - General 11/17/20
--- OUTSIDE RECORDS SUMMARY | 2025-03-28 12:35 | XMS_ITS | Referral Summary ---
Author Organization [facility] Address [address] [place] [address] Care Team Providers Care Rig Mechanic Name Role Phone Kaycee Rebollar NP Primary [...] of Treatment Not on file Insurance MEDICARE [facility] Care Teams Rig Mechanic Relationship Specialty Start Date End Date Kaycee Rebollar NP [address] [place] [phone] PCP - General Nurse Practitioner 09/08/23
--- OUTSIDE RECORDS SUMMARY | 2025-03-28 12:35 | XMS_ITS | Clinical Summary ---
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) from Last 3 Months Social History Tobacco Use Types Packs/Day Years Used Date Smoking Tobacco: Never Assessed Comments Unknown Sex and Gender Information Value Date Recorded Sex Assigned at Female 03/18/2025 1:35 PM EDT Legal Sex Female 3:06 PM EST Gender Identity Female 03/18/2025 1:35 PM EDT Sexual Orientation Straight 03/18/2025 1: 35 PM EDT Plan of Treatment Health Maintenance Due Date Last Done Comments Breast Cancer Screening 1965 Cervical Cancer Screening: Pap Smear 02/16/1985 Cholesterol Screening (Lipid Panel) 10/06/2022 Colorectal Cancer Screening: Colonoscopy 10/06/2022 Depression Screening 10/06/2022 HIV Screening 10/06/2022 Hepatitis C Screening 10/06/2022 Medicare Annual Wellness Visit 10/06/2022 Social Influencers of Health Screening 10/06/2022 Pneumococcal Vaccine: 50+ Years (3 of 3 - PCV20 or PCV21) 11/17/2023 11/17/2018, 07/17/2012 Pneumococcal Vaccine: Pediatrics (0 to 5 Years) and At-Risk Patients (6 to 64 Years) (3 of 3 - PCV20 or PCV21) 11/17/2023 11/17/2018, 07/17/2012 COVID-19 Vaccine (10 - Pfizer risk season) 2025 07/06/2024, 2024, 08/08/2023, Additional history exists Hypertension/CHF/CAD Annual BMP Blood Test 03/27/2025 DTaP,Tdap,and Td Vaccines (5 - Td or Tdap) 02/27/2035 02/27/2025, 12/10/2019, 07/17/2012, Additional history exists Zoster Vaccines Completed 04/14/2021, 07/2021, 11/08/2020 RSV Immunization Adult Patients Completed 2024 Influenza Vaccine Completed 07/06/2024, , 07/22/2022, Additional history exists HIB Vaccines Aged Out No longer eligi [...] to complete this topic RSV Immunization Patients Under 20 months Aged Out No longer eligible based on patient's age to complete this topic Varicella Vaccines Aged Out No longer eligible based on patient's age to complete this topic Procedures Procedure Name Priority Date/Time Associated Diagnosis Comments CT ANGIO CHEST/ABDOMEN WO AND/OR W CONTRAST Routine 03/28/2025 9:22 AM EDT 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 -------- FINAL REPORT -------- Dictated By: Teo Duvall Dictated Date: 03/28/2025 12:10 ET Assigned Physician: Teo Duvall Reviewed and Electronically Signed By: Teo Duvall Signed Date: 03/28/2025 12:16 ET Workstation ID: [id number] Transcribed By: Self Edit Transcribed Date: 03/28/2025 12:10 ET Narrative 03/28/2025 12:16 PM EDT PROCEDURE: CTA of the abdomen and pelvis INDICATION: Splenic artery aneurysm TECHNIQUE: Chest and abdomen CTA with intravenous administration of 90cc of ISOVUE-370. Multi planar reformats were created and interpreted. The examination was performed utilizing dose reduction techniques.3-D or MIP images were produced with postprocessing on an independent computer workstation. ?? COMPARISON: ??05/01/2024. FINDINGS: CTA: The ascending aorta measures 3.7 cm at the level of the right pulmonary artery. ??No aortic aneurysm or dissection. ??Major branching arteries arising from the aortic arch are patent. ??No subclavian artery aneurysm. ??Visualized portions of the brachiocephalic, subclavian, and common carotid arteries are patent. ??Descending thoracic aorta is normal in size. ??Celiac artery and its major branches are patent. ??14 mm splenic artery aneurysm and more distal 5 mm splenic artery aneurysm are stable. ??SMA and its major branches are patent. ??Renal arteries and WHITLEY are patent with mild atherosclerotic plaque at the origins of both renal arteries.. ??Abdominal aorta is normal in size. ??Visualized portions of the iliac arteries are patent. Chest: Central airways are patent. ??Lungs are clear. ??No pleural effusion or pneumothorax. Thyroid gland is small. ??No mediastinal or hilar lymphadenopathy. ??Patulous esophagus with some fluid in the mid esophagus which may be related to reflux. ??Cardiac chambers are normal in size. ??No pericardial effusion. ??Prominent coronary calcifications. No axillary adenopathy or soft tissue mass. Bones are normal for age. Abdomen: Liver, gallbladder, and biliary tree are within normal limits Normal spleen and adrenal glands. ??Fatty infiltration of the pancreas Kidneys are normal No mesenteric or retroperitoneal lymphadenopathy. Visualized portions of the bowel are within normal limits. ??No ascites, fluid collection, or free intraperitoneal air. Extensive postsurgical change throughout the lumbar spine with fusion hardware in place at several levels. ??No acute fracture. ??Small fat-containing periumbilical hernia. Procedure Note Teo Duvall MD - 03/28/2025 PROCEDURE: CTA of the abdomen and pelvis INDICATION: Splenic artery aneurysm TECHNIQUE: Chest and abdomen CTA with intravenous administration of 90ccof ISOVUE-370. Multi planar reformats were created and interpreted. Theexamination was performed utilizing dose reduction techniques.3-D or MIPimages were produced with postprocessing on an independent computerworkstation. COMPARISON: 05/01/2024. FINDINGS: CTA: The ascending aorta measures 3.7 cm at the level of the right pulmonaryartery. No aortic aneurysm or dissection. Major branching arteriesarising from the aortic arch are patent. No subclavian artery aneurysm.Visualized portions of the brachiocephalic, subclavian, and common carotidarteries are patent. Descending thoracic aorta is normal in size. Celiacartery and its major branches are patent. 14 mm splenic artery aneurysmand more distal 5 mm splenic artery aneurysm are stable. SMA and itsmajor branches are patent. Renal arteries and WHITLEY are patent with mildatherosclerotic plaque at the origins of both renal arteries.. Abdominalaorta is normal in size. Visualized portions of the iliac arteries arepatent. Chest: Central airways are patent. Lungs are clear. No pleural effusion orpneumothorax. Thyroid gland is small. No mediastinal or hilar lymphadenopathy.Patulous esophagus with some fluid in the mid esophagus which may berelated to reflux. Cardiac chambers are normal in size. No pericardialeffusion. Prominent coronary calcifications. No axillary adenopathy or soft tissue mass. Bones are normal for age. Abdomen: Liver, gallbladder, and biliary tree are within normal limits Normal spleen and adrenal glands. Fatty infiltration of the pancreas Kidneys are normal No mesenteric or retroperitoneal lymphadenopathy. Visualized portions of the bowel are within normal limits. No ascites,fluid collection, or free intraperitoneal air. Extensive postsurgical change throughout the lumbar spine with fusionhardware in place at several levels. No acute fracture. Smallfat-containing periumbilical hernia. IMPRESSION: No significant change compared to prior examination. 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 -------- FINAL REPORT -------- Dictated By: Teo Duvall Dictated Date: 03/28/2025 12:10 ET Assigned Physician: Teo Duvall Reviewed and Electronically Signed By: Teo Duvall Signed Date: 03/28/2025 12:16 ET Workstation ID: [id number] Transcribed By: Self Edit Transcribed Date: 03/28/2025 12:10 ET us Ricardo Jeffries MD IMG CT PROCEDURES Final Re sult from Last 3 Months Insurance MEDICAID - [place] MEDICARE Advance Directives Documents on File Type Date Recorded Patient Tile Picker Expl anation Health Care Decision (hx) 01/04/2018 AD [facility] DIRECTIVE Health Care Decision (hx) 01/04/2018 AD [facility] DIRECTIVE Health Care Decision (hx) 01/04/2018 AD [facility] DIRECTIVE Health Care Decision (hx) 01/04/2018 AD [facility] DIRECTIVE Care Teams Double Surface Operator Relationship Specialty Start Date End Date Kaycee Rebollar NP [address] [place] [phone] PCP - General Family Medicine 03/18/25
--- OUTSIDE RECORDS SUMMARY | 2025-03-28 12:35 | XMS_ITS | Clinical Summary ---
Author Organization [facility] Address [address] [place] [address] Care Team Providers Care Manager Programs Name Role Phone Kaycee Rebollar NP Primary [...] age to complete this topic Insurance MEDICARE [facility] Care Teams Manager Programs Relationship Specialty Start Date End Date Kaycee Rebollar NP [address] [place] [phone] PCP - General Nurse Practitioner 09/08/23
--- OUTSIDE RECORDS SUMMARY | 2025-03-28 12:35 | XMS_ITS | Encounter Summary ---
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 V24) Procedures CT Angio Chest/Abdomen wo and/or w Contrast Ricardo Jeffries MD [address] [place] [id number] Phone: tel: fax: [facility] Referral ID Status Reason Start Date Expiration Date V isits Requested Visits Authorized [id number] Authorized 03/14/2025 03/14/2026 1 1 Encounter Details Date Type Department Care Team (Latest Contact Info) Description 03/28/2025 8:56 AM EDT Hospital Encounter [facility] CT Scan [address] [place] [address] Aneurysm of other specified arteries ([facility]/HCC V24) Social History Tobacco Use Types Packs/Day Years Used Date Smoking Tobacco: Never Assessed Comments Unknown Sex and Gender Information Value Date Recorded Sex Assigned at Female 03/18/2025 1:35 PM EDT Legal Sex Female 3:06 PM EST Gender Identity Female 03/18/2025 1:35 PM EDT Sexual Orientation Straight 03/18/2025 1: 35 PM EDT documented as of this encounter Plan of Treatment Not on file documented as of this encounter Procedures Procedure Name Priority Date/Time Associated Diagnosis Comments CT ANGIO CHEST/ABDOMEN WO AND/OR W CONTRAST Routine 03/28/2025 9:22 AM EDT Aneurysm of other specified arteries (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) documented in this encounter Administered Medications Inactive Administered Medications - up to 3 most recent administrations Medication Order MAR Action Action Date Dose Rate Site iopamidoL (ISOVUE-370) 370 mg iodine /mL (76 %) injection 90 mL 90 mL, intravenous, Once in imaging, Starting on Antonella 03/28/25 at 0906, For 1 dose Given 03/28/2025 9:08 AM EDT 90 mL sodium chloride 0.9 % flush 10 mL 10 mL, intravenous, Once, On Antonella 03/28/25 at 0930, For 1 dose Given 03/28/2025 9:08 AM EDT 10 mL documented in this encounter Orders IV Count Last Ordered Date First Orde red Date INSERT PERIPHERAL IV 1 03/28/2025 documented in this encounter Care Teams Subscription Clerk Relationship Specialty Start Date End Date Kaycee Rebollar NP [address] [place] [address] PCP - General Family Medicine 03/18/25 documented as of this encounter
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
[2025-03-28 12:37] VITALS: BP 134/80; PULSE 69; RESP 16; O2SAT 98; BMI 34.1
== END 2025-03-28 13:10 | disposition home or self-care (01) ==
PROVIDERS: PCP Nurse Practitioner Family; Visit Provider Student in an Organized Health Care Education/Training Program
DX: L40.50 Arthropathic psoriasis, unspecified (principal); M15.9 Polyosteoarthritis, unspecified; M75.51 Bursitis of right shoulder; Z79.622 Long term (current) use of Janus kinase inhibitor; Z79.61 Long term (current) use of immunomodulator
CPT/HCPCS: 20610; 99214

== ENCOUNTER → 2025-03-28 12:31 | Outpatient (BNVA) | payer MEDICARE, MEDICAID, SELFPAY | PROVIDERS: PCP Nurse Practitioner Family; Visit Provider Student in an Organized Health Care Education/Training Program | DX: L40.50 Arthropathic psoriasis, unspecified (principal); M75.51 Bursitis of right shoulder; Z79.622 Long term (current) use of Janus kinase inhibitor; Z79.61 Long term (current) use of immunomodulator; Z96.643 Presence of artificial hip joint, bilateral; Z96.653 Presence of artificial knee joint, bilateral | CPT/HCPCS: 20610; 99212; J3300 ==

== ENCOUNTER 2025-07-24 11:19 | Outpatient (AMB) | payer MEDICARE, MEDICAID, SELFPAY ==
--- NOTE | 2025-07-24 11:43 | A.OFFVIS_ITS ---
Vital Signs 07/24/25 11:49 Height 5 ft 4 in Weight 211 lb 13.828 oz BMI 36.4 BP 122/74 Blood Pressure Location Rt brachial Position Sitting Pulse 58 Pulse Source Pulse Oximeter Pulse Oximetry (%) 94 Oxygen Delivery Method Room Air Intake Visit Reasons: PsA Intake Note: Patient presents for PsA follow up. Allergies fluticasone Allergy (Intermediate, Verified 07/24/25 11:49) bloody nose NSAIDS (Non-Steroidal Anti-Inflamma Allergy (Intermediate, Verified 07/24/25 11:49) hyperkalemia Seasonal Allergies Allergy (Unknown, Verified 07/24/25 11:49) Unknown amlodipine Adverse Reaction (Severe, Verified 07/24/25 11:49) Swelling Sulfa (Sulfonamide Antibiotics) Adverse Reaction (Mild, Verified 07/24/25 11:49) Unknown Medication List - Last Reconciled 07/24/25 by Romelia Berg MD acetaminophen (Tylenol Extra Strength) 1,000 mg PO Q6H PRN albuterol sulfate 90 mcg/actuation (ProAir HFA) 2 puffs inhalation Q6H PRN apremilast (Otezla) 30 mg PO BID azelastine 1 spray intranasal BID PRN calcium carbonate-vitamin D3 600 mg-10 mcg (400 unit) (Calcium 600 + D(3)) 1 tab PO DAILY cholecalciferol (vitamin D3) 25 mcg PO DAILY hydromorphone 2 mg PO Q6H PRN ipratropium bromide 2 sprays intranasal BID ketotifen fumarate 0.025%(0.035%) (Allergy Eye (ketotifen)) 1 drp ophthalmic (eye) BID levocetirizine 5 mg PO DAILY levothyroxine 112 mcg PO DAILY lidocaine 5% 1 patch topical DAILY naloxone 4 mg/actuation (Narcan) 4 mg intranasal Q2M PRN oxycodone 5 mg PO DAILY PRN prednisone 3 mg PO DAILY pregabalin (Lyrica) 300 mg PO BID Rinvoq ER (upadacitinib) 15 mg PO DAILY NS HPI Comments Details: Patient is a 60-year-old female with asthma, hypothyroidism, adrenal insufficiency, polyarticular osteoarthritis (s/p bilateral knee replacement, s/p bilateral hip replacement, s/p back surgery), and psoriasis complicated by psoriatic arthritis is here today for follow up Interval History: Patient last seen 03/28/25 with me - On Rinvoq 15mg daily and Apremilast 30mg bid - Doing well overall - Scattered joint complaints - Received right subacromial steroid injection Today, - On Rinvoq 15mg daily and Apremilast 30mg bid - Recently had left foot surgery, discharged from rehab 07/18 - Shoulder injection steroid helped - Hand OA sx Rheumatologic History: PsO/PsA Diagnosed 2019 Leflunomide ineffective SSZ ineffective & might have caused anemia Methotrexate cause transaminitis with resolution after discontinuation [employer] had many bruises with self injection Xeljanz switched to Rinvoq 06/2023 effective Initial history: This is a 57-year-old female with the complex past medical history presents for evaluation of psoriatic arthritis. 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 Patient was diagnosed with psoriasis around 2002 and describes numerous therapies including PUVA as well as biologics including Humira and Stelara. Patient states she could not do the injectable drugs. She is currently on Otezla 30 mg Twice daily with good control of her psoriasis. She was diagnosed with psoriatic arthritis in 2019. She failed or could not tolerate leflunomide, methotrexate and sulfasalazine. She had been on Xeljanz with relative good control of her psoriatic arthritis however it was discontinued since July 2022 prior to her left hip replacement it has not been resumed. Patient states that she has been having bilateral hand pain and morning stiffness lasting more than 1 hour. Current Rheumatology Medication(s): Apremilast 30 mg twice a day Rinvoq 15 mg daily [facility] Medical History Low back pain Spondylosis Psoriasis Zenker diverticulum GERD (gastroesophageal reflux disease) Asthma CKD (chronic kidney disease), stage IV Osteopenia Aneurysm, splenic artery Mitral valve regurgitation Hypertension Glaucoma CTS (carpal tunnel syndrome) DENISE (obstructive sleep apnea) Anxiety Manic bipolar I disorder Schizo affective schizophrenia Iron deficiency anemia Hypogammaglobulinemia Morbid obesity Adrenal cortical hypofunction Acquired hypothyroidism Surgical History Deviated septum History of eyelid surgery Hx of elbow surgery History of appendectomy Hx of breast surgery History of tonsillectomy History of back surgery Hx of foot surgery H/O total knee replacement History of hip replacement Family History Father Diabetes Prostate cancer Dementia Lung cancer Brother Asthma Glaucoma Bladder cancer Mother Hypertension Arthritis Social History Household Members: Family Alcohol intake: current Alcohol intake frequency: does not drink Patient Tobacco Use Status: Former Tobacco user Current occupational status: employed 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 Review of Systems Const Details: Review of Systems Constitutional: Denies fever, chills, weight loss ENT: Denies vision changes, eye pain or eye redness, dental caries, dry mouth GI: Denies nausea, vomiting, diarrhea, abdominal pain, change in BM Pulm: Denies SOB, BUENO, hemoptysis, wheezing Cards: Denies chest pain, palpitations Skin: Denies Raynaud's, rash, nail changes, photosensitivity, CONSTRUCTION AREA MANAGER: Denies headaches, weakness, paresthesias, recurrent falls MSK: as per HPI All other systems reviewed and are unremarkable except noted above Physical Exam Exam Exam: Vital signs reviewed Physical Examination CONSTITUITIONAL Patient alert and cooperative. Well appearing and in no apparent painful distress MSK Hands * Right Hand: Not able to make a full fist especially with the 2nd digit. No swelling or tenderness to palpation of the MCPs, PIPs or DIPs. Ulnar deviation of the 2nd digit at the DIP and PIP * Left Hand: Not able to make a full fist. No swelling or tenderness to palpation of the MCPs, PIPs or DIPs. * Prominent Herbedens nodes and Denise's nodes noted bilaterally * Squarring of the 1st CMC bilaterally Wrists * Right Wrist: Full ROM to flexion and extension. No swelling or TTP * Left Wrist: Full ROM to flexion and extension. No swelling or TTP Elbows * Right Elbow: Full ROM. No swelling or TTP. No TTP of the medial epicondyle. TTP of the lateral epicondyle * Left Elbow: Full ROM. No swelling or TTP. No TTP of the medial epicondyle. No TTP of the lateral epicondyle Shoulders * Right shoulder: Full ROM. No swelling noted. No TTP of the AC joint. No TTP of the subacromial bursa. No TTP of the posterior shoulder * Left shoulder: Full ROM. No swelling noted. No TTP of the AC joint. No TTP of the subacromial bursa. No TTP of the posterior shoulder Knees * Right knee: Full ROM. No swelling noted. No TTP of the knee joint line. No TTP of pes anserine bursa * Left knee: Full ROM. No swelling noted. No TTP of the knee joint line. No TTP of pes anserine bursa. * Surgical scar noted anteriorly bilaterally Ankles * Right ankle: Good ankle dorsiflexion and plantar flexion. No swelling. No TTP of the ankle joint * Left ankle: Good ankle dorsiflexion and plantar flexion. No swelling. No TTP of the ankle joint Feet * Right foot: Negative squeeze test * Left foot: In a boot Tender points? * No tenderness to palpation of the bilateral trapezius, supraspinatus, anterior costochondral junctions, bilateral suboccipital muscle insertions SKIN No rashes Vital Signs: Last Vital Signs Pulse 58 07/24/25 11:49 BP 122/74 07/24/25 11:49 Pulse Ox 94 07/24/25 11:49 Oxygen Delivery Method Room Air 07/24/25 11:49 BMI result Body Mass Index 36.4 Results Reviewed Results Reviewed: Laboratory Tests 03/22/25 07/19/25 10:32 [facility] WBC 3.1 L 4.4 RBC 3.51 L 3.82 Hgb 11.1 L 12.0 Hct 34.7 L 38.4 Plt Count 195 218 ESR 11 2 Sodium 143 Potassium 3.4 Chloride 109 H Carbon Dioxide 28 BUN 9 20 Creatinine 0.86 1.08 AST 32 H 33 ALT 22 22 C-Reactive Protein < 0.10 0.26 Laboratory Tests 03/22/25 10:32 Hepatitis A IgM Ab Nonreactive Hep Bs Antigen Negative Hep Bs Antibody NONREACTIVE Hep B Core Total Ab Nonreactive Hepatitis C Ab (EIA) Nonreactive TB Test (T-Spot) Com Negative Assessment & Plan Assessment & Plan (1) Psoriatic arthritis: Comment: Diagnosed 2019 Leflunomide ineffective SSZ ineffective & might have caused anemia Methotrexate cause transaminitis with resolution after discontinuation [employer]avierrickie [employer] ben had many bruises with self injection Xeljanz switched to Rinvoq 06/2023 effective Code(s): L40.50 - Arthropathic psoriasis, unspecified Category: Medical Plan: #PsO/PsA Patient is a 60-year-old female with psoriasis complicated by psoriatic arthritis here today for follow up. Currently in remission on apremilast and Rinvoq. Currently on prednisone 3 mg for adrenal insufficiency. This is being managed by endocrine Plan - Apremilast 30mg bid (from derm) - Rinvoq 15mg daily - RTC 6 months - Labs before visit: CBC, CMP, ESR, CRP (2) Polyarticular osteoarthritis: Code(s): M15.9 - Polyosteoarthritis, unspecified Plan: #Polyarticular OA Patient with polyarticular OA, complaining specifically of hand pain and stiffness. Does not have any space at home for paraffin wax bath. Runs hands under warm water. Recommends topical diclofenac Follows with hand surgery (3) Subacromial bursitis of right shoulder joint: Code(s): M75.51 - Bursitis of right shoulder Plan: #Right subacromial bursitis Improved (4) Long-term current use of Janus kinase inhibitor: Code(s): Z79.622 - prison (current) use of Janus kinase inhibitor Plan: #Long-term Use of GABRIELE inhibitor : Rinvoq Discussed with patient the benefits and risks of GABRIELE inhibitors for the management of the rheumatic condition Benefits include reduce pain, maintenance of remission and reduction of flares Risks include thromboembolic events, skin cancer and nonmelanoma skin cancers, other forms of cancer, cardiovascular alcohol and mortality Advise patient that they are to hold the medication and for up to 1 week after a febrile illness or an open skin wound (5) Long-term current use of apremilast: Code(s): Z79.61 - intermission coordinator (current) use of immunomodulator Plan: #Long-term Current Use of Apremilast Risks and benefits of Apremilast in the management of psoriatic arthritis and psoriasis discussed with the patient. Benefits include decreased joint pain and morbidity Risks include GI upset including diarrhea, hypersensitivity reactions, significant weight loss, symptoms of depression Plan I spent 30 minutes reviewing the record and labs, taking a history, examining the patient, discussing the treatment plan, ordering diagnostic work up and documenting in the medical record Medications: Refilled Rinvoq ER (upadacitinib) 15 mg PO DAILY 30 tabs 5RF NS L40.50 - Arthropathic psoriasis, unspecified Coding Level of Care Code Est Pt Level 4 (51546) Complex EM visit Add On G2211 Diagnoses Psoriatic arthritis L40.50 Polyarticular osteoarthritis M15.9 Subacromial bursitis of right shoulder joint M75.51 Long-term current use of Janus kinase inhibitor Z79.622 Long-term current use of apremilast Z79.61
[2025-07-24 11:49] VITALS: BP 122/74; PULSE 58; O2SAT 94; BMI 36.4
--- OUTSIDE RECORDS SUMMARY | 2025-07-24 14:36 | XMS_ITS | Clinical Summary ---
Author Organization [facility] Address [address] [place] [phone] Phone Care Team Providers Care Cook Sauce Name Role Phone Kaycee Rebollar NP Primary Care Provid er Social History Tobacco [...] Panel) 10/06/2022 Colorectal Cancer Screening: Colonoscopy 10/06/2022 HIV Screening 10/06/2022 Hepatitis C Screening 10/06/2022 Medicare Annual Wellness Visit 10/06/2022 Social Influencers of Health Screening 10/06/2022 Pneumococcal Vaccine: 50+ Years (3 of 3 - PCV20 or PCV21) 11/17/2023 11/17/2018, 07/17/2012 Depression Screening 11/07/2024 Hypertension/CHF/CAD Annual BMP Blood Test 03/27/2025 COVID-19 Vaccine (10 - Pfizer risk season) 2025 07/06/2024, 2024, 08/08/2023, Additional history exists Influenza Vaccine (#1) 2025 , 08/08/2023, 07/22/2022, Additional history exists DTaP,Tdap,and Td Vaccines (5 - Td or Tdap) 02/27/2035 02/27/2025, 12/10/2019, 07/17/2012, Additional history exists Zoster Vaccines Completed 04/14/2021, 07/2021, 11/08/2020 RSV Immunization Adult Patients Completed 2024 HIB Vaccines Aged Out No longer eligi [...] Documents on File Type Date Recorded Patient Head Of Visual Merchandising Expl anation Health Care Decision (hx) 01/04/2018 AD [facility] DIRECTIVE Health Care Decision (hx) 01/04/2018 AD [facility]SU DIRECTIVE Health Care Decision (hx) 01/04/2018 AD HSU DIRECTIVE Health Care Decision (hx) 01/04/2018 AD HSU DIRECTIVE Care Teams Cook Sauce Relationship Specialty Start Date End Date Kaycee Rebollar NP [address] [phone] PCP - General Family Medicine 03/18/25
--- OUTSIDE RECORDS SUMMARY | 2025-07-24 14:36 | XMS_ITS | Clinical Summary ---
Author Organization [facility] Address [address] [place] [address] Care Team Providers Care Cone Machine Operator Name Role Phone Kaycee Rebollar NP [...] 62 08/18/2023 12:27 PM EDT Temperature 36.8 C (98.3 F) 08/18/2023 12:27 PM EDT Respiratory Rate 16 08/18/2023 12:27 PM EDT [...] - Risk 60-74 years 1-dose series) 2024 Alcohol/Substance Use Screening 11/07/2024 Depression Screening and Follow-Up 11/07/2024 Social Drivers of Health Annual Screening 11/07/2024 Cervical Cancer Screening 06/18/2025 Pap Smear 06/18/2025 06/18/2022, 06/09/2020 COVID-19 Vaccine ( season) 2025 08/08/2023, 03/17/2023, 07/23/2022, Additional history exists Influenza Vaccine (#1) 2025 , 07/22/2022, 07/22/2022, Additional history exists DTaP,Tdap,and Td Vaccines (3 - Td or Tdap) 12/10/2029 12/10/2019, 07/17/2012, 05/07/2003 Zoster Vaccines Completed 04/14/2021, 02/0 07/2021, 11/08/2020 Hepatitis B Vaccines Aged Out No long er eligible based on patient's age to complete this topic Insurance MEDICARE [facility] Care Teams Cone Machine Operator Relationship Specialty Start Date End Date Kaycee Rebollar NP [address] [place] [phone] PCP - General Nurse Practitioner 09/08/23
--- OUTSIDE RECORDS SUMMARY | 2025-07-24 14:36 | XMS_ITS | Clinical Summary ---
Author Organization [facility] Address [address] [place] [address] Phone Care Team Providers Care Phone Representative Name Role Phone Kaycee Rebollar [facility] Primary Care Provider Allergies Active Allergy Reactions [...] hours if needed for moderate pain Active predniSONE (DELTASONE) 1 MG tablet Take 3 mg by mouth 1 (one) time each day Active pantoprazole (PROTONIX) 40 MG EC tablet Take 40 mg by mouth 1 (one) time each day before breakfast Do not crush, chew, or split. Active Calcium Carb-Cholecalci ferol (CALCIUM 600 + D PO) Take by mouth Acti ve Active Problems Problem Noted Date Diagnosed Date Asthma 07/28/2023 07/28/2023 Chronic back pain 07/28/2023 07/28/2023 History of clinical finding in subject 07/28/2023 Overview (07/28/2023): Pain relevant problem list [...] Sign Reading Time Taken Comments Blood Pressure 120/68 04/04/2025 4:24 PM EDT Pulse 49 04/04/2025 4:24 PM EDT Temperature - - Respiratory Rate - - Oxygen Saturation 98% 09/23/2021 4:07 PM EST Inhaled Oxygen Concentration - - Weight 88.9 kg (196 lb) 04/04/2025 4:24 PM EDT Height 165.1 cm (5' 5 ) 09/23/2021 4:07 PM EST Body Mass Index 32.62 09/23/2021 4:07 PM EST Plan of Treatment Upcoming Encounters Date Type Department Care Team (Late st Contact Info) Description 03/20/2026 4:30 PM EDT Office Visit [facility] [address] [place] [phone] Jesus Manuel Ramirez MD [address] [phone] Health Maintenance Due Date Last Done Comments Breast Cancer Screening 1965 Colorectal Cancer Screening: Annual FOBT 02/16/2013 Colorectal Cancer Screening: Colonoscopy 02/16/2013 Colorectal Cancer Screening: Sigmoidoscopy 02/16/2013 Pneumococcal Vaccine: 50+ Years (3 of 3 - PCV20 or PCV21) 01/12/2019 11/17/2018, 07/17/2012 Influenza Vaccine (#1) 2025 3, 07/22/2022, 07/05/2021, Additional history exists Pneumococcal Vaccine: Peds (0 to 5 Years) and At-Risk Patients (6 to 49 Years) Discontinued 11/17/2018, 07/17/2012 Hepatitis B Vaccine Aged Out No longe r eligible based on patient's age to complete this topic Insurance Medicaid [place] Medicaid [place] Medicare Care Teams Phone Representative Relationship Specialty Start Date End Date Kaycee Rebollar FNP-BC [address] [place] [address], [place] [address] PCP - General 11/17/20
== END 2025-07-24 12:25 | disposition home or self-care (01) ==
LOC: HO.RHES 11:20
PROVIDERS: PCP Nurse Practitioner Family; Visit Provider Student in an Organized Health Care Education/Training Program
DX: L40.50 Arthropathic psoriasis, unspecified (principal); M15.9 Polyosteoarthritis, unspecified; M75.51 Bursitis of right shoulder; Z79.622 Long term (current) use of Janus kinase inhibitor; Z79.61 Long term (current) use of immunomodulator
CPT/HCPCS: 99214; G2211

== ENCOUNTER → 2025-07-24 11:19 | Outpatient (BNVA) | payer MEDICARE, MEDICAID, SELFPAY | PROVIDERS: PCP Nurse Practitioner Family; Visit Provider Student in an Organized Health Care Education/Training Program | DX: L40.50 Arthropathic psoriasis, unspecified (principal); M15.9 Polyosteoarthritis, unspecified; M75.51 Bursitis of right shoulder; Z79.622 Long term (current) use of Janus kinase inhibitor; Z79.61 Long term (current) use of immunomodulator | CPT/HCPCS: 99212 ==

== ENCOUNTER 2025-10-17 10:53 | Outpatient (AMB) | payer MEDICARE, MEDICAID, SELFPAY ==
--- NOTE | 2025-10-17 11:33 | A.OFFVIS_ITS ---
Vital Signs 10/17/25 11:43 Height 5 ft 4 in Weight 210 lb 1.608 oz BMI 36.1 BP 142/80 H Blood Pressure Location Lt brachial Position Sitting Pulse 66 Pulse Source Pulse Oximeter Pulse Oximetry (%) 98 Oxygen Delivery Method Room Air Intake Visit Reasons: pain both hands Intake Note: Patient presents today for bilateral hand pain follow up. Manager Medicare Marketing Required: No Information Interpreted: non-clinical & clinical Accompanied by: Self / Same As Patient Allergies fluticasone Allergy (Intermediate, Verified 10/17/25 11:42) bloody nose NSAIDS (Non-Steroidal Anti-Inflamma Allergy (Intermediate, Verified 10/17/25 11:42) hyperkalemia Seasonal Allergies Allergy (Unknown, Verified 10/17/25 11:42) Unknown amlodipine Adverse Reaction (Severe, Verified 10/17/25 11:42) Swelling Sulfa (Sulfonamide Antibiotics) Adverse Reaction (Mild, Verified 10/17/25 11:42) Unknown Medication List - Last Reconciled 10/17/25 by Romelia Berg MD acetaminophen (Tylenol Extra Strength) 1,000 mg PO Q6H PRN albuterol sulfate 90 mcg/actuation (ProAir HFA) 2 puffs inhalation Q6H PRN apremilast (Otezla) 30 mg PO BID azelastine 1 spray intranasal BID PRN calcium carbonate-vitamin D3 600 mg-10 mcg (400 unit) (Calcium 600 + D(3)) 1 tab PO DAILY cholecalciferol (vitamin D3) 25 mcg PO DAILY hydromorphone 2 mg PO Q6H PRN ipratropium bromide 2 sprays intranasal BID ketotifen fumarate 0.025%(0.035%) (Allergy Eye (ketotifen)) 1 drp ophthalmic (eye) BID levocetirizine 5 mg PO DAILY levothyroxine 112 mcg PO DAILY lidocaine 5% 1 patch topical DAILY naloxone 4 mg/actuation (Narcan) 4 mg intranasal Q2M PRN oxycodone 5 mg PO DAILY PRN prednisone 3 mg PO DAILY pregabalin (Lyrica) 300 mg PO BID Rinvoq ER (upadacitinib) 15 mg PO DAILY NS HPI Comments Details: Patient is a 60-year-old female with asthma, hypothyroidism, adrenal insufficiency, polyarticular osteoarthritis (s/p bilateral knee replacement, s/p bilateral hip replacement, s/p back surgery), and psoriasis complicated by psoriatic arthritis is here today for follow up Interval History: Patient last seen 07/24/25 with me - On Rinvoq 15mg daily and Apremilast 30mg bid - Recently had left foot surgery, discharged from rehab 07/18 - Shoulder injection steroid helped - Hand OA sx Today - On Rinvoq 15mg daily and Apremilast 30mg bid (from derm) - Presenting for follow-up of psoriatic arthritis and worsening hand symptoms. - She reports that her hands have been particularly severe, with stiffness in the mornings and at night to the point where she cannot close them. - She also notes a burning sensation in her hands at night. - Her current medications for this include Rinvoq and Otezla. - Past medications for her skin psoriasis and/or psoriatic arthritis include leflunomide, methotrexate, sulfasalazine, Stelara, and Xeljanz, which she states she did not notice a difference with. - For symptomatic relief, she soaks her hands in hot water and uses topical diclofenac gel. - She recently had a follow-up for a prior left foot surgery and was told she may have a stress fracture in that foot, for which she is now in a boot and awaiting MRI results. - The patient also reports that three weeks after being discharged from rehab for her foot surgery in July, she dislocated her right hip, requiring an additional 3-4 weeks of rehabilitation. - She adds that her left shoulder, which had improved after an injection in March, has started to ache again, which she attributes to using crutches. Rheumatologic History: PsO/PsA Diagnosed 2020 Leflunomide ineffective SSZ ineffective & might have caused anemia Methotrexate cause transaminitis with resolution after discontinuation Humira - not effective [employer] had many bruises with self injection Xeljanz switched to Rinvoq 06/2023 effective Initial history: This is a 57-year-old female with the complex past medical history presents for evaluation of psoriatic arthritis. She also has history of CKD, (anemia of undetermined origin s/p bone marrow biopsy per patient) Her previous loom doffer left the practice. Patient was diagnosed with psoriasis around 2002 and describes numerous therapies including PUVA as well as biologics including Humira and Stelara. Patient states she could not do the injectable drugs. She is currently on Otezla 30 mg Twice daily with good control of her psoriasis. She was diagnosed with psoriatic arthritis in 2019. She failed or could not tolerate leflunomide, methotrexate and sulfasalazine. She had been on Xeljanz with relative good control of her psoriatic arthritis however it was discontinued since July 2022 prior to her left hip replacement it has not been resumed. Patient states that she has been having bilateral hand pain and morning stiffness lasting more than 1 hour. Current Rheumatology Medication(s): Apremilast 30 mg twice a day (from derm) Rinvoq 15 mg daily [facility] Medical History (Updated 10/17/25 @ 12:05 by Romelia Berg MD) Low back pain Spondylosis Psoriasis Zenker diverticulum GERD (gastroesophageal reflux disease) Asthma CKD (chronic kidney disease), stage IV Osteopenia Aneurysm, splenic artery Mitral valve regurgitation Hypertension Glaucoma CTS (carpal tunnel syndrome) DENISE (obstructive sleep apnea) Anxiety Manic bipolar I disorder Schizo affective schizophrenia Iron deficiency anemia Hypogammaglobulinemia Morbid obesity Adrenal cortical hypofunction Acquired hypothyroidism Surgical History S/P foot surgery, left Deviated septum History of eyelid surgery Hx of elbow surgery History of appendectomy Hx of breast surgery History of tonsillectomy History of back surgery Hx of foot surgery H/O total knee replacement History of hip replacement Family History Father Diabetes Prostate cancer Dementia Lung cancer Brother Asthma Glaucoma Bladder cancer Mother Hypertension Arthritis Social History Household Members: Family Alcohol intake: current Alcohol intake frequency: does not drink Patient Tobacco Use Status: Former Tobacco user Current occupational status: employed Current occupation: [employer] Review of Systems Const Details: Review of Systems - Musculoskeletal: Reports worsening bilateral hand pain and stiffness, especially in the morning and at night, with inability to form a fist. - Reports dropping things frequently. - Reports recurrent left shoulder ache. - Reports current left foot pain secondary to a suspected stress fracture. - Neurological: Reports a burning sensation in her hands at night. - Dermatologic: Reports having one or two psoriatic lesions. All other systems reviewed and are unremarkable except noted above Physical Exam Exam Exam: Vital signs reviewed Physical Examination CONSTITUITIONAL Patient alert and cooperative. Well appearing and in no apparent painful distress MSK Hands * Right Hand: Not able to make a fist. Tenderness to palpation of the 1st through 5th PIPs, DIPs, and MCPs. * Left Hand: Not able to make a fist. Tenderness to palpation of the 2nd and 3rd DIPs, 2nd, 3rd, and 4th PIPs, 2nd, 3rd, 4th, and 5th MCPs, and 1st MCP, IP, and CMC joints. Wrists * Right Wrist: Full ROM to flexion and extension. No swelling. * Left Wrist: Full ROM to flexion and extension. No swelling. * Tenderness to palpation bilaterally. Elbows * Right Elbow: Full ROM. No swelling or TTP. No TTP of the medial epicondyle. No TTP of the lateral epicondyle * Left Elbow: Full ROM. No swelling or TTP. No TTP of the medial epicondyle. No TTP of the lateral epicondyle Shoulders * Right shoulder: No swelling noted. * Left shoulder: No swelling noted. * Tenderness to palpation over the left and right subacromial bursae and AC joints. Knees * Right knee: No swelling noted. No TTP of pes anserine bursa * Left knee: No swelling noted. No TTP of pes anserine bursa. * Bilateral surgical scars noted over the knee. Good range of motion of the prosthetic. Ankles * Right ankle: Good ankle dorsiflexion and plantar flexion. No swelling. No TTP of the ankle joint * Left ankle: Good ankle dorsiflexion and plantar flexion. No swelling. No TTP of the ankle joint Feet * Right foot: Positive squeeze test * Left foot: Left lower leg in a boot. Tender points? * No tenderness to palpation of the bilateral trapezius, supraspinatus, anterior costochondral junctions, bilateral suboccipital muscle insertions Vital Signs: Last Vital Signs Pulse 66 10/17/25 11:43 BP 142/80 H 10/17/25 11:43 Pulse Ox 98 10/17/25 11:43 Oxygen Delivery Method Room Air 10/17/25 11:43 BMI result Body Mass Index 36.1 Results Reviewed Results Reviewed: Laboratory Tests 08/19/25 08/27/25 09/10/25 05:00 04:40 05:00 WBC 3.5 L RBC 3.47 L Hgb 10.9 L Hct 33.2 L Plt Count 140 L D ESR 10 Sodium 141 Potassium 4.6 D Chloride 104 Carbon Dioxide 31 H BUN 16 Creatinine 0.88 AST 24 ALT 13 C-Reactive Protein < 0.10 Laboratory Tests 03/22/25 10:32 Hepatitis A IgM Ab Nonreactive Hep Bs Antigen Negative Hep Bs Antibody NONREACTIVE Hep B Core Total Ab Nonreactive Hepatitis C Ab (EIA) Nonreactive TB Test (T-Spot) Com Negative Assessment & Plan Assessment & Plan (1) Psoriatic arthritis: Comment: Diagnosed 2019 Leflunomide ineffective SSZ ineffective & might have caused anemia Methotrexate cause transaminitis with resolution after discontinuation Humira - not effective [employer] had many bruises with self injection Xeljanz switched to Rinvoq 06/2023 effective Code(s): L40.50 - Arthropathic psoriasis, unspecified Category: Medical Plan: #PsO/PsA Patient is a 60-year-old female with psoriasis complicated by psoriatic arthritis here today for follow up. The patient's current regimen of Rinvoq and Otezla is not adequately controlling her psoriatic arthritis symptoms, particularly in her hands. She has a history of trying multiple prior therapies, including leflunomide, methotrexate, sulfasalazine, and Xeljanz, with insufficient response. The plan is to switch her medication from Rinvoq to Cosentyx. Cosentyx will be administered as a self-injection, starting with a loading dose of one injection per week for four weeks, followed by a maintenance dose of one injection every four weeks. She was instructed to continue Rinvoq until the Cosentyx pens are received, then wait two days after the last Rinvoq dose before starting the new medication. The patient agreed to try self-injections. Follow- up is scheduled for January, in approximately four months, and she will have blood work done prior to the visit. Plan - Apremilast 30mg bid (from derm) - Stop Rinvoq - Start Cosentyx 150 mg at weeks 0, 1, 2, 3, and 4 followed by 150 mg every 4 weeks; consider an increase to 300 mg every 4 weeks - RTC 4 months - Labs before visit: CBC, CMP, ESR, CRP (2) Polyarticular osteoarthritis: Code(s): M15.9 - Polyosteoarthritis, unspecified Plan: #Polyarticular OA Patient with polyarticular OA, complaining specifically of hand pain and stiffness. The patient's hand symptoms are also significantly contributed by osteoarthritis, with some joints being [id number]. This causes functional limitations, such as difficulty holding pens and dropping items. She reports symptomatic relief from soaking her hands in hot water and using topical diclofenac gel, which she will continue as needed. (3) Long-term current use of apremilast: Code(s): Z79.61 - rat exterminator (current) use of immunomodulator Plan: #Long-term Current Use of Apremilast Risks and benefits of Apremilast in the management of psoriatic arthritis and psoriasis discussed with the patient. Benefits include decreased joint pain and morbidity Risks include GI upset including diarrhea, hypersensitivity reactions, significant weight loss, symptoms of depression (4) Long-term current use of secukinumab: Code(s): Z79.620 - rat exterminator (current) use of immunosuppressive biologic Plan: #skilled nursing treatment with IL 17 inhibitors: Consentyx (Secukinumab)/ Taltz (Ixekizumab) Risks and benefits of IL 17 inhibitors discussed with the patient. Risks include infections, injection site reactions, activation of inflammatory bowel disease. Benefits include improved disease activity. Discussed with patient that if she is feeling sick or having flu-like symptoms she is to hold the medication that week and resolved the following week. Plan I explained to the patient that her hand symptoms are caused by a combination of psoriatic arthritis and osteoarthritis. Given that her current medication, Rinvoq, is not providing adequate relief, I recommended changing her therapy. I presented the next treatment options, which involve either self-administered injections or monthly intravenous infusions, as there are no other oral medications available. We discussed starting Cosentyx, a self-injection, and she agreed to try this approach. I detailed the dosing schedule, which includes a weekly loading dose for four weeks followed by a maintenance dose every four weeks. I instructed her to continue Rinvoq until she obtains the Cosentyx and then to wait two days after her last Rinvoq dose before initiating the first injection. We will assess her response to the new treatment at her follow-up appointment in January. I spent 40 minutes reviewing the record and labs, taking a history, examining the patient, discussing the treatment plan, ordering diagnostic work up and documenting in the medical record Medications: New secukinumab (Cosentyx Pen) Start 4 weeks after the 5th loading dose 150 mg subcut Q4W 1 mL 5RF L40.50 - Arthropathic psoriasis, unspecified secukinumab (Cosentyx Pen) Loading dose 150 mg subcut QWEEK 5 mL 0RF L40.50 - Arthropathic psoriasis, unspecified Discontinued Rinvoq ER (upadacitinib) Discontinued Reason: Doctor's Order 15 mg PO DAILY 30 tabs 5RF NS L40.50 - Arthropathic psoriasis, unspecified Coding Level of Care Code Est Pt Level 5 (88809) Add On Problem Visit Only Diagnoses Psoriatic arthritis L40.50 Polyarticular osteoarthritis M15.9 Long-term current use of apremilast Z79.61 Long-term current use of secukinumab Z79.620
[2025-10-17 11:43] VITALS: BP 142/80; PULSE 66; O2SAT 98; BMI 36.1
== END 2025-10-17 12:47 | disposition home or self-care (01) ==
LOC: HO.RHES 10:54
PROVIDERS: PCP Nurse Practitioner Family; Visit Provider Student in an Organized Health Care Education/Training Program
DX: L40.50 Arthropathic psoriasis, unspecified (principal); M15.0 Primary generalized (osteo)arthritis; Z79.61 Long term (current) use of immunomodulator; Z79.620 Long term (current) use of immunosuppressive biologic
CPT/HCPCS: 99215; G2211

== ENCOUNTER → 2025-10-17 10:53 | Outpatient (BNVA) | payer MEDICARE, MEDICAID, SELFPAY | PROVIDERS: PCP Nurse Practitioner Family; Visit Provider Student in an Organized Health Care Education/Training Program | DX: L40.50 Arthropathic psoriasis, unspecified (principal); M15.9 Polyosteoarthritis, unspecified; Z79.61 Long term (current) use of immunomodulator; Z79.620 Long term (current) use of immunosuppressive biologic | CPT/HCPCS: 99212 ==